=== PATIENT | female | born 1935 | race Caucasian/White ===

== ENCOUNTER 2017-04-30 16:18 | Emergency (ER) | payer MEDICARE, OTHER ==
[2016-12-21 07:58] VITALS: Wt 81.6 kg
[~2017-04-30 16:18] MED LIST: ALEN70TA43 PO; AMLO-96 PO; AMLO2.5T74 PO; ASPI-1471 PO; ATOR-1 PO; ATOR10TA24 PO; ATR80PT PO; AZIT-1 PO; BUME0.5T3 PO; BUME1TAB19 PO; BUME1TAB4 PO; CALC500T42 PO; CALC600T72 PO; CHOL100052 PO; CHOL200022 PO; CIT500PT PO; CLON-303 PO; CLOP75TA PO; CYAN25004 PO; CYCL10TA29 PO; DEXL60CA6 PO; ECHI80CA2 PO; FLAX340P2 PO; FLONASE; FLU180SY9 IM; FLU45SYR25 IM ONLY; FLUT50DI3 IH; FOLI-68 PO; FURO-45 PO; FURO-47 PO; GEM600 PO; GEMF600T91 PO; GLIM1TAB25 PO; GLUC100026 PO; GUAI-274 PO; GUAI600T57 PO; GUALA600 PO; HYDR-385 PO; HYDR-4309 PO; HYDR5SUS PO; IBAN150T6 PO; IBUP200C71 PO; IBUP800T37 PO; LACT1CAP6 PO; LEVO-271 PO; LEVO75TA68 PO; LEVO75TA7 PO; LEVO75TA73 PO; LINA145C PO; LOR5/325 PO; MAGN250T25 PO; MECL12.5 PO; METF-410 PO; METF-420 PO; MILK500C2 PO; MON10 PO; MONT10TA22 PO; MUCINEX; MULT-1335 PO; MULT-820 PO; NEXIUM; NITR0.4T3 SL; NYST1POW24 PO; OMEG-97 PO; OMEG500C5 PO; OMEP-137 PO; OMEP40CA48 PO; PANT40TA65 PO; PNEU0.5D3 IM; POLY17PO25 PO; POT10 PO; POTA10CA40 PO; POTA2.5T7 PO; POTA20TA10 PO; POTA20TA94 PO; PRED20TA6 PO; RABE20TA33 PO; RANI-324 PO; RANI75TA5 PO; ROPI3TAB16 PO; ROSU10TA3 PO; SINGULAR; ZINC15TA4 PO; [UNRECOGNIZED DRUG - CODE] PO
--- NOTE | 2017-04-30 16:30 | ER Report ---
History and Physical Time Seen By MD: 16:29 HPI/ROS CHIEF COMPLAINT: Epigastric pain HISTORY OF PRESENT ILLNESS: 81-year-old female patient presents to emergency room with complaint of epigastric abdominal pain. Patient states this has been going on today. She states it started this morning after she ate breakfast. She states that shortly after eating she developed discomfort in the epigastric region. She states that the pain persisted for approximately an hour and then became significantly worse. She consider coming to the emergency room at that time when it completely resolved on its own. She states that she waited a few hours and then 8 a pair. She states that she took her first by the pair that the pain returned. She states the pain is moderate this time. She denies having any nausea, vomiting or diarrhea. She has not taken any medication for this. Patient states she does have a history of cholecystectomy. REVIEW OF SYSTEMS: Respiratory: No cough, no dyspnea. Cardiovascular: No chest pain, no palpitations. Gastrointestinal: As noted above Musculoskeletal: No back pain. Allergies: Coded Allergies: meclizine (Verified Allergy, Intermediate, Dizziness, 12/20/16) chlorpheniramine (Verified Allergy, Unknown, 12/20/16) pseudoephedrine (Verified Allergy, Unknown, 12/20/16) Home Meds Active Scripts Guaifenesin (TUSSIN) 100 Mg/5 Ml Liquid, 100 MG PO Q4-6H, #200 ML Prov:ISABEL CURTIS MD 04/09/17 Glimepiride (GLIMEPIRIDE) 1 Mg Tablet, 1 MG PO QDAY, #10 TAB Prov:ISABEL CURTIS MD 01/29/17 Glimepiride (GLIMEPIRIDE) 1 Mg Tablet, 1 MG PO QDAY, #90 TAB 3 Refills Prov:ISABEL CURTIS MD 01/29/17 Folic Acid (FOLIC ACID) 1 Mg Tablet, 1 MG PO QDAY for low hgb, #90 TAB 3 Refills Prov:ISABEL CURTIS MD 08/14/16 Levothyroxine Sodium (LEVOTHYROXINE SODIUM) 75 Mcg Tablet, 1 TAB PO QDAY, #90 TAB 4 Refills Prov:ISABEL CURTIS MD 08/14/16 Linaclotide (LINZESS) 145 Mcg Capsule, 1 CAP PO DAILY, #90 CAPSULE 3 Refills Prov:ISABEL CURTIS MD 04/25/16 Reported Medications Echinacea Purpurea Root (ECHINACEA) 80 Mg Capsule, 80 MG PO DAILY, CAPSULE 01/10/17 Ranitidine Hcl (ZANTAC) 150 Mg Tablet, 150 MG PO BID, TAB 01/10/17 Aspirin (ASPIR 81) 81 Mg Tablet.dr, 1 TAB PO QDAY, TAB 11/09/16 Nitroglycerin (NITROGLYCERIN) 0.4 Mg Tab.subl, 1 TAB SL Q5MIN Y for PAIN Max 3 doses. Call 911 if pain is not relieved. 11/09/16 Amlodipine Besylate (AMLODIPINE BESYLATE) 5 Mg Tablet, 1 TAB PO QDAY, TAB 11/09/16 Clopidogrel Bisulfate (CLOPIDOGREL) 75 Mg Tablet, 1 TAB PO QDAY, TAB 11/09/16 Cyanocobalamin (Vitamin B-12) (Vitamin B12) 2,500 Mcg Tablet, 1 TAB PO DAILY 02/22/16 Guaifenesin (MUCINEX) 600 Mg Tablet.er, PO PRN 04/15/15 Calcium Carbonate (Calcium) 600 Mg Tablet, 1 TAB PO DAILY, 0 Refills 08/11/10 Multivitamins W-Minerals (Multiple Vitamin) 1 Tab Tablet, 1 TAB PO DAILY, 0 Refills 08/11/10 Discontinued Reported Medications Lactobacillus Combination No.4 (PROBIOTIC) 1 Each Capsule, 1 EACH PO DAILY, CAPSULE 01/10/17 Discontinued Scripts Hydrocodone/Chlorphen Polis (HYDROCODONE-CHLORPHENIRAM SUSP) 5 Ml Yaneth.er.12h, 1 TSP PO BID, #100 ML Prov:ISABEL CURTIS MD 04/09/17 Azithromycin (ZITHROMAX) 250 Mg Tablet, 2 TAB PO ONCE, #6 TAB Two tabs now and then 1 daily for 4 days Prov:ISABEL CURTIS MD 04/09/17 Atorvastatin Calcium (LIPITOR) 10 Mg Tablet, 1 TAB PO HS, #30 TAB Prov:IASBEL CURTIS MD 03/27/17 Hydrocodone Bit/Acetaminophen (HYDROCODON-ACETAMINOPHEN 5-325) 1 Each Tablet, 1 EACH PO TID for PAIN MDD 4, #30 TAB Prov:ISABEL CURTIS MD 08/28/16 Past Medical/Surgical History Patient has a past medical history of migraines, hypertension, hyperlipidemia, asthma, chronic bronchitis, history of esophageal issues, heartburn, back and hip pain, diabetes, hypothyroidism, depression, anxiety, leukemia. Patient has surgical history of orthopedic surgery, breast biopsy, colonoscopy, EGD, cholecystectomy, cardiac stent. Patient has a family medical history of cancer, CAD, stroke, diabetes. Reviewed Nurses Notes: Yes Hx Smoking: No Smoking Status: Never Smoker Exposure to Second Hand Smoke?: No Constitutional Vital Sign - Last 24 Hours 04/30/17 04/30/17 16:26 19:28 Temp 99.2 98.7 Pulse 87 Resp 18 B/P (MAP) 153/58 Pulse Ox 98 O2 Delivery Nasal Cannula Physical Exam General Appearance: The patient is alert, has no immediate need for airway protection and no current signs of toxicity. Respiratory: Chest is non tender, lungs are clear to auscultation. Cardiac: regular rate and rhythm Gastrointestinal: Abdomen is soft and tender in the epigastric region, no masses , bowel sounds normal. Musculoskeletal: Neck: Neck is supple and non tender. Extremities have full range of motion and are non tender. Skin: No rashes or lesions. DIFFERENTIAL DIAGNOSIS: After history and physical exam differential diagnosis was considered for reflux, pancreatitis, gastroenteritis. Medical Decision Making Data Points Result Diagram: 04/30/17 1720 04/30/17 1720 Laboratory Hematology Test 06/17/15 00:00 04/30/17 17:20 04/30/17 18:40 Neutrophils # 2.6 th/mm3 Hematocrit 9.0 g/dl Hemoglobin 27.4 g/dl Platelet Count 306 th/mm3 White Blood Count 4.2 th/mm3 Albumin 4.7 g/dl 4.0 g/dl (3.5-5.0) Alkaline Phosphatase 77 IU/L 145 U/L (0-126) Alanine Aminotransferase (ALT/SGPT) 25 u/L 211 U/L (0-56) Aspartate Amino Transf (AST/SGOT) 19 gloria/L 311 U/L (0-35) Blood Urea Nitrogen 16 mg/dl 12 mg/dl (7-18) Calcium Level 9.5 mg/dl 9.8 mg/dl (8.4-10.2) Chloride Level 96 mmol/L 103 mmol/L (98-107) Carbon Dioxide Level 26 mmol/L 26 mmol/L (22-31) Creatinine 0.72 mg/dl 0.60 mg/dl (0.52-1.04) Glucose Level 86 mg/dl Potassium Level 4.1 mmol/L 3.9 mmol/L (3.5-5.0) Sodium Level 138 mmol/L 139 mmol/L (137-145) Total Protein 6.4 g/dl 6.7 gm/dl (6.3-8.2) Total Bilirubin 0.9 mg/dl 3.6 mg/dl (0.2-1.3) Red Blood Count 2.73 M/uL (4.17-5.56) Mean Corpuscular Volume 95.1 fL (80.0-96.0) Mean Corpuscular Hemoglobin 31.0 pg (26.0-33.0) Mean Corpuscular Hemoglobin Concent 32.6 g/dL (32.0-36.0) Red Cell Distribution Width 20.5 % (11.5-14.5) Mean Platelet Volume 8.7 fL (7.2-11.1) Neutrophils (%) (Auto) 54.2 % (39.4-72.5) Lymphocytes (%) (Auto) 33.8 % (17.6-49.6) Monocytes (%) (Auto) 10.7 % (4.1-12.4) Eosinophils (%) (Auto) 0.1 % (0.4-6.7) Basophils (%) (Auto) 1.2 % (0.3-1.4) Nucleated RBC Relative Count (auto) 0.1 /100WBC Neutrophils # (Auto) 1.2 K/uL (2.0-7.4) Lymphocytes # (Auto) 0.7 K/uL (1.3-3.6) Monocytes # (Auto) 0.2 K/uL (0.3-1.0) Eosinophils # (Auto) 0.0 K/uL (0.0-0.5) Basophils # (Auto) 0.0 K/uL (0.0-0.1) Nucleated RBC Absolute Count (auto) 0.00 K/uL Glomerular Filtration Rate Calc > 60.0 Random Glucose 90 mg/dl (75-110) Troponin I < 0.012 ng/ml Amylase Level 53 U/L (0-110) Lipase 25 U/L (23-300) Urine Color Yellow Urine Clarity Clear Urine pH 7.0 pH (4.8-9.5) Urine Specific [place] 1.032 Urine Protein Negative mg/dL (NEGATIVE) Urine Glucose (UA) Negative mg/dL (NEGATIVE) Urine Ketones Negative mg/dL (NEGATIVE) Urine Blood Negative (NEGATIVE) Urine Nitrite Negative (NEGATIVE) Urine Bilirubin Negative (NEGATIVE) Urine Urobilinogen 4.0 mg/dL (0.2-1.9) Urine Leukocyte Esterase Negative (NEGATIVE) Urine RBC <1 /HPF (0-2/HPF) Urine WBC <1 /HPF (0-5/HPF) Urine Squamous Epithelial Cells None /LPF (</=FEW) Urine Bacteria Negative /HPF (NONE-FEW) Urine Mucus None /HPF (NONE-FEW) Chemistry Test 06/17/15 00:00 04/30/17 17:20 04/30/17 18:40 Neutrophils # 2.6 th/mm3 Hematocrit 9.0 g/dl 25.9 % (34.0-47.0) Hemoglobin 27.4 g/dl 8.5 g/dL (12.0-16.0) Platelet Count 306 th/mm3 263 K/uL (150-450) White Blood Count 4.2 th/mm3 2.2 k/uL (4.5-11.0) Albumin 4.7 g/dl 4.0 g/dl (3.5-5.0) Alkaline Phosphatase 77 IU/L 145 U/L (0-126) Alanine Aminotransferase (ALT/SGPT) 25 u/L 211 U/L (0-56) Aspartate Amino Transf (AST/SGOT) 19 gloria/L 311 U/L (0-35) Blood Urea Nitrogen 16 mg/dl Calcium Level 9.5 mg/dl 9.8 mg/dl (8.4-10.2) Chloride Level 96 mmol/L Carbon Dioxide Level 26 mmol/L Creatinine 0.72 mg/dl Glucose Level 86 mg/dl Potassium Level 4.1 mmol/L Sodium Level 138 mmol/L Total Protein 6.4 g/dl 6.7 gm/dl (6.3-8.2) Total Bilirubin 0.9 mg/dl 3.6 mg/dl (0.2-1.3) Red Blood Count 2.73 M/uL (4.17-5.56) Mean Corpuscular Volume 95.1 fL (80.0-96.0) Mean Corpuscular Hemoglobin 31.0 pg (26.0-33.0) Mean Corpuscular Hemoglobin Concent 32.6 g/dL (32.0-36.0) Red Cell Distribution Width 20.5 % (11.5-14.5) Mean Platelet Volume 8.7 fL (7.2-11.1) Neutrophils (%) (Auto) 54.2 % (39.4-72.5) Lymphocytes (%) (Auto) 33.8 % (17.6-49.6) Monocytes (%) (Auto) 10.7 % (4.1-12.4) Eosinophils (%) (Auto) 0.1 % (0.4-6.7) Basophils (%) (Auto) 1.2 % (0.3-1.4) Nucleated RBC Relative Count (auto) 0.1 /100WBC Neutrophils # (Auto) 1.2 K/uL (2.0-7.4) Lymphocytes # (Auto) 0.7 K/uL (1.3-3.6) Monocytes # (Auto) 0.2 K/uL (0.3-1.0) Eosinophils # (Auto) 0.0 K/uL (0.0-0.5) Basophils # (Auto) 0.0 K/uL (0.0-0.1) Nucleated RBC Absolute Count (auto) 0.00 K/uL Glomerular Filtration Rate Calc > 60.0 Troponin I < 0.012 ng/ml Amylase Level 53 U/L (0-110) Lipase 25 U/L (23-300) Urine Color Yellow Urine Clarity Clear Urine pH 7.0 pH (4.8-9.5) Urine Specific [place] 1.032 Urine Protein Negative mg/dL (NEGATIVE) Urine Glucose (UA) Negative mg/dL (NEGATIVE) Urine Ketones Negative mg/dL (NEGATIVE) Urine Blood Negative (NEGATIVE) Urine Nitrite Negative (NEGATIVE) Urine Bilirubin Negative (NEGATIVE) Urine Urobilinogen 4.0 mg/dL (0.2-1.9) Urine Leukocyte Esterase Negative (NEGATIVE) Urine RBC <1 /HPF (0-2/HPF) Urine WBC <1 /HPF (0-5/HPF) Urine Squamous Epithelial Cells None /LPF (</=FEW) Urine Bacteria Negative /HPF (NONE-FEW) Urine Mucus None /HPF (NONE-FEW) Urinalysis Test 04/30/17 18:40 Urine Color Yellow Urine Clarity Clear Urine pH 7.0 pH (4.8-9.5) Urine Specific [place] 1.032 Urine Protein Negative mg/dL (NEGATIVE) Urine Glucose (UA) Negative mg/dL (NEGATIVE) Urine Ketones Negative mg/dL (NEGATIVE) Urine Blood Negative (NEGATIVE) Urine Nitrite Negative (NEGATIVE) Urine Bilirubin Negative (NEGATIVE) Urine Urobilinogen 4.0 mg/dL (0.2-1.9) Urine Leukocyte Esterase Negative (NEGATIVE) Urine RBC <1 /HPF (0-2/HPF) Urine WBC <1 /HPF (0-5/HPF) Urine Squamous Epithelial Cells None /LPF (</=FEW) Urine Bacteria Negative /HPF (NONE-FEW) Urine Mucus None /HPF (NONE-FEW) EKG/Imaging EKG Interpretation 12 lead EKG: Rhythm: normal sinus rhythm with a ventricular rate of 74 bpm [place]: normal QRS: normal ST segments: normal Imaging EXAMINATION: Chest radiographs 2 views HISTORY: Epigastric abdominal pain. COMPARISON: 04/04/2017 FINDINGS: PA and lateral views of the chest are submitted. Lines/tubes: None. Lungs/pleura: No focal consolidation or pleural effusion. Linear scarring or atelectasis at the left lung base. No evidence of pneumothorax. Pulmonary vascularity is within normal limits. Heart: Normal heart size. Mediastinum: Calcified plaque at the aortic arch. Bony structures/body wall: Multilevel degenerative changes in the spine. Multiple chronic healed rib fracture deformities. IMPRESSION: No radiographic evidence of acute cardiopulmonary disease. Report Dictated By: Gallo Reeves MD at 04/30/2017 6:31 PM Report E-Signed By: Gallo Reeves MD at 04/30/2017 6:34 PM ED Course/Re-evaluation ED Course Patient was admitted to an exam room, history and physical were obtained. Differential diagnoses were considered. On examination patient has some tenderness in the epigastric region. A CBC, CMP, chest x-ray, troponin, EKG, CT scan of abdomen and pelvis were done. The lab results were fairly normal for the patient. She did have a low H&H but that is fairly consistent for the patient. Patient did have elevated liver enzymes which is new. The CT scan of the abdomen and pelvis was negative for any acute findings. Patient did have a small hiatal hernia which makes me believe that is what the underlying cause of her pain is. We will go ahead and start her on Protonix. I discussed the findings with the patient. In the patient has elevated liver enzymes I'm not finding a cause for that. She's not really having any pain over the liver. We will go ahead and discharge patient home. She is to follow-up with Dr. daniel in the next 2 weeks. At that time we will recheck her liver enzymes and make sure that everything looks okay. I discussed the patient who verbalized understanding and agreement. Decision to Disposition Date: Apr 30, 2017 Decision to Disposition Time: 19:13 Depart Departure Latest Vital Signs Vital Signs Date Time Temp Pulse Resp B/P (MAP) Pulse Ox O2 Delivery O2 Flow Rate FiO2 04/30/17 19:28 98.7 04/30/17 16:26 87 18 153/58 98 Nasal Cannula Impression: Primary Impression: Elevated liver enzymes Additional Impression: Epigastric abdominal pain Condition: Improved Disposition: HOME OR SELF-CARE Referrals: ISABEL CURTIS MD (PCP) New Scripts Pantoprazole Sodium (PANTOPRAZOLE SODIUM) 40 Mg Tablet. 40 MG PO QDAY, #30 TAB.SR Prov: JANNET SHULTZ 04/30/17 Patient Instructions: Epigastric Pain (ED) Additional Instructions: Increase fluid intake. Get plenty of rest. Try eating foods today and tomorrow that are easy on your stomach. Follow up with Dr. Curtis in 2 week to have your liver enzymes checked at that time. Return to the ER if condition worsens. Problem Qualifiers JANNET SHULTZ Apr 30, 2017 16:30
[2017-04-30] MEDS ORDERED: NS 0.9% 50 ML VIAL 50 ML ONE (17:02)
[2017-04-30] MEDS ORDERED: IOPAMIDOL 76% 75 ML INFUS BTL 75 ML ONE (17:02)
[2017-04-30 17:30] LABS: PLATELET COUNT, AUTOMATED 263 K/uL (150-450)
--- NOTE | 2017-04-30 17:59 | EKG ---
FACILITY: [facility] - [place] PATIENT NAME: FRANCOIS LLAMAS : [id number] MR: [id number] V: [id number] EXAM DATE: ORDERING PHYSICIAN: JANNET SHULTZ TECHNOLOGIST: Test Reason : Blood Pressure : / mmHG Vent. Rate : 074 BPM Atrial Rate : 074 BPM P-R Int : 142 ms QRS Dur : 084 ms QT Int : 386 ms P-R-T Axes : 040 -07 039 degrees QTc Int : 428 ms Normal sinus rhythm Normal ECG When compared with ECG of 20-DEC-2016 21:14, Nonspecific T wave abnormality, improved in Lateral leads Confirmed by CLARISSA MORENO ([id number]) on 04/30/2017 9:42:41 PM Referred By: CHUCK Confirmed By:CLARISSA MORENO
--- NOTE | 2017-04-30 18:37 | RADIOLOGY IMAGING REPORT ---
FACILITY: [facility] - [place] PATIENT NAME: Mala Villela : 1935 MR: [id number] V: [id number] EXAM DATE: ORDERING PHYSICIAN: JANNET SHULTZ TECHNOLOGIST: Location: [facility] Patient: Mala Villela : 1935 Visit/Account:[id number] Date of Sevice: 04/30/2017 EXAMINATION: Chest radiographs 2 views HISTORY: Epigastric abdominal pain. COMPARISON: 04/04/2017 FINDINGS: PA and lateral views of the chest are submitted. Lines/tubes: None. Lungs/pleura: No focal consolidation or pleural effusion. Linear scarring or atelectasis at the left lung base. No evidence of pneumothorax. Pulmonary vascularity is within normal limits. Heart: Normal heart size. Mediastinum: Calcified plaque at the aortic arch. Bony structures/body wall: Multilevel degenerative changes in the spine. Multiple chronic healed rib fracture deformities. IMPRESSION: No radiographic evidence of acute cardiopulmonary disease. Report Dictated By: Gallo Reeves MD at 04/30/2017 6:31 PM Report E-Signed By: Gallo Reeves MD at 04/30/2017 6:34 PM WSN:[id number]
--- NOTE | 2017-04-30 18:55 | RADIOLOGY IMAGING REPORT ---
FACILITY: [facility] - [place] PATIENT NAME: Mala Villela : 1935 MR: [id number] V: [id number] EXAM DATE: ORDERING PHYSICIAN: JANNET SHULTZ TECHNOLOGIST: Location: [facility] Patient: Mala Villela : 1935 Visit/Account:[id number] Date of Sevice: 04/30/2017 EXAMINATION: CT abdomen and pelvis with IV contrast HISTORY: Epigastric abdominal pain. TECHNIQUE: Axial CT images of the abdomen and pelvis were obtained with IV contrast, with coronal a nd sagittal 2D reconstructed images. One of the following dose optimization techniques was utilized in the performance of this exam: Autom ated exposure control; adjustment of the mA and/or kV according to the patient's size; or use of an i terative reconstruction technique. Specific details can be referenced in the facility's radiology C T exam operational policy. Contrast: 75 mL of IV Isovue-370. COMPARISON: Lumbar spine CT 02/15/2015. CT abdomen/pelvis 12/17/2012. FINDINGS: Liver: Negative. Gallbladder and bile ducts: Cholecystectomy. No bile duct dilatation. Spleen: A 1 cm hypodense lesion in the central spleen is unchanged from the prior study of 2012 and should be benign. This has a nonspecific CT appearance. Pancreas: Negative. Adrenal glands: Negative. Kidneys: Negative. No hydronephrosis or urinary calculi. Bowel and peritoneum: The small bowel and colon are normal in caliber, without evidence of obstructi on or any focal inflammatory process. Scattered colonic diverticulosis, without evidence of diverticu litis. Unremarkable appendix in the right lower quadrant. No free fluid or free intraperitoneal air. Small hiatal hernia. Pelvic structures: 1.8 cm left adnexal cyst has increased slightly in size since the prior CT, pr eviously measuring 1.2 cm. Lymph node assessment: Negative. Vessels: Moderate vascular calcifications. Normal caliber abdominal aorta. Musculoskeletal: Compression fracture of L1, with 30% loss of height, new since the lumbar spine CT of 2014. There is stable mild superior endplate wedging of L5. Scattered degenerative changes along the spine. No other new osseous findings. Body wall: Negative. Lung bases: Negative. IMPRESSION: 1. No CT evidence of acute intra-abdominal pathology. No source of epigastric pain is identified. 2. Cholecystectomy. 3. Small hiatal hernia. 4. Colonic diverticulosis. 5. Stable 1 cm hypodensity in the central spleen, nonspecific but likely benign. 6. A nonspecific 1.8 cm left adnexal cyst has increased slightly in size. 7. Compression fracture of L1, new since 2015 but of indeterminate chronicity. Report Dictated By: Salvador Amado MD at 04/30/2017 6:24 PM Report E-Signed By: Salvador Amado MD at 04/30/2017 6:51 PM WSN:[id number]
[2017-04-30] MEDS ORDERED: PANTOPRAZOLE SOD 40 MG TABEC PO ONE (19:10)
[2017-04-30 19:23] VITALS: BP 121/61
[2017-04-30] MEDS ORDERED: PANT40TA65 PO (19:34)
== END 2017-04-30 19:45 | disposition home or self-care (01) ==
LOC: ER 16:36
DX: R10.13 Epigastric pain (principal); R79.89 Other specified abnormal findings of blood chemistry
CPT/HCPCS: 36415; 71046; 74177; 81001; 82150; 83690; 84484; 85025; 93005; 99284; A9270; J7050; Q9967; 82040; 82247; 82310; 82374; 82435; 82565; 82947; 84075; 84132; 84155; 84295; 84450; 84460; 84520

== ENCOUNTER → 2017-05-14 | Outpatient (CLI) | payer MEDICARE, OTHER ==
[2016-12-21 07:58] VITALS: BMI 31.6
[~2017-05-14] MED LIST changes: +ROSU10TA13 PO; -ROSU10TA3 PO
== END ==
LOC: LAB 15:26
PROVIDERS: ATTEND Emergency Medicine
DX: R74.8 Abnormal levels of other serum enzymes (principal); M85.80 Other specified disorders of bone density and structure, unspecified site; E11.9 Type 2 diabetes mellitus without complications
CPT/HCPCS: 36415; 82040; 82247; 82248; 82306; 83036; 84075; 84155; 84450; 84460

== ENCOUNTER 2017-07-04 12:57 | Outpatient (RCR) | payer MEDICARE, OTHER ==
[2016-12-21 07:58] VITALS: Ht 157.5 cm; Wt 81.6 kg
[2017-04-11 13:15] VITALS: BP 137/61
[2017-04-11 13:30] LABS: PLATELET COUNT, AUTOMATED 277 K/uL (150-450)
[2017-04-13] MEDS: NS(*) 0.9% 500 ML BAG 500 ML IV PRN (09:00)
[2017-04-13 09:21] VITALS: BP 118/45
[2017-04-13 09:35] VITALS: BP 122/47
[2017-04-13 10:43] VITALS: BP 122/47
[2017-04-13 11:51] VITALS: BP 125/56
[2017-04-13 14:17] VITALS: BP 126/55
[2017-04-25 13:04] VITALS: BP 135/65
[2017-04-25 13:58] LABS: PLATELET COUNT, AUTOMATED 213 K/uL (150-450)
[2017-05-02 13:29] VITALS: BP 127/80
[2017-05-02 13:34] LABS: PLATELET COUNT, AUTOMATED 254 K/uL (150-450)
[2017-05-10 13:07] VITALS: BP 133/66
[2017-05-10 13:10] LABS: PLATELET COUNT, AUTOMATED 322 K/uL (150-450)
[2017-05-11 12:10] VITALS: BP 119/44
[2017-05-11 12:22] VITALS: BP 129/64
[2017-05-11 14:15] VITALS: BP 102/40
[2017-05-11 14:21] VITALS: BP_SYST 102; BP_SYST 107; BP_DIAS 40; BP_DIAS 46
[2017-05-16 13:07] VITALS: BP 128/51
[2017-05-16 13:11] LABS: PLATELET COUNT, AUTOMATED 222 K/uL (150-450)
[2017-05-24 09:38] LABS: PLATELET COUNT, AUTOMATED 244 K/uL (150-450)
[2017-05-25 13:07] VITALS: BP 139/57
[2017-05-25] MEDS: NS(*) 0.9% 500 ML BAG 500 ML IV PRN (13:22)
[2017-05-25] MEDS: LIDOCAINE/SOD BICARB 8.4% SYR ID PRN (13:22)
[2017-05-25 13:42] VITALS: BP 139/57
[2017-05-25 13:58] VITALS: BP 125/50
[2017-05-25 15:28] VITALS: BP 138/64
[2017-05-29 14:08] VITALS: BP 138/64
[2017-06-06 15:40] VITALS: BP 134/60
[2017-06-07 08:25] VITALS: BP 122/78
[2017-06-07 08:54] VITALS: BP 122/78
[2017-06-07] MEDS: LIDOCAINE/SOD BICARB 8.4% SYR ID PRN (09:01)
[2017-06-07] MEDS: NS(*) 0.9% 500 ML BAG 500 ML IV PRN (09:01)
[2017-06-07 09:09] VITALS: BP 122/80
[2017-06-07 09:12] VITALS: BP 122/80
[2017-06-07 11:41] VITALS: BP 117/56
[2017-06-13 13:22] VITALS: BP 126/70
[2017-06-20 14:12] VITALS: BP 122/53
[2017-06-21] MEDS: LIDOCAINE/SOD BICARB 8.4% SYR ID PRN (09:13)
[2017-06-21] MEDS: NS(*) 0.9% 500 ML BAG 500 ML IV PRN (09:14)
[2017-06-21 09:44] VITALS: BP 120/51
[2017-06-21 10:06] VITALS: BP 121/53
[2017-06-21 10:23] VITALS: BP 130/70
[2017-06-21 13:14] VITALS: BP 120/50
[2017-06-27 14:28] VITALS: BP 156/60
[2017-06-27 14:35] VITALS: BP 156/60
--- NOTE | 2017-06-27 20:11 | ONCOLOGY FOLLOW UP NOTE ---
EVENT DATE: June 27, 2017 REASON FOR FOLLOWUP 1. Myelodysplastic syndrome, chronic anemia. 2. Fatigue, dizziness. 3. Hereditary hemochromatosis heterozygosity. CHIEF COMPLAINT Fatigue, dietary limitations. INTERIM HISTORY Mala returns to clinic for a follow-up visit today. Today is her birthday, and she was late for her appointment, as she was fielding a lot of phone calls for well wishes. For the most part, she reports that things are going just the same. She is frustrated by her dietary limitations, as she has to make adjustments for her diabetes, her hemochromatosis, and other medical issues. She reports some ongoing aches and pains, and these have not changed. Most of her pain is sciatica pain. She reports no fever. She does have ongoing fatigue , but she tends to feel much better after receiving blood transfusions. She reports no melena or hematochezia. She has had no recurrent epistaxis. She has noticed no hematuria. REVIEW OF SYSTEMS Otherwise negative, and all systems were reviewed. PAST MEDICAL HISTORY 1. Hemochromatosis carrier. 2. 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 3. Myelodysplastic syndrome. HEMATOLOGY/ONCOLOGY HISTORY Myelodysplastic syndrome diagnosed December 25, 2012. Bone marrow biopsy performed at that time revealed findings consistent with low grade myelodysplastic syndrome, mildly hypercellular marrow for age with trilineage dysplasia, adequate storage iron and no evidence of lymphoma or plasma cell dyscrasia. Since that time she has been receiving transfusions periodically ( driven by symptoms) as well as Desferal. SOCIAL HISTORY The patient is a nonsmoker and nondrinker. There is no history of illicit drug use. She lives here in [place]. FAMILY HISTORY There is a history of hypertension, as well as history of leukemia in her twin sister. Her father had prostate cancer at age forty-nine and her mother had history of stroke. MEDICATIONS 1. Pantoprazole. 2. Guaifenesin. 3. Echinacea. 4. Zantac. 5. Aspirin. 6. Nitroglycerin. 7. Amlodipine. 8. Clopidogrel. 9. Folic acid. 10. Levothyroxine. 11. Linzess. 12. Vitamin B12. 13. Calcium. 14. Multivitamin. ALLERGIES 1. PSEUDOEPHEDRINE. 2. CHLORPHENIRAMINE. 3. MECLIZINE. VITAL SIGNS Temperature is 97.8, blood pressure 136/60, heart rate is 74, respirations 16, oxygen saturation is 99% on 3L nasal cannula. PHYSICAL EXAMINATION GENERAL: Patient is alert and oriented times three, in no apparent distress, sitting in the infusion chair. She is in good spirits, and quite interactive. HEENT: Exam reveals anicteric sclerae. NEUROLOGIC: Exam is grossly nonfocal, although her gait is somewhat antalgic. . EXTREMITIES: Exam reveals some slight edema of the lower extremities, but no clubbing or cyanosis. SKIN: Exam reveals no concerning rash or lesion. LABORATORY STUDIES Reviewed per the [facility] record. ASSESSMENT AND PLAN Myelodysplastic syndrome, hereditary hemochromatosis heterozygosity. Mala continues to do fairly well, all things considered. She is maintained with periodic blood transfusions, as she did not have a good response with prior erythropoietin injections. We spent time today discussing her current pattern of transfusion, as she is coming in fairly frequently to get one unit of blood. She prefers this, however, as opposed to receiving two units. She understands that this could potentially last a bit longer, but she does not want to change her schedule. We also discussed her nutritional limitations, and I do think it would be most important for her to eat according to her diabetic diet, as opposed to limiting iron. We are watching her iron status, with her most recent ferritin being 655. It has climbed somewhat, but at this point we will hold off on chelation therapy. I will plan to see her back in three months for follow-up, or sooner if there are questions or concerns. GEETA
[~2017-07-04] VITALS: Ht 157.5 cm; Wt 81.6 kg
[~2017-07-04 12:57] MED LIST changes: +ACETAMINOPHEN 325 MG TAB PO ONE; +ALTEPLASE RECOMB 2 MG VIAL IVP PRN; +DEFEROXAMINE IVPB ONE; +DEXTROSE 5%(*) 100 ML BAG 100 ML IVPB PRN; +NS(*) 0.9% 100 ML BAG 100 ML IVPB PRN; +SODIUM CHLORIDE 0.9% IVPB ONE; +WATER STERILE 10 ML VIAL IVP PRN; +[UNRECOGNIZED DRUG - OTHER] IVPB ONE; +diphenhydrAMINE 25 MG CAP PO ONE
[2017-07-04 13:04] VITALS: BP 147/65
== END 2017-07-09 ==
LOC: SPU 12:57
PROVIDERS: ATTEND Internal Medicine Medical Oncology
DX: D46.9 Myelodysplastic syndrome, unspecified (principal); E83.110 Hereditary hemochromatosis; D53.9 Nutritional anemia, unspecified; E03.9 Hypothyroidism, unspecified; R53.83 Other fatigue; R42 Dizziness and giddiness; Z28.9 Immunization not carried out for unspecified reason; Z79.82 Long term (current) use of aspirin; Z79.899 Other long term (current) drug therapy
CPT/HCPCS: 36415; 36430; 82728; 83540; 83550; 83615; 85025; 85027; 85379; 86850; 86900; 86901; 86920; 96361; 96365; 96366; A9270; G0463; J0895; J7040; J7050; P9016; P9040; Q0163; 82040; 82247; 82310; 82374; 82435; 82565; 82947; 84075; 84132; 84155; 84295; 84450; 84460; 84520; 99212

== ENCOUNTER 2017-07-31 01:30 | Day surgery (SDC) | payer MEDICARE, OTHER ==
[2016-12-21 07:58] VITALS: Ht 154.9 cm; Wt 73.0 kg
[~2017-07-31] VITALS: Ht 154.9 cm; Wt 73.0 kg
[~2017-07-31 01:30] MED LIST changes: -ACETAMINOPHEN 325 MG TAB PO ONE; -ALTEPLASE RECOMB 2 MG VIAL IVP PRN; -DEFEROXAMINE IVPB ONE; -DEXTROSE 5%(*) 100 ML BAG 100 ML IVPB PRN; +LOSA50TA72 PO; -NS(*) 0.9% 100 ML BAG 100 ML IVPB PRN; +NSNAS; +OMEG-96 PO; -SODIUM CHLORIDE 0.9% IVPB ONE; -WATER STERILE 10 ML VIAL IVP PRN; -[UNRECOGNIZED DRUG - OTHER] IVPB ONE; -diphenhydrAMINE 25 MG CAP PO ONE
[2017-07-31] MEDS ORDERED: FAMOTIDINE 20 MG/50 ML PREMIX IVPB ONE (08:20)
[2017-07-31] MEDS ORDERED: NS(*) 0.9% 10 ML VIAL 20 ML ONE (08:41)
[2017-07-31] MEDS ORDERED: ROPIVACAINE 0.2% 20 ML VIAL ONE (08:41)
[2017-07-31] MEDS ORDERED: HEPARIN SOD LCK FLSH 100 UN/ML ONE ×2 (08:42)
[2017-07-31 09:41] VITALS: BP 143/65
--- NOTE | 2017-07-31 09:44 | General Surgery 1 H&P ---
History of Present Illness Chief Complaint myelodysplasia History of Present Illness 82 yo female with a history of aschd, cardiac stents, copd, htn, dm and cva has myelodysplasia and poor peripheral venous access. History Other Past Surgeries: cholecystectomy, cardiac stent, tonsillectomy, egd, colonoscopy, and orthopedic operations Home Meds Active Scripts Linaclotide (LINZESS) 145 Mcg Capsule, 1 CAP PO DAILY, #90 CAPSULE 3 Refills Prov:ISABEL MOYA MD 06/29/17 Folic Acid (FOLIC ACID) 1 Mg Tablet, 1 MG PO QDAY for low hgb, #90 TAB 3 Refills Prov:ISABEL MOYA MD 08/14/16 Levothyroxine Sodium (LEVOTHYROXINE SODIUM) 75 Mcg Tablet, 1 TAB PO QDAY, #90 TAB 4 Refills Prov:ISABEL MOYA MD 08/14/16 Reported Medications Saline (AYR SALINE NASAL GEL) 14.1 Gm Gel, 14.1 GM NA DAILY, GEL 07/30/17 [place]-3 Fatty Acids/Fish Oil (OMEGA 3 1,000 MG SOFTGEL) 1 Each Capsule, 2 EACH PO QDAY, CAPSULE 07/30/17 Losartan Potassium (LOSARTAN POTASSIUM) 50 Mg Tablet, 50 MG PO QDAY 07/30/17 Aspirin (ASPIR 81) 81 Mg Tablet.dr, 1 TAB PO QDAY, TAB 11/09/16 Nitroglycerin (NITROGLYCERIN) 0.4 Mg Tab.subl, 1 TAB SL Q5MIN Y for PAIN Max 3 doses. Call 911 if pain is not relieved. 11/09/16 Clopidogrel Bisulfate (CLOPIDOGREL) 75 Mg Tablet, 1 TAB PO QDAY, TAB 11/09/16 Cyanocobalamin (Vitamin B-12) (Vitamin B12) 2,500 Mcg Tablet, 1 TAB PO DAILY 02/22/16 Guaifenesin (MUCINEX) 600 Mg Tablet.er, PO PRN 04/15/15 Calcium Carbonate (Calcium) 600 Mg Tablet, 1 TAB PO DAILY, 0 Refills 08/11/10 Multivitamins W-Minerals (Multiple Vitamin) 1 Tab Tablet, 1 TAB PO DAILY, 0 Refills 08/11/10 Discontinued Reported Medications Ranitidine Hcl (ZANTAC) 150 Mg Tablet, 150 MG PO BID, TAB 01/10/17 Amlodipine Besylate (AMLODIPINE BESYLATE) 5 Mg Tablet, 1 TAB PO QDAY, TAB 11/09/16 Discontinued Scripts Pantoprazole Sodium (PANTOPRAZOLE SODIUM) 40 Mg Tablet.dr, 40 MG PO QDAY, #30 TAB.SR Prov:JANNET SHULTZ COMPTROLLER 04/30/17 Guaifenesin (TUSSIN) 100 Mg/5 Ml Liquid, 100 MG PO Q4-6H, #200 ML Prov:ISABEL MOYA MD 04/09/17 Allergies: Coded Allergies: meclizine (Verified Allergy, Intermediate, Dizziness, 12/20/16) chlorpheniramine (Verified Allergy, Unknown, 12/20/16) pseudoephedrine (Verified Allergy, Unknown, 12/20/16) Family History: FH: HTN (hypertension) MOTHER, , Age:81 FH: diabetes mellitus FATHER, , Age:49 BROTHER OR SISTER, FH: leukemia TWIN SISTER FH: prostate cancer FATHER, , Age:49 BROTHER OR SISTER, FH: stroke MOTHER, , Age:81 Review of Systems History of Hypertension?: Yes History of Diabetes?: Yes History of DVT?: No Obstructive Sleep Apnea?: Yes History of Liver Disease?: No History of Kidney Disease?: No Other ROS Findings: myelodysplasia, aschd, cva, copd Exam General Appearance: Alert, Awake, No Acute Distress Cardiovascular: Regular Rate and Rhythm Respiratory: Clear to Auscultation GI: Abd Soft and Non-Tender Assessment and Plan Problems: (1) Myelodysplastic syndrome, unspecified Status: Chronic Assessment & Plan: power port placement Copies to: [facility]; FRANCIE CORNEJO MD Venous Thromboembolism Antithrombotics Is Pt On Any Antithrombotics?: Yes FRANCIE CORNEJO MD Jul 31, 2017 09:44
--- NOTE | 2017-07-31 09:46 | NACHTIGAL H&P ---
DATE OF ADMISSION: July 31, 2017 CHIEF COMPLAINT Myelodysplasia. HISTORY OF PRESENT ILLNESS This is an 82-year-old female with atherosclerotic coronary disease with a stent in place. She has COPD and she is on oxygen. She has diabetes mellitus and she has a myelodysplasia and she has poor peripheral venous access and she needs a port placement for venous access for treatment. ALLERGIES LATEX gloves. CURRENT MEDICATIONS 1. Aspirin. 2. Calcium. 3. Vitamin B12. 4. Folic acid. 5. Levothyroxine. 6. Losartan. 7. Mucinex. 8. Multivitamin. 9. Nitroglycerin p.r.n. 10. Oxygen. 11. Plavix. PAST MEDICAL HISTORY/OPERATIONS Operations are cholecystectomy and colonoscopy. REVIEW OF SYSTEMS Significant for the history of diabetes, atherosclerotic coronary disease, COPD , and the myeloproliferative disorder. PHYSICAL EXAMINATION An 82-year-old female in no acute distress. IMPRESSION Myelodysplasia. PLAN Port placement. We discussed the procedure, complications and recovery time. She seems to understand and wishes to proceed. GEETA
[2017-07-31] MEDS ORDERED: DEXAMETHASONE SOD PHOS 10MG/ML ONE (09:50)
[2017-07-31] MEDS ORDERED: PROPOFOL EMUL(*) 10MG/ML 20 ML 40 ML ONE (09:50)
[2017-07-31] MEDS ORDERED: SUCCINYLCHOL CHL 200MG/10ML VL ONE (09:50)
[2017-07-31] MEDS ORDERED: ONDANSETRON 4 MG/2 ML VIAL ONE (09:50)
[2017-07-31] MEDS ORDERED: NORMOSOL R SOLN(*) 1000 ML BAG 1,000 ML IV PRN (10:05)
[2017-07-31] MEDS ORDERED: ceFAZolin(*) 2GM/D5W 50ML 50 ML IVPB ONE (10:05)
[2017-07-31] MEDS ORDERED: LIDOCAINE/SOD BICARB 8.4% SYR ID ONE (10:05)
[2017-07-31] MEDS ORDERED: FAMOTIDINE 20 MG TAB PO ONE (10:05)
[2017-07-31] MEDS ORDERED: MIDAZOLAM 2 MG/2 ML VIAL IVP PRN (10:05)
--- NOTE | 2017-07-31 11:19 | Post Operative Progress Note ---
Post Operative Progress Note Date: Jul 31, 2017 Time: 11:18 Surgeon: bonita Anesthesia: dr foley Pre-Op Diagnosis: myelodysplasia Post-Op Diagnosis: same Procedure(s): power port placement FRANCIE CORNEJO MD Jul 31, 2017 11:19
[2017-07-31] MEDS ORDERED: HYDR-4309 PO (11:20)
--- NOTE | 2017-07-31 11:20 | Short(Outpt) Discharge Summary ---
Discharge Summary Reason for Hosp/Final Diag: (1) Myelodysplastic syndrome, unspecified Status: Chronic Hospital Course & Plan: power port placement Departure Discharge to: Home Discharge Instructions Home Meds Active Scripts Hydrocodone Bit/Acetaminophen (NORCO 5-325 TABLET) 1 Each Tablet, 1 EACH PO Q4H Y for PAIN, #20 TAB Prov:FRANCIE CORNEJO MD 07/31/17 Linaclotide (LINZESS) 145 Mcg Capsule, 1 CAP PO DAILY, #90 CAPSULE 3 Refills Prov:ISABEL MOYA MD 06/29/17 Folic Acid (FOLIC ACID) 1 Mg Tablet, 1 MG PO QDAY for low hgb, #90 TAB 3 Refills Prov:ISABEL MOYA MD 08/14/16 Levothyroxine Sodium (LEVOTHYROXINE SODIUM) 75 Mcg Tablet, 1 TAB PO QDAY, #90 TAB 4 Refills Prov:ISABEL MOYA MD 08/14/16 Reported Medications Saline (AYR SALINE NASAL GEL) 14.1 Gm Gel, 14.1 GM NA DAILY, GEL 07/30/17 [place]-3 Fatty Acids/Fish Oil (OMEGA 3 1,000 MG SOFTGEL) 1 Each Capsule, 2 EACH PO QDAY, CAPSULE 07/30/17 Losartan Potassium (LOSARTAN POTASSIUM) 50 Mg Tablet, 50 MG PO QDAY 07/30/17 Aspirin (ASPIR 81) 81 Mg Tablet.dr, 1 TAB PO QDAY, TAB 11/09/16 Nitroglycerin (NITROGLYCERIN) 0.4 Mg Tab.subl, 1 TAB SL Q5MIN Y for PAIN Max 3 doses. Call 911 if pain is not relieved. 11/09/16 Clopidogrel Bisulfate (CLOPIDOGREL) 75 Mg Tablet, 1 TAB PO QDAY, TAB 11/09/16 Cyanocobalamin (Vitamin B-12) (Vitamin B12) 2,500 Mcg Tablet, 1 TAB PO DAILY 02/22/16 Guaifenesin (MUCINEX) 600 Mg Tablet.er, PO PRN 04/15/15 Calcium Carbonate (Calcium) 600 Mg Tablet, 1 TAB PO DAILY, 0 Refills 08/11/10 Multivitamins W-Minerals (Multiple Vitamin) 1 Tab Tablet, 1 TAB PO DAILY, 0 Refills 08/11/10 Discontinued Reported Medications Ranitidine Hcl (ZANTAC) 150 Mg Tablet, 150 MG PO BID, TAB 01/10/17 Amlodipine Besylate (AMLODIPINE BESYLATE) 5 Mg Tablet, 1 TAB PO QDAY, TAB 11/09/16 Discontinued Scripts Pantoprazole Sodium (PANTOPRAZOLE SODIUM) 40 Mg Tablet.dr, 40 MG PO QDAY, #30 TAB.SR Prov:JANNET SHULTZ HAND EXPANSION ENVELOPE MAKER 04/30/17 Guaifenesin (TUSSIN) 100 Mg/5 Ml Liquid, 100 MG PO Q4-6H, #200 ML Prov:ISABEL MOYA MD 04/09/17 Diet: Regular Activity: As Tolerated Special Instructions: may shower may use port call [phone] if any problems FRANCIE CORNEJO MD Jul 31, 2017 11:20
[2017-07-31 12:07] VITALS: BP 133/60
[2017-07-31 12:15] VITALS: BP 126/62
[2017-07-31 12:19] VITALS: BP 133/71
[2017-07-31 12:21] VITALS: BP 147/74
[2017-07-31 12:45] VITALS: BP 136/72
--- NOTE | 2017-07-31 13:01 | RADIOLOGY IMAGING REPORT ---
FACILITY: [facility] PATIENT NAME: Mala Villela : 1935 MR: [id number] V: [id number] EXAM DATE: ORDERING PHYSICIAN: FRANCIE CORNEJO TECHNOLOGIST: Location: [facility] Patient: Mala Villela : 1935 Visit/Account:[id number] Date of Sevice: 07/31/2017 Exam type: C-ARM FLUORO PORT/CATH History: CHEMOTHERAPY POWER PORT PLACEMENT Comparison: Chest x-ray 04/30/2017. Findings: Fluoroscopy was used for the purposes of a chemotherapy port placement. 5.6 seconds of fluoroscopy t sridhar was used for total DAP of 0.68609 mGy/m2. The provided images demonstrate a right-sided chemotherapy port with the tip overlying the cavoatrial junction. IMPRESSION: 1. Fluoroscopy was used for the purposes of chemotherapy port placement. Report Dictated By: Yordy Nagy MD at 07/31/2017 12:55 PM Report E-Signed By: Yordy Nagy MD at 07/31/2017 12:56 PM WSN:ASHLEY
[2017-07-31] MEDS ORDERED: APAP/HYDROCODONE 325/5 TAB ONE (13:25)
--- NOTE | 2017-07-31 15:51 | HISTORY AND PHYSICAL ---
DATE OF ADMISSION: July 31, 2017 CHIEF COMPLAINT Myelodysplasia. HISTORY OF PRESENT ILLNESS This is an 82-year-old female with atherosclerotic coronary heart disease with a stent in place. She has COPD, and she is on oxygen. She has diabetes mellitus, and she has a myelodysplasia. She has poor peripheral venous access, and she needs a port placement for repeated venous access for treatment. ALLERGIES: She has an allergy to LATEX GLOVES. CURRENT MEDICATIONS * Aspirin. * Calcium. * Vitamin B12. * Folic acid. * Levothyroxine. * Linzess. * Losartan. * Mucinex. * Multivitamin. * Nitroglycerin p.r.n. * Oxygen. * Plavix. PAST MEDICAL HISTORY/OPERATIONS She has had a cholecystectomy and colonoscopy. REVIEW OF SYSTEMS Significant for the history of diabetes, atherosclerotic coronary heart disease , COPD, and the myeloproliferative disorder. PHYSICAL EXAMINATION An 82-year-old female in no acute distress. IMPRESSION Myelodysplasia. PLAN Port placement. We discussed the procedure, complications, and recovery time. She seemed to understand and wished to proceed. GEETA
--- NOTE | 2017-07-31 19:11 | OPERATIVE REPORT 1 ---
EVENT DATE: July 31, 2017 SURGEON: Chandu Miranda MD ANESTHESIOLOGIST: Aakash Espinal MD ANESTHESIA: General. PREOPERATIVE DIAGNOSIS Myelodysplasia. POSTOPERATIVE DIAGNOSIS Myelodysplasia. PROCEDURE PERFORMED PowerPort placement. DESCRIPTION OF PROCEDURE The patient was placed in the supine position and general anesthetic. Her right neck and chest were prepped and draped in the sterile fashion. We identified the internal jugular vein with the ultrasound and used that to guide the needle into position. Good blood return was obtained. Guidewire was passed. Fluoroscopy was used to show the guidewire in position in the superior vena cava. We then made an incision on the anterior chest wall and created a pocket for the port. We tunneled the catheter from the chest site through to the neck site. We passed the dilator introducer sheath over the guidewire. We removed the guidewire and dilator. We passed the catheter through the sheath. Sheath was removed. Catheter was positioned using fluoroscopy. It was cut to the appropriate length, attached to the port. The port was sutured down with 3- 0 nylon. It was aspirated and flushed with saline and heparin. The subcutaneous tissue was reapproximated with 4-0 Maxon. The skin was closed with interrupted 4-0 Maxon, and Dermabond was applied. MTDD
== END 2017-07-31 12:08 | disposition home or self-care (01) ==
LOC: OR 01:30
PROVIDERS: ATTEND Surgery
DX: D46.9 Myelodysplastic syndrome, unspecified (principal); I25.10 Atherosclerotic heart disease of native coronary artery without angina pectoris; E11.9 Type 2 diabetes mellitus without complications; I10 Essential (primary) hypertension; G47.33 Obstructive sleep apnea (adult) (pediatric); J44.9 Chronic obstructive pulmonary disease, unspecified; E66.9 Obesity, unspecified; Z95.5 Presence of coronary angioplasty implant and graft; Z90.49 Acquired absence of other specified parts of digestive tract; Z99.81 Dependence on supplemental oxygen; Z91.040 Latex allergy status; Z86.73 Personal history of transient ischemic attack (TIA), and cerebral infarction without residual deficits; Z88.8 Allergy status to other drugs, medicaments and biological substances; Z68.30 Body mass index [BMI] 30.0-30.9, adult
CPT/HCPCS: 36561; 77001; A9270; J0330; J1100; J1642; J2405; J2704; J2795; J3490; J0690

== ENCOUNTER 2017-10-03 09:00 | Outpatient (RCR) | payer MEDICARE, OTHER ==
[2016-12-21 07:58] VITALS: BMI 31.6
[2017-07-11 13:25] VITALS: BP 125/51
[2017-07-12 09:57] VITALS: BP 129/52
[2017-07-12 10:11] VITALS: BP 129/52
[2017-07-12 10:25] VITALS: BP 112/40
[2017-07-12 11:45] VITALS: BP 109/45
[2017-07-18 13:05] VITALS: BP 128/62
[2017-07-19 13:53] VITALS: BP 139/72
[2017-07-19 14:10] VITALS: BP 119/48
[2017-07-19] MEDS: NS(*) 0.9% 500 ML BAG 500 ML IV PRN ×2 (14:12→14:13)
[2017-07-19] MEDS: LIDOCAINE/SOD BICARB 8.4% SYR ID PRN (14:13)
[2017-07-19 15:27] VITALS: BP 121/56
[2017-07-25 08:43] VITALS: BP 155/66
[2017-08-01 08:58] VITALS: BP 145/67
[2017-08-08 08:43] VITALS: BP 145/64
[2017-08-15 08:54] VITALS: BP 141/109
[2017-08-15] MEDS: LIDOCAINE/SOD BICARB 8.4% SYR ID PRN (11:27)
[2017-08-15] MEDS: NS(*) 0.9% 500 ML BAG 500 ML IV PRN (11:28)
[2017-08-15 16:34] VITALS: BP 108/66
[2017-08-15 16:49] VITALS: BP 118/84
[2017-08-15 18:28] VITALS: BP 118/60
[2017-08-22 08:57] VITALS: BP 131/56
[2017-08-22] MEDS: LIDOCAINE/SOD BICARB 8.4% SYR ID PRN (08:59)
[2017-08-22] MEDS: HEPARIN FLSH (PORT) 500 UN/5ML IVP PRN (09:13)
[2017-08-29] MEDS: LIDOCAINE/SOD BICARB 8.4% SYR ID PRN (10:17)
[2017-08-29] MEDS: HEPARIN FLSH (PORT) 500 UN/5ML IVP PRN (10:17)
[2017-08-29 10:28] VITALS: BP 126/55
[2017-09-05 10:30] LABS: PLATELET COUNT, AUTOMATED 198 K/uL (150-450)
[2017-09-05] MEDS: LIDOCAINE/SOD BICARB 8.4% SYR ID PRN (11:09)
[2017-09-05] MEDS: HEPARIN FLSH (PORT) 500 UN/5ML IVP PRN (11:09)
[2017-09-12 09:30] LABS: PLATELET COUNT, AUTOMATED 209 K/uL (150-450)
[2017-09-12 09:32] VITALS: BP 124/86
[2017-09-12] MEDS: HEPARIN FLSH (PORT) 500 UN/5ML IVP PRN (10:12)
[2017-09-12] MEDS: LIDOCAINE/SOD BICARB 8.4% SYR ID PRN (10:12)
[2017-09-19] MEDS: LIDOCAINE/SOD BICARB 8.4% SYR ID PRN (09:10)
[2017-09-19] MEDS: HEPARIN FLSH (PORT) 500 UN/5ML IVP PRN (09:10)
[2017-09-19 09:11] VITALS: BP 125/64
[2017-09-19 09:30] LABS: PLATELET COUNT, AUTOMATED 213 K/uL (150-450)
[2017-09-26 09:20] VITALS: BP 139/57
[2017-09-26 09:36] LABS: PLATELET COUNT, AUTOMATED 224 K/uL (150-450)
[2017-09-26 12:45] VITALS: BP 118/52
[2017-09-26] MEDS: NS(*) 0.9% 500 ML BAG 500 ML IV PRN (14:03)
[2017-09-26] MEDS: LIDOCAINE/SOD BICARB 8.4% SYR ID PRN (14:03)
[2017-09-26 16:05] VITALS: BP 120/56
[2017-09-26 16:24] VITALS: BP 125/58
[2017-09-26 17:11] VITALS: BP 128/62
[2017-09-26 17:55] VITALS: BP 121/60
[2017-09-26] MEDS: HEPARIN FLSH (PORT) 500 UN/5ML IVP PRN (17:57)
--- NOTE | 2017-09-27 16:47 | ONCOLOGY FOLLOW UP NOTE ---
EVENT DATE: September 26, 2017 REASON FOR FOLLOWUP 1. Myelodysplastic syndrome, chronic anemia. 2. Fatigue, dizziness. 3. Hereditary hemochromatosis heterozygosity. CHIEF COMPLAINT Fatigue. INTERIM HISTORY Mala returns to clinic for a follow-up visit today. She reports no new symptoms, but she continues to be pretty tired. She has had a recent fall at home, as well. She reports entertaining about eight guests, when she fell in the kitchen, landing on her knees. She had no immediate obvious injury, and she did not hit her head. She reports that she is planning on visiting her chiropractor soon. Also, since our last visit, she has undergone port placement due to concern for poor intravenous access and the need for ongoing transfusion support. REVIEW OF SYSTEMS Otherwise negative, and all systems were reviewed. PAST MEDICAL HISTORY 1. Hemochromatosis carrier. 2. 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 3. Myelodysplastic syndrome. HEMATOLOGY/ONCOLOGY HISTORY Myelodysplastic syndrome diagnosed December 25, 2012. Bone marrow biopsy performed at that time revealed findings consistent with low grade myelodysplastic syndrome, mildly hypercellular marrow for age with trilineage dysplasia, adequate storage iron and no evidence of lymphoma or plasma cell dyscrasia. Since that time she has been receiving transfusions periodically ( driven by symptoms) as well as Desferal. SOCIAL HISTORY The patient is a nonsmoker and nondrinker. There is no history of illicit drug use. She lives here in [place]. FAMILY HISTORY There is a history of hypertension, as well as history of leukemia in her twin sister. Her father had prostate cancer at age forty-nine and her mother had history of stroke. MEDICATIONS 1. Pantoprazole. 2. Guaifenesin. 3. Echinacea. 4. Zantac. 5. Aspirin. 6. Nitroglycerin. 7. Amlodipine. 8. Clopidogrel. 9. Folic acid. 10. Levothyroxine. 11. Linzess. 12. Vitamin B12. 13. Calcium. 14. Multivitamin. ALLERGIES 1. PSEUDOEPHEDRINE. 2. CHLORPHENIRAMINE. 3. MECLIZINE. VITAL SIGNS Temperature is 97.6, blood pressure 118/52, heart rate is 71, respirations 18, oxygen saturation is 98% on 3L. PHYSICAL EXAMINATION GENERAL: Patient is alert and oriented times three, in no apparent distress, sitting in the infusion chair. HEENT: Exam reveals anicteric sclerae. SKIN: Exam reveals generalized pallor, but no concerning rash or lesions. NEUROLOGIC: Exam is grossly nonfocal, although her memory is impaired. EXTREMITIES: Exam reveals no edema, clubbing or cyanosis. LABORATORY STUDIES Reviewed per the [facility] record. ASSESSMENT AND PLAN Myelodysplastic syndrome, hereditary hemochromatosis heterozygosity. Mala continues to do pretty well, but she expectedly remains transfusion dependent. She will continue with transfusion support and I will make no changes in her current transfusion parameters today. She does seem to do better after her transfusions, but she remains with chronic fatigue and some shortness of breath. She remains oxygen dependent. She is receiving Desferal, as well, with her transfusions. This will continue, especially given her history of hereditary hemochromatosis, and risk for iron overload with ongoing packed red blood cell transfusions. We will plan to recheck a ferritin in the future, as well. I will plan to see Mala back for followup in three months, or sooner if there are questions or concerns. GEETA
[~2017-10-03 09:00] MED LIST changes: +ALTEPLASE RECOMB 2 MG VIAL IVP PRN; +DEXTROSE 5%(*) 100 ML BAG 100 ML IVPB PRN; +LIDOCAINE/SOD BICARB 8.4% SYR ID PRN; -METF-410 PO; +METF-411 PO; -METF-420 PO; +METF-421 PO; +NS(*) 0.9% 100 ML BAG 100 ML IVPB PRN; -RANI-324 PO; +RANI-366 PO; +SODIUM CHLORIDE 0.9% IVPB ONE; +WATER FOR INJ,STERILE 20 ML IVP PRN; +[UNRECOGNIZED DRUG - OTHER] IVPB ONE; +[UNRECOGNIZED DRUG - OTHER] IVPB ONE
[2017-10-03] MEDS: LIDOCAINE/SOD BICARB 8.4% SYR ID PRN (09:36)
[2017-10-03 09:37] VITALS: BP 125/54
[2017-10-03] MEDS: HEPARIN FLSH (PORT) 500 UN/5ML IVP PRN (09:49)
== END 2017-10-08 ==
LOC: SPU 09:00
PROVIDERS: ATTEND Internal Medicine Medical Oncology
DX: D46.9 Myelodysplastic syndrome, unspecified (principal); D53.9 Nutritional anemia, unspecified; Z28.9 Immunization not carried out for unspecified reason
CPT/HCPCS: 36415; 36430; 36591; 82728; 83540; 83550; 83615; 85025; 85027; 86644; 86850; 86900; 86901; 86920; 96365; 96366; J0895; J1642; J7040; J7050; P9016; P9040; 82040; 82247; 82310; 82374; 82435; 82565; 82947; 84075; 84132; 84155; 84295; 84450; 84460; 84520

== ENCOUNTER → 2017-11-06 | Outpatient (CLI) | payer MEDICARE, OTHER ==
[2016-12-21 07:58] VITALS: BMI 31.6
[~2017-11-06] MED LIST changes: -ALTEPLASE RECOMB 2 MG VIAL IVP PRN; -DEXTROSE 5%(*) 100 ML BAG 100 ML IVPB PRN; +IBUP-136 PO; -IBUP200C71 PO; -LIDOCAINE/SOD BICARB 8.4% SYR ID PRN; -NS(*) 0.9% 100 ML BAG 100 ML IVPB PRN; -ROSU10TA13 PO; +ROSU10TA5 PO; -SODIUM CHLORIDE 0.9% IVPB ONE; -WATER FOR INJ,STERILE 20 ML IVP PRN; -[UNRECOGNIZED DRUG - OTHER] IVPB ONE; -[UNRECOGNIZED DRUG - OTHER] IVPB ONE
== END ==
LOC: SPU 08:14
PROVIDERS: ATTEND Emergency Medicine
DX: Z76.89 Persons encountering health services in other specified circumstances (principal)

== ENCOUNTER → 2017-11-07 | Outpatient (CLI) | payer MEDICARE, OTHER ==
[2016-12-21 07:58] VITALS: BMI 31.6
[~2017-11-07] MED LIST changes: +ALTEPLASE RECOMB 2 MG VIAL IVP PRN; +DEXTROSE 5%(*) 100 ML BAG 100 ML IVPB PRN; +HEPARIN FLSH (PORT) 500 UN/5ML IVP PRN; +LIDOCAINE/SOD BICARB 8.4% SYR ID PRN; +NS(*) 0.9% 100 ML BAG 100 ML IVPB PRN; +NS(*) 0.9% 500 ML BAG 500 ML IV PRN; +WATER FOR INJ,STERILE 20 ML IVP PRN
[2017-11-07 09:07] VITALS: BP 151/66
== END ==
LOC: SPU 07:33
PROVIDERS: ATTEND Emergency Medicine
DX: E11.9 Type 2 diabetes mellitus without complications (principal); E03.9 Hypothyroidism, unspecified
CPT/HCPCS: 36591; J1642

== ENCOUNTER 2017-12-12 12:19 | Emergency (ER) | payer MEDICARE, OTHER ==
[2016-12-21 07:58] VITALS: BMI 31.6
[~2017-12-12 12:19] MED LIST changes: -ALTEPLASE RECOMB 2 MG VIAL IVP PRN; +ATOR10TA65 PO; +CORED LEFT EAR; -DEXTROSE 5%(*) 100 ML BAG 100 ML IVPB PRN; -GEMF600T91 PO; +GEMF600T92 PO; -HEPARIN FLSH (PORT) 500 UN/5ML IVP PRN; -LIDOCAINE/SOD BICARB 8.4% SYR ID PRN; -NS(*) 0.9% 100 ML BAG 100 ML IVPB PRN; -NS(*) 0.9% 500 ML BAG 500 ML IV PRN; -WATER FOR INJ,STERILE 20 ML IVP PRN
[2017-12-12 12:24] VITALS: BP 142/68
--- NOTE | 2017-12-12 12:27 | ER Report ---
History and Physical Time Seen By MD: 12:26 HPI/ROS CHIEF COMPLAINT: Bleeding from port HISTORY OF PRESENT ILLNESS: 82-year-old female who is currently chemotherapy through a port comes emergency room today with active bleeding from her port site she had recently had chemotherapy earlier in the day went home and noticed some pretty brisk bleeding from the port site attempted direct pressure with no success arrives the emergency department patient has no other complaints REVIEW OF SYSTEMS: Respiratory: No cough, no dyspnea. Cardiovascular: No chest pain, no palpitations. Gastrointestinal: No vomiting, no abdominal pain. Musculoskeletal: No back pain. Remainder of the 14 system rev: Yes Allergies: Coded Allergies: meclizine (Verified Allergy, Intermediate, Dizziness, 12/20/16) chlorpheniramine (Verified Allergy, Unknown, 12/20/16) pseudoephedrine (Verified Allergy, Unknown, 12/20/16) Home Meds Active Scripts Neomycin/Polymyxin B Sulf/Hc (Cortisporin [DSC] EAR SOLN) 10 Ml Solution, 4 GTT LEFT EAR TID for 7 Days, #1 BOT 0 Refills Prov:SIRENA YANEZ APRN ACADEMIC MANAGER-C 11/23/17 Glimepiride (GLIMEPIRIDE) 1 Mg Tablet, 1 MG PO QDAY, #90 TAB 3 Refills Prov:ISABEL MOYA MD 11/21/17 Folic Acid (FOLIC ACID) 1 Mg Tablet, 1 MG PO QDAY for low hgb, #90 TAB 3 Refills Prov:ISABEL MOYA MD 09/13/17 Levothyroxine Sodium (LEVOTHYROXINE SODIUM) 75 Mcg Tablet, 1 TAB PO QDAY, #90 TAB 4 Refills Prov:ISABEL MOYA MD 08/30/17 Linaclotide (LINZESS) 145 Mcg Capsule, 1 CAP PO DAILY, #90 CAPSULE 3 Refills Prov:ISABEL MOYA MD 06/29/17 Reported Medications Atorvastatin Calcium (ATORVASTATIN CALCIUM) 10 Mg Tablet, 1 TAB PO QDAY, TAB 11/26/17 Saline (AYR SALINE NASAL GEL) 14.1 Gm Gel, 14.1 GM NA DAILY, GEL 07/30/17 [place]-3 Fatty Acids/Fish Oil (OMEGA 3 1,000 MG SOFTGEL) 1 Each Capsule, 2 EACH PO QDAY, CAPSULE 07/30/17 Aspirin (ASPIR 81) 81 Mg Tablet.dr, 1 TAB PO QDAY, TAB 11/09/16 Nitroglycerin (NITROGLYCERIN) 0.4 Mg Tab.subl, 1 TAB SL Q5MIN Y for PAIN Max 3 doses. Call 911 if pain is not relieved. 11/09/16 Clopidogrel Bisulfate (CLOPIDOGREL) 75 Mg Tablet, 1 TAB PO QDAY, TAB 11/09/16 Cyanocobalamin (Vitamin B-12) (Vitamin B12) 2,500 Mcg Tablet, 1 TAB PO DAILY 02/22/16 Guaifenesin (MUCINEX) 600 Mg Tablet.er, PO PRN 04/15/15 Calcium Carbonate (Calcium) 600 Mg Tablet, 1 TAB PO DAILY, 0 Refills 08/11/10 Multivitamins W-Minerals (Multiple Vitamin) 1 Tab Tablet, 1 TAB PO DAILY, 0 Refills 08/11/10 Reviewed Nurses Notes: Yes Old Medical Records Reviewed: Yes Hx Smoking: No Smoking Status: Never Smoker Exposure to Second Hand Smoke?: Yes (ALL HER LIFE.) Hx Alcohol Use: No Constitutional Vital Sign - Last 24 Hours 12/12/17 12:24 Temp 97.7 Pulse 99 B/P (MAP) 142/68 (92) Pulse Ox 99 O2 Delivery Nasal Cannula O2 Flow Rate 3 Physical Exam General appearance: Alert no distress. Respiratory: Chest is non tender, lungs are clear to auscultation. Cardiac: Regular rate and rhythm [ ] Reported evaluation demonstrates some mild bleeding from the port site otherwise unremarkable DIFFERENTIAL DIAGNOSIS: After history and physical exam differential diagnosis was considered for bleeding from port Medical Decision Making Data Points Laboratory Hematology Test 06/17/15 00:00 Neutrophils # 2.6 th/mm3 Hematocrit 9.0 g/dl Hemoglobin 27.4 g/dl Platelet Count 306 th/mm3 White Blood Count 4.2 th/mm3 Albumin 4.7 g/dl Alkaline Phosphatase 77 IU/L Alanine Aminotransferase (ALT/SGPT) 25 u/L Aspartate Amino Transf (AST/SGOT) 19 gloria/L Blood Urea Nitrogen 16 mg/dl Calcium Level 9.5 mg/dl Chloride Level 96 mmol/L Carbon Dioxide Level 26 mmol/L Creatinine 0.72 mg/dl Glucose Level 86 mg/dl Potassium Level 4.1 mmol/L Sodium Level 138 mmol/L Total Protein 6.4 g/dl Total Bilirubin 0.9 mg/dl Chemistry Test 06/17/15 00:00 Neutrophils # 2.6 th/mm3 Hematocrit 9.0 g/dl Hemoglobin 27.4 g/dl Platelet Count 306 th/mm3 White Blood Count 4.2 th/mm3 Albumin 4.7 g/dl Alkaline Phosphatase 77 IU/L Alanine Aminotransferase (ALT/SGPT) 25 u/L Aspartate Amino Transf (AST/SGOT) 19 gloria/L Blood Urea Nitrogen 16 mg/dl Calcium Level 9.5 mg/dl Chloride Level 96 mmol/L Carbon Dioxide Level 26 mmol/L Creatinine 0.72 mg/dl Glucose Level 86 mg/dl Potassium Level 4.1 mmol/L Sodium Level 138 mmol/L Total Protein 6.4 g/dl Total Bilirubin 0.9 mg/dl ED Course/Re-evaluation ED Course Clinical course medical decision-making 82-year-old female is having port bleeding direct pressure and ice was placed evaluated by Dir. of oncology bleeding has stopped hemostasis has been obtained patient be discharged Decision to Disposition Date: Dec 12, 2017 Decision to Disposition Time: 12:53 Depart Departure Latest Vital Signs Vital Signs Date Time Temp Pulse Resp B/P (MAP) Pulse Ox O2 Delivery O2 Flow Rate FiO2 12/12/17 12:24 97.7 99 142/68 (92) 99 Nasal Cannula 3 Impression: Primary Impression: Bleeding Condition: Improved Disposition: HOME OR SELF-CARE Referrals: ISABEL MOYA MD (PCP) 10 Days Patient Instructions: Bleeding Disorders (DC) FRANKO BAKER MD Dec 12, 2017 12:27
== END 2017-12-12 13:02 | disposition home or self-care (01) ==
LOC: ER 12:27
DX: T85.9XXA Unspecified complication of internal prosthetic device, implant and graft, initial encounter (principal)
CPT/HCPCS: 99281

== ENCOUNTER 2018-02-07 15:47 | Emergency (ER) | payer MEDICARE, OTHER ==
[2016-12-21 07:58] VITALS: Wt 70.3 kg
[~2018-02-07 15:47] MED LIST changes: -APIX5TAB PO; -BISA-229 PO; -CEPH500T7 PO; -LISI5TAB25 PO; -POLY500P2 PO
--- NOTE | 2018-02-07 16:10 | ER Report ---
History and Physical Time Seen By MD: 16:10 Hx. of Stated Complaint: SENT FROM PMD, INCREASED SOB X1 WEEK SINCE HAVING TOOTH PULLED AND CONSTIPATION. (YI ALY MD) HPI/ROS HPI per Dr Aly (GILBERTO LYON DO) Allergies: Coded Allergies: meclizine (Verified Allergy, Intermediate, Dizziness, 02/14/18) chlorpheniramine (Verified Allergy, Unknown, 02/14/18) pseudoephedrine (Verified Allergy, Unknown, 02/14/18) Home Meds Active Scripts Atorvastatin Calcium (ATORVASTATIN CALCIUM) 10 Mg Tablet, 1 TAB PO QDAY, #30 TAB 0 Refills Prov:LUCY CURTIS MD 02/13/18 Glimepiride (GLIMEPIRIDE) 2 Mg Tablet, 3 TAB PO QDAY, #21 TAB 0 Refills Prov:LUCY CURTIS MD 01/11/18 Folic Acid (FOLIC ACID) 1 Mg Tablet, 1 MG PO QDAY for low hgb, #90 TAB 3 Refills Prov:LUCY CURTIS MD 09/13/17 Levothyroxine Sodium (LEVOTHYROXINE SODIUM) 75 Mcg Tablet, 1 TAB PO QDAY, #90 TAB 4 Refills Prov:LUCY CURTIS MD 08/30/17 Linaclotide (LINZESS) 145 Mcg Capsule, 1 CAP PO DAILY, #90 CAPSULE 3 Refills Prov:LUCY CURTIS MD 06/29/17 Reported Medications Polyethylene Glycol 8000 (POLYETHYLENE GLYCOL) 500 Gm Powder, 17 GM PO DAILY 02/14/18 Bisacodyl (DULCOLAX) 5 Mg Tablet.dr, 10 MG PO DAILY 02/14/18 Apixaban (ELIQUIS) 5 Mg Tablet, 10 MG PO BID 02/14/18 Lisinopril (LISINOPRIL) 5 Mg Tablet, 5 MG PO DAILY, TAB 02/14/18 Saline (AYR SALINE NASAL GEL) 14.1 Gm Gel, 14.1 GM NA DAILY, GEL 07/30/17 [place]-3 Fatty Acids/Fish Oil (OMEGA 3 1,000 MG SOFTGEL) 1 Each Capsule, 2 EACH PO QDAY, CAPSULE 07/30/17 Nitroglycerin (NITROGLYCERIN) 0.4 Mg Tab.subl, 1 TAB SL Q5MIN PRN for PAIN Max 3 doses. Call 911 if pain is not relieved. 11/09/16 Cyanocobalamin (Vitamin B-12) (Vitamin B12) 2,500 Mcg Tablet, 1 TAB PO DAILY 02/22/16 Guaifenesin (MUCINEX) 600 Mg Tablet.er, PO PRN 04/15/15 Calcium Carbonate (Calcium) 600 Mg Tablet, 1 TAB PO DAILY, 0 Refills 08/11/10 Multivitamins W-Minerals (Multiple Vitamin) 1 Tab Tablet, 1 TAB PO DAILY, 0 Refills 08/11/10 Discontinued Reported Medications Cephalexin 500 Mg Tab (KEFLEX 500 MG TAB) 500 Mg Tablet, 500 MG PO Q6H, #28 TAB 02/14/18 Furosemide (FUROSEMIDE) 20 Mg Tablet, 1 TAB PO DAILY, TAB 02/14/18 Aspirin (ASPIR 81) 81 Mg Tablet.dr, 1 TAB PO QDAY, TAB 11/09/16 Clopidogrel Bisulfate (CLOPIDOGREL) 75 Mg Tablet, 1 TAB PO QDAY, TAB 11/09/16 Discontinued Scripts Glimepiride (GLIMEPIRIDE) 2 Mg Tablet, 3 TAB PO QDAY, #15 TAB 0 Refills Prov:SIRENA YANEZ APRN ANIMAL ANATOMY TEACHER-C 01/18/18 Apixaban (ELIQUIS) 5 Mg Tablet, 5 MG PO BID, #180 TAB 3 Refills Prov:LUCY CURTIS MD 02/13/18 Glimepiride (GLIMEPIRIDE) 2 Mg Tablet, 3 TAB PO QDAY, #90 TAB 0 Refills Prov:LUCY CURTIS MD 01/11/18 Neomycin/Polymyxin B Sulf/Hc (Cortisporin [DSC] EAR SOLN) 10 Ml Solution, 4 GTT LEFT EAR TID for 7 Days, #1 BOT 0 Refills Prov:SIRENA YANEZ APRN ANIMAL ANATOMY TEACHER-C 11/23/17 Past Medical/Surgical History Mala is an [age] yr old lady who is here for a followup of labs. Hba1c has gone up from 5.6 in 05/17 to 8.4 in 11/14 after stopping glimepiride 1 mg and in spite of repeated transfusions. BP is excellent today off all antihypertensives. She does c/o left ear ache. She os on CPAP at night and nocturnal oxygen is excellent as per patient . Yesterday , oxygen saturation dropped and apparently when her respiratory company [employer] in , there was a block in the tubing. She has been breathing better since it was fixed. . Past Family Social History Reviewed Reviewed by: Dr. 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 ) Past Surgical History HEENT: Reports hx of: cataract extraction tonsillectomy Cardiovascular: Reports hx of: angioplasty (2 ROSALIND placed in RCA on 2017 followed by hemopericardium) Gastrointestinal: Reports hx of: cholecystectomy Gynecologic: Reports hx of: tubal ligation (GILBERTO LYON DO) Reviewed Nurses Notes: Yes Old Medical Records Reviewed: Yes (GILBERTO LYON DO) Hx Smoking: No Smoking Status: Never Smoker Exposure to Second Hand Smoke?: Yes (ALL HER LIFE.) Hx Substance Use Disorder: No Hx Alcohol Use: No (YI ALY MD) Constitutional (GILBERTO LYON DO) Physical Exam Vital signs stable, afebrile, Baseline O2 saturation normal on 3 L General Appearance: The patient is alert, has no immediate need for airway protection and no current signs of toxicity., Pale appearing, skin warm and dry Eyes: Pupils equal and round no injection. Respiratory: Chest is non tender, bibasilar rails with dullness at the bases, intact port noted on palpation of the right chest wall Cardiac: regular rate and rhythm, distant heart sounds Gastrointestinal: Abdomen is soft and non tender, no masses, bowel sounds normal. Musculoskeletal: Neck: Neck is supple and non tender. No JVD Extremities have full range of motion and are non tender. 1+ edema bilaterally, no calf tenderness Skin: No rashes or lesions. DIFFERENTIAL DIAGNOSIS: After history and physical exam differential diagnosis was considered for shortness of breath including but not limited to pulmonary infectious process, COPD, asthma, pulmonary embolus and congestive heart failure. (GILBERTO LYON DO) Medical Decision Making Data Points Laboratory Hematology Test 06/17/15 00:00 02/07/18 17:00 02/07/18 17:05 02/07/18 20:40 Neutrophils # 2.6 th/mm3 Hematocrit 9.0 g/dl Hemoglobin 27.4 g/dl Platelet Count 306 th/mm3 White Blood Count 4.2 th/mm3 Albumin 4.7 g/dl 3.4 g/dl (3.5-5.0) Alkaline Phosphatase 77 IU/L 124 U/L (0-126) Alanine Aminotransferase (ALT/SGPT) 25 u/L 120 U/L (0-56) Aspartate Amino Transf (AST/SGOT) 19 gloria/L 63 U/L (0-35) Blood Urea Nitrogen 16 mg/dl 17 mg/dl (7-18) Calcium Level 9.5 mg/dl 9.1 mg/dl (8.4-10.2) Chloride Level 96 mmol/L 93 mmol/L (98-107) Carbon Dioxide Level 26 mmol/L 28 mmol/L (22-31) Creatinine 0.72 mg/dl 0.70 mg/dl (0.52-1.04) Glucose Level 86 mg/dl Potassium Level 4.1 mmol/L 4.2 mmol/L (3.5-5.0) Sodium Level 138 mmol/L 130 mmol/L (137-145) Total Protein 6.4 g/dl 5.4 g/dl (6.3-8.2) Total Bilirubin 0.9 mg/dl 2.8 mg/dl (0.2-1.3) Red Blood Count 3.28 M/uL (4.17-5.56) Mean Corpuscular Volume 93.5 fL (80.0-96.0) Mean Corpuscular Hemoglobin 30.2 pg (26.0-33.0) Mean Corpuscular Hemoglobin Concent 32.2 g/dL (32.0-36.0) Red Cell Distribution Width 18.9 % (11.5-14.5) Mean Platelet Volume 10.2 fL (7.2-11.1) Neutrophils (%) (Auto) 71.5 % (39.4-72.5) Lymphocytes (%) (Auto) 16.6 % (17.6-49.6) Monocytes (%) (Auto) 9.8 % (4.1-12.4) Eosinophils (%) (Auto) 0.1 % (0.4-6.7) Basophils (%) (Auto) 2.0 % (0.3-1.4) Nucleated RBC Relative Count (auto) 0.1 /100WBC Neutrophils # (Auto) 3.0 K/uL (2.0-7.4) Lymphocytes # (Auto) 0.7 K/uL (1.3-3.6) Monocytes # (Auto) 0.4 K/uL (0.3-1.0) Eosinophils # (Auto) 0.0 K/uL (0.0-0.5) Basophils # (Auto) 0.1 K/uL (0.0-0.1) Nucleated RBC Absolute Count (auto) 0.00 K/uL Peripheral Blood Smear No Y/N Prothrombin Time 17.3 seconds (12.0-14.4) Prothromb Time International Ratio 1.40 Activated Partial Thromboplast Time 58 seconds (23-35) Glomerular Filtration Rate Calc > 60.0 Random Glucose 369 mg/dl (75-110) Troponin I 0.104 ng/ml B-Type Natriuretic Peptide 1250 pg/ml (0-100) Whole Blood Glucose 325 mg/DL (75-110) Chemistry Test 06/17/15 00:00 02/07/18 17:00 02/07/18 17:05 02/07/18 20:40 Neutrophils # 2.6 th/mm3 Hematocrit 9.0 g/dl 30.7 % (34.0-47.0) Hemoglobin 27.4 g/dl 9.9 g/dL (12.0-16.0) Platelet Count 306 th/mm3 203 K/uL (150-450) White Blood Count 4.2 th/mm3 4.3 k/uL (4.5-11.0) Albumin 4.7 g/dl 3.4 g/dl (3.5-5.0) Alkaline Phosphatase 77 IU/L 124 U/L (0-126) Alanine Aminotransferase (ALT/SGPT) 25 u/L 120 U/L (0-56) Aspartate Amino Transf (AST/SGOT) 19 gloria/L 63 U/L (0-35) Blood Urea Nitrogen 16 mg/dl Calcium Level 9.5 mg/dl 9.1 mg/dl (8.4-10.2) Chloride Level 96 mmol/L Carbon Dioxide Level 26 mmol/L Creatinine 0.72 mg/dl Glucose Level 86 mg/dl Potassium Level 4.1 mmol/L Sodium Level 138 mmol/L Total Protein 6.4 g/dl 5.4 g/dl (6.3-8.2) Total Bilirubin 0.9 mg/dl 2.8 mg/dl (0.2-1.3) Red Blood Count 3.28 M/uL (4.17-5.56) Mean Corpuscular Volume 93.5 fL (80.0-96.0) Mean Corpuscular Hemoglobin 30.2 pg (26.0-33.0) Mean Corpuscular Hemoglobin Concent 32.2 g/dL (32.0-36.0) Red Cell Distribution Width 18.9 % (11.5-14.5) Mean Platelet Volume 10.2 fL (7.2-11.1) Neutrophils (%) (Auto) 71.5 % (39.4-72.5) Lymphocytes (%) (Auto) 16.6 % (17.6-49.6) Monocytes (%) (Auto) 9.8 % (4.1-12.4) Eosinophils (%) (Auto) 0.1 % (0.4-6.7) Basophils (%) (Auto) 2.0 % (0.3-1.4) Nucleated RBC Relative Count (auto) 0.1 /100WBC Neutrophils # (Auto) 3.0 K/uL (2.0-7.4) Lymphocytes # (Auto) 0.7 K/uL (1.3-3.6) Monocytes # (Auto) 0.4 K/uL (0.3-1.0) Eosinophils # (Auto) 0.0 K/uL (0.0-0.5) Basophils # (Auto) 0.1 K/uL (0.0-0.1) Nucleated RBC Absolute Count (auto) 0.00 K/uL Peripheral Blood Smear No Y/N Prothrombin Time 17.3 seconds (12.0-14.4) Prothromb Time International Ratio 1.40 Activated Partial Thromboplast Time 58 seconds (23-35) Glomerular Filtration Rate Calc > 60.0 Troponin I 0.104 ng/ml B-Type Natriuretic Peptide 1250 pg/ml (0-100) Whole Blood Glucose 325 mg/DL (75-110) Coagulation Test 02/07/18 17:00 Prothrombin Time 17.3 seconds Prothromb Time International Ratio 1.40 Activated Partial Thromboplast Time 58 seconds (GILBERTO LYON DO) EKG/Imaging Imaging Results: CT scan of the CTA pulmonary angiogram was obtained. The results of the study are CT angiogram chest with contrast Indication: Shortness of breath. Mild dysplasia. Comparison: None available. Technique: Axial CT images are obtained through the chest after administration of 75 mL Isovue 370 IV contrast. Reformatted coronal and sagittal images were reviewed as well as coronal MIP images. One of the following dose optimization techniques was utilized in the performance of this exam: automated exposure control; adjustment of the mA and/or kV according to the patient's size; or use of an iterative reconstruction technique. Specific details can be referenced in the facility's radiology CT exam operational policy. FINDINGS: No discrete pulmonary emboli are seen in the main pulmonary arteries or the segmental and subsegmental branches. The subsegmental branches of the right and left lower lobe pulmonary arteries and the posterior aspect show poor opacification and cannot exclude small emboli in the small vessels. Heart is mildly diffusely enlarged without pericardial effusion. The aorta shows mild atherosclerotic calcific changes without indication of aneurysm or dissection. The mediastinum and hilar regions show no enlarged lymph nodes with multiple small lymph nodes. No abnormal density seen mediastinum. Right Port-A-Cath in place with tip in SVC. Moderate bilateral pleural effusions with associated atelectasis. Lungs show some mild hazy interstitial changes which could be secondary to mild edema. No consolidations, pneumothorax or discrete nodule. Airways are clear. The bony structures show no acute fracture or aggressive bony lesions. Mild degenerative change seen spine. Chest wall shows no enlarged axillary lymph nodes or masses. Minimal ascites. Upper abdomen is otherwise unremarkable. IMPRESSION: 1. Discrete pulmonary emboli. The posterior subsegmental branches of the lower lobes bilaterally show possible small nonoccluding emboli however these are not well opacified. 2. Moderate bilateral pleural effusions associated atelectasis. 3. Mild cardiomegaly. There may be mild pulmonary edema present. The study was read by the radiologist. I viewed the images myself on the PACS system. (GILBERTO LYON DO) ED Course/Re-evaluation Clinical Indication for ER IV: Hydration, IV Access ED Course Care was assumed at shift change from Dr. Aly. Diagnostic CTA pulmonary angiogram was pending for shortness of breath. Patient at her baseline O2 need of 3 L with adequate saturations Patient was noted to have an elevated troponin and subtle EKG changes in numerous leads that appear to be new. Plain two-view chest x-ray shows bilateral pleural effusions and pulmonary edema. 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 She has chronic shortness of breath. Uses O2, 3 L in the daytime 4 L at night on CPAP. CTA pulmonary angiogram returns with bilateral nonobstructing discrete pulmonary emboli is in the lower lobes posteriorly, moderate pleural effusions with pulmonary edema. 02/07/2018 9:01:05 pm case discussed with Dr. Miller hospitalist on-call. He advises transfer to facility with higher level of care with specialty services availability. Patient has complex medical problems. Patient will likely need cardiology, heme ONC consultation. 02/07/2018 9:15:23 pm discussed with hospitalist at [facility] who accepts the patient for transfer to his facility. He advises a heparin drip be initiated. Decision to Disposition Date: Feb 07, 2018 Decision to Disposition Time: 20:49 Critical Care Time I spent a total of 60 minutes of critical care time in obtaining history, performing a physical exam, bedside monitoring of interventions, collecting and interpreting tests and discussion with consultants but not including time spent performing procedures. (GILBERTO LYON DO) Depart Departure Latest Vital Signs (GILBERTO LYON DO) Impression: Primary Impression: Pulmonary embolism Additional Impressions: Elevated troponin Congestive heart failure Myelodysplasia (myelodysplastic syndrome) Condition: Improved Disposition: XFER TO ACUTE [facility]ARE HOSPITAL Referrals: LUCY CURTIS MD (PCP) Problem Qualifiers Primary Impression: Pulmonary embolism Pulmonary embolism type: other Chronicity: acute Acute cor pulmonale presence: without acute cor pulmonale Qualified Codes: I26.99 - Other pulmonary embolism without acute cor pulmonale Additional Impressions: Congestive heart failure Heart failure type: unspecified Heart failure chronicity: acute Qualified Codes: I50.9 - Heart failure, unspecified YI ALY MD Feb 07, 2018 16:10 GILBERTO LYON DO Feb 07, 2018 20:51
--- NOTE | 2018-02-07 16:35 | EKG ---
FACILITY: [facility] - [place] PATIENT NAME: FRANCOIS LLAMAS : [id number] MR: [id number] V: [id number] EXAM DATE: ORDERING PHYSICIAN: YI ALY TECHNOLOGIST: Test Reason : CP, SOB Blood Pressure : / mmHG Vent. Rate : 086 BPM Atrial Rate : 086 BPM P-R Int : 148 ms QRS Dur : 080 ms QT Int : 330 ms P-R-T Axes : 047 020 135 degrees QTc Int : 394 ms Normal sinus rhythm with sinus arrhythmia Possible Left atrial enlargement Nonspecific ST and T wave abnormality Abnormal ECG When compared with ECG of 30-APR-2017 16:39, Nonspecific T wave abnormality now evident in Inferior leads Nonspecific T wave abnormality, worse in Anterolateral leads Confirmed by ARASH YATES ([id number]) on 02/07/2018 6:08:58 PM Referred By: Confirmed By:ARASH YATES
[2018-02-07 17:10] LABS: PLATELET COUNT, AUTOMATED 203 K/uL (150-450)
[2018-02-07 17:19] LABS: INR 1.4
--- NOTE | 2018-02-07 18:09 | RADIOLOGY IMAGING REPORT ---
FACILITY: [facility] [place] PATIENT NAME: Mala Villela : 1935 MR: [id number] V: [id number] EXAM DATE: ORDERING PHYSICIAN: YI ALY TECHNOLOGIST: Location: [facility] Patient: Mala Villela : 1935 Visit/Account:[id number] Date of Sevice: 02/07/2018 2 VIEWS CHEST INDICATION: Dizziness, shortness breath and chest pain. COMPARISON: 04/30/2017. FINDINGS: Cardiomediastinal silhouette and pulmonary vessels within normal limits. Right Port-A-Cath is in zohra ce tip in SVC. Bibasilar atelectasis. No focal consolidation. Mild blunting the costophrenic angles. No indication of pneumothorax. No discrete nodule. Upper abdomen is unremarkable. No acute bony abnormality. IMPRESSION: 1. Bibasilar atelectasis with small pleural effusions. No discrete focal infiltrate. Report Dictated By: Yordy Mckee at 02/07/2018 6:05 PM Report E-Signed By: Yordy Mckee at 02/07/2018 6:06 PM WSN:[email or web address]
[2018-02-07] MEDS ORDERED: IOPAMIDOL 76% 75 ML INFUS BTL 75 ML ONE (18:19)
[2018-02-07] MEDS ORDERED: NS(*) 0.9% 50 ML BAG 50 ML ONE (18:19)
[2018-02-07] MEDS ORDERED: ASPIRIN 81 MG CHEW PO ONE (18:30)
[2018-02-07] MEDS ORDERED: ALBUTEROL/IPRATROPIUM 3 ML NEB NEB ONE (18:30)
--- NOTE | 2018-02-07 20:21 | RADIOLOGY IMAGING REPORT ---
FACILITY: [facility] PATIENT NAME: Mala Villela : 1935 MR: [id number] V: [id number] EXAM DATE: ORDERING PHYSICIAN: YI ALY TECHNOLOGIST: Location: [facility] [place] Patient: Mala Villela : 1935 Visit/Account:[id number] Date of Sevice: 02/07/2018 CT angiogram chest with contrast Indication: Shortness of breath. Mild dysplasia. Comparison: None available. Technique: Axial CT images are obtained through the chest after administration of 75 mL Isovue 370 IV contrast. Reformatted coronal and sagittal images were reviewed as well as coronal MIP images. One of the following dose optimization techniques was utilized in the performance of this exam: auto mated exposure control; adjustment of the mA and/or kV according to the patient's size; or use of an iterative reconstruction technique. Specific details can be referenced in the facility's radiology C T exam operational policy. FINDINGS: No discrete pulmonary emboli are seen in the main pulmonary arteries or the segmental and subsegmenta l branches. The subsegmental branches of the right and left lower lobe pulmonary arteries and the po sterior aspect show poor opacification and cannot exclude small emboli in the small vessels. Heart is mildly diffusely enlarged without pericardial effusion. The aorta shows mild atheroscleroti c calcific changes without indication of aneurysm or dissection. The mediastinum and hilar regions s how no enlarged lymph nodes with multiple small lymph nodes. No abnormal density seen mediastinum. Right Port-A-Cath in place with tip in SVC. Moderate bilateral pleural effusions with associated atelectasis. Lungs show some mild hazy intersti tial changes which could be secondary to mild edema. No consolidations, pneumothorax or discrete nod ule. Airways are clear. The bony structures show no acute fracture or aggressive bony lesions. Mild degenerative change seen spine. Chest wall shows no enlarged axillary lymph nodes or masses. Minimal ascites. Upper abdomen is otherwise unremarkable. IMPRESSION: 1. Discrete pulmonary emboli. The posterior subsegmental branches of the lower lobes bilaterally sh ow possible small nonoccluding emboli however these are not well opacified. 2. Moderate bilateral pleural effusions associated atelectasis. 3. Mild cardiomegaly. There may be mild pulmonary edema present. I called report to Dr. Sandoval at 02/07/2018 8:16 PM. Report Dictated By: Yordy Mckee at 02/07/2018 8:07 PM Report E-Signed By: Yordy Mckee at 02/07/2018 8:18 PM WSN:[email or web address]
[2018-02-07] MEDS ORDERED: HEPARIN* SOD/D5W 25000 U/500ML 500 ML IV ONE ×2 (21:15→21:25)
[2018-02-07] MEDS ORDERED: HEPARIN (PORC) 5000 UN/ML VIAL IVP ONE (21:15)
[2018-02-07 22:00] VITALS: BP 126/72
[2018-02-13] MEDS ORDERED: APIX5TAB PO (09:35)
[2018-02-13] MEDS ORDERED: ATOR10TA65 PO (17:54)
== END 2018-02-07 22:20 | disposition short-term general hospital (02) ==
LOC: ER 16:13
DX: I26.99 Other pulmonary embolism without acute cor pulmonale (principal); I50.9 Heart failure, unspecified; R79.89 Other specified abnormal findings of blood chemistry; D46.9 Myelodysplastic syndrome, unspecified
CPT/HCPCS: 36416; 71046; 71275; 82948; 83880; 84484; 85025; 85610; 85730; 93005; 94640; 96374; 99284; A9270; J1644; J7050; J7620; Q9967; 82040; 82247; 82310; 82374; 82435; 82565; 82947; 84075; 84132; 84155; 84295; 84450; 84460; 84520

== ENCOUNTER → 2018-02-07 | Outpatient (CLI) | payer MEDICARE, OTHER ==
[2016-12-21 07:58] VITALS: BMI 31.6
[~2018-02-07] MED LIST changes: +AMLO-111 PO; -AMLO-96 PO; -AMLO2.5T74 PO; +AMLO2.5T76 PO; +APIX5TAB PO; +BISA-229 PO; +CEPH500T7 PO; +CHOL200018 PO; -CHOL200022 PO; +FLAX100029 PO; +GLIM2TAB43 PO; -HYDR-4309 PO; +HYDR-653 PO; +LISI5TAB25 PO; -LOSA50TA72 PO; +LOSA50TA74 PO; -METF-411 PO; -METF-421 PO; +METF-450 PO; +METF-452 PO; +POLY500P2 PO; -ROPI3TAB16 PO; +ROPI3TAB18 PO; -[UNRECOGNIZED DRUG - CODE] PO
== END ==
LOC: AMB 21:59
PROVIDERS: ATTEND Nurse Practitioner
DX: I26.99 Other pulmonary embolism without acute cor pulmonale (principal); R79.89 Other specified abnormal findings of blood chemistry; R07.89 Other chest pain; R06.02 Shortness of breath; R06.00 Dyspnea, unspecified; I49.8 Other specified cardiac arrhythmias
CPT/HCPCS: A0425; A0426

== ENCOUNTER 2018-02-14 10:20 | Emergency (ER) | payer MEDICARE, OTHER ==
[2016-12-21 07:58] VITALS: Wt 68.5 kg
[~2018-02-14 10:20] MED LIST changes: +APIX5TAB PO
[2018-02-14] MEDS ORDERED: LISI5TAB25 PO (10:41)
[2018-02-14] MEDS ORDERED: BISA-229 PO (10:41)
[2018-02-14] MEDS ORDERED: APIX5TAB PO (10:41)
[2018-02-14] MEDS ORDERED: POLY500P2 PO (10:41)
[2018-02-14] MEDS ORDERED: CEPH500T7 PO (10:41)
[2018-02-14] MEDS ORDERED: FURO-45 PO (10:41)
[2018-02-14] MEDS ORDERED: ASPIRIN 81 MG CHEW PO ONE (10:50)
--- NOTE | 2018-02-14 10:50 | EKG ---
FACILITY: [facility] PATIENT NAME: FRANCOIS LLAMAS : [id number] MR: [id number] V: [id number] EXAM DATE: ORDERING PHYSICIAN: BOBY CABAN TECHNOLOGIST: Test Reason : Chest Pain Blood Pressure : / mmHG Vent. Rate : 085 BPM Atrial Rate : 085 BPM P-R Int : 158 ms QRS Dur : 086 ms QT Int : 374 ms P-R-T Axes : 047 000 160 degrees QTc Int : 445 ms Sinus rhythm with marked sinus arrhythmia Possible Left atrial enlargement T wave abnormality, consider lateral ischemia Abnormal ECG When compared with ECG of 07-FEB-2018 16:12, Non-specific change in ST segment in Anterior leads T wave inversion now evident in Lateral leads Confirmed by Phong Yanes ([id number]) on 02/14/2018 10:33:13 PM Referred By: Confirmed By:Phong Woods
--- NOTE | 2018-02-14 10:59 | ER Report ---
History and Physical Time Seen By MD: 10:59 Hx. of Stated Complaint: PT REPORTS HAVING CHEST PAIN LAST NIGHT AND THEN AGAIN THIS AM. PT WAS JUST HOSPITALIZED FOR BILAT PE'S. HPI/ROS CHIEF COMPLAINT: Chest pain, shortness of breath HISTORY OF PRESENT ILLNESS: 82-year-old female patient presents to the emergency room with complaint of chest pain and shortness of breath. Patient states that last night she was going to bed and developed some chest pain which felt like a band wrapped around her chest and tightening. She states that she felt like she is not able to breathe. She went laid down in her room. She put on her C-pap. She states that seemed to help her with her oxygenation. She states the pain lasted approximately 30 minutes and then resolve. She states that has resolved it went away gradually. She denies any fevers, chills, nausea, vomiting or diarrhea. Patient states that this morning she had another episode of the chest pain. She states she was unable to get up and go to take a bath. She states that she did want to talk with her primary care provider about some medication questions she had. She states she stopped them that she was referred to the emergency room due to the complaint of chest pain. Patient was recently diagnosed with pulmonary emboli. REVIEW OF SYSTEMS: Respiratory: As noted above Cardiovascular: As noted above Gastrointestinal: No vomiting, no abdominal pain. Musculoskeletal: No back pain. Allergies: Coded Allergies: meclizine (Verified Allergy, Intermediate, Dizziness, 02/14/18) chlorpheniramine (Verified Allergy, Unknown, 02/14/18) pseudoephedrine (Verified Allergy, Unknown, 02/14/18) Home Meds Active Scripts Atorvastatin Calcium (ATORVASTATIN CALCIUM) 10 Mg Tablet, 1 TAB PO QDAY, #30 TAB 0 Refills Prov:ISABEL CURTIS MD 02/13/18 Glimepiride (GLIMEPIRIDE) 2 Mg Tablet, 3 TAB PO QDAY, #15 TAB 0 Refills Prov:SIRENA YANEZ APRN [employer]-C 01/18/18 Glimepiride (GLIMEPIRIDE) 2 Mg Tablet, 3 TAB PO QDAY, #21 TAB 0 Refills Prov:ISABEL CURTIS MD 01/11/18 Folic Acid (FOLIC ACID) 1 Mg Tablet, 1 MG PO QDAY for low hgb, #90 TAB 3 Refills Prov:ISABEL CURTIS MD 09/13/17 Levothyroxine Sodium (LEVOTHYROXINE SODIUM) 75 Mcg Tablet, 1 TAB PO QDAY, #90 TAB 4 Refills Prov:ISABEL CURTIS MD 08/30/17 Linaclotide (LINZESS) 145 Mcg Capsule, 1 CAP PO DAILY, #90 CAPSULE 3 Refills Prov:ISABEL CURTIS MD 06/29/17 Reported Medications Polyethylene Glycol 8000 (POLYETHYLENE GLYCOL) 500 Gm Powder, 17 GM PO DAILY 02/14/18 Bisacodyl (DULCOLAX) 5 Mg Tablet.dr, 10 MG PO DAILY 02/14/18 Cephalexin 500 Mg Tab (KEFLEX 500 MG TAB) 500 Mg Tablet, 500 MG PO Q6H, #28 TAB 02/14/18 Apixaban (ELIQUIS) 5 Mg Tablet, 10 MG PO BID 02/14/18 Lisinopril (LISINOPRIL) 5 Mg Tablet, 5 MG PO DAILY, TAB 02/14/18 Furosemide (FUROSEMIDE) 20 Mg Tablet, 1 TAB PO DAILY, TAB 02/14/18 Saline (AYR SALINE NASAL GEL) 14.1 Gm Gel, 14.1 GM NA DAILY, GEL 07/30/17 [place]-3 Fatty Acids/Fish Oil (OMEGA 3 1,000 MG SOFTGEL) 1 Each Capsule, 2 EACH PO QDAY, CAPSULE 07/30/17 Aspirin (ASPIR 81) 81 Mg Tablet.dr, 1 TAB PO QDAY, TAB 11/09/16 Nitroglycerin (NITROGLYCERIN) 0.4 Mg Tab.subl, 1 TAB SL Q5MIN PRN for PAIN Max 3 doses. Call 911 if pain is not relieved. 11/09/16 Cyanocobalamin (Vitamin B-12) (Vitamin B12) 2,500 Mcg Tablet, 1 TAB PO DAILY 02/22/16 Guaifenesin (MUCINEX) 600 Mg Tablet.er, PO PRN 04/15/15 Calcium Carbonate (Calcium) 600 Mg Tablet, 1 TAB PO DAILY, 0 Refills 08/11/10 Multivitamins W-Minerals (Multiple Vitamin) 1 Tab Tablet, 1 TAB PO DAILY, 0 Refills 08/11/10 Discontinued Reported Medications Clopidogrel Bisulfate (CLOPIDOGREL) 75 Mg Tablet, 1 TAB PO QDAY, TAB 11/09/16 Discontinued Scripts Apixaban (ELIQUIS) 5 Mg Tablet, 5 MG PO BID, #180 TAB 3 Refills Prov:ISABEL CURTIS MD 02/13/18 Glimepiride (GLIMEPIRIDE) 2 Mg Tablet, 3 TAB PO QDAY, #90 TAB 0 Refills Prov:ISABEL CURTIS MD 01/11/18 Neomycin/Polymyxin B Sulf/Hc (Cortisporin [DSC] EAR SOLN) 10 Ml Solution, 4 GTT LEFT EAR TID for 7 Days, #1 BOT 0 Refills Prov:SIRENA YANEZ APRN [employer] SERV[employer]-C 11/23/17 Past Medical/Surgical History Patient has a past medical history of headaches, hypertension, hyperlipidemia, continuous oxygen, asthma, chronic bronchitis, tightness pain with eating/ambulation, esophageal issues, heartburn, arthritis, back pain, dysphagia, diabetes, hypothyroidism, depression, anxiety, leukemia. Patient has a surgical history of orthopedic surgery, breast biopsy, colonoscopy, EGD, cholecystitis, coronary stent. Patient has a family medical history of cancer, CAD, stroke, diabetes. Reviewed Nurses Notes: Yes Hx Smoking: No Smoking Status: Never Smoker Exposure to Second Hand Smoke?: Yes (ALL HER LIFE.) Hx Substance Use Disorder: No Hx Alcohol Use: No Constitutional Vital Sign - Last 24 Hours 02/14/18 02/14/18 02/14/18 02/14/18 10:41 10:46 11:11 11:52 Temp 97.8 Pulse 83 90 Resp 22 15 B/P (MAP) 122/56 125/57 (79) 108/68 (81) Pulse Ox 100 98 O2 Delivery Nasal Cannula Room Air O2 Flow Rate 3.0 3 02/14/18 02/14/18 02/14/18 02/14/18 12:00 12:15 12:30 12:45 Pulse 77 75 83 86 Resp 17 6 18 17 B/P (MAP) 108/53 (71) 112/70 (84) Pulse Ox 100 99 100 100 02/14/18 13:00 Pulse 81 Resp 16 B/P (MAP) 127/62 (83) Pulse Ox 100 Physical Exam General Appearance: The patient is alert, has no immediate need for airway protection and no current signs of toxicity. Respiratory: Chest is non tender, lungs are clear to auscultation. Cardiac: regular rate and rhythm Gastrointestinal: Abdomen is soft and non tender, no masses, bowel sounds normal. Musculoskeletal: Neck: Neck is supple and non tender. Extremities have full range of motion and are non tender. Skin: No rashes or lesions. DIFFERENTIAL DIAGNOSIS: After history and physical exam differential diagnosis was considered for chest pain including but not limited to myocardial ischemia, pericarditis pulmonary embolus, chest wall pain, pleural inflammation and pulmonary infectious causes. Medical Decision Making Data Points Result Diagram: 02/14/18 1051 02/14/18 1051 Laboratory Hematology Test 06/17/15 00:00 02/14/18 10:51 Neutrophils # 2.6 th/mm3 Hematocrit 9.0 g/dl Hemoglobin 27.4 g/dl Platelet Count 306 th/mm3 White Blood Count 4.2 th/mm3 Albumin 4.7 g/dl 3.3 g/dl (3.5-5.0) Alkaline Phosphatase 77 IU/L 72 U/L (0-126) Alanine Aminotransferase (ALT/SGPT) 25 u/L 54 U/L (0-56) Aspartate Amino Transf (AST/SGOT) 19 gloria/L 28 U/L (0-35) Blood Urea Nitrogen 16 mg/dl 18 mg/dl (7-18) Calcium Level 9.5 mg/dl 8.7 mg/dl (8.4-10.2) Chloride Level 96 mmol/L 99 mmol/L (98-107) Carbon Dioxide Level 26 mmol/L 29 mmol/L (22-31) Creatinine 0.72 mg/dl 0.50 mg/dl (0.52-1.04) Glucose Level 86 mg/dl Potassium Level 4.1 mmol/L 4.2 mmol/L (3.5-5.0) Sodium Level 138 mmol/L 134 mmol/L (137-145) Total Protein 6.4 g/dl 5.3 g/dl (6.3-8.2) Total Bilirubin 0.9 mg/dl 2.8 mg/dl (0.2-1.3) Red Blood Count 2.78 M/uL (4.17-5.56) Mean Corpuscular Volume 97.6 fL (80.0-96.0) Mean Corpuscular Hemoglobin 31.0 pg (26.0-33.0) Mean Corpuscular Hemoglobin Concent 31.8 g/dL (32.0-36.0) Red Cell Distribution Width 19.9 % (11.5-14.5) Mean Platelet Volume 9.7 fL (7.2-11.1) Neutrophils (%) (Auto) 67.3 % (39.4-72.5) Lymphocytes (%) (Auto) 19.3 % (17.6-49.6) Monocytes (%) (Auto) 12.9 % (4.1-12.4) Eosinophils (%) (Auto) 0.1 % (0.4-6.7) Basophils (%) (Auto) 0.4 % (0.3-1.4) Nucleated RBC Relative Count (auto) 0.0 /100WBC Neutrophils # (Auto) 1.1 K/uL (2.0-7.4) Lymphocytes # (Auto) 0.3 K/uL (1.3-3.6) Monocytes # (Auto) 0.2 K/uL (0.3-1.0) Eosinophils # (Auto) 0.0 K/uL (0.0-0.5) Basophils # (Auto) 0.0 K/uL (0.0-0.1) Nucleated RBC Absolute Count (auto) 0.00 K/uL Prothrombin Time 21.4 seconds (12.0-14.4) Prothromb Time International Ratio 1.83 Activated Partial Thromboplast Time 59 seconds (23-35) Glomerular Filtration Rate Calc > 60.0 Random Glucose 377 mg/dl (75-110) Troponin I 0.021 ng/ml B-Type Natriuretic Peptide 971 pg/ml (0-100) Chemistry Test 06/17/15 00:00 02/14/18 10:51 Neutrophils # 2.6 th/mm3 Hematocrit 9.0 g/dl 27.1 % (34.0-47.0) Hemoglobin 27.4 g/dl 8.6 g/dL (12.0-16.0) Platelet Count 306 th/mm3 109 K/uL (150-450) White Blood Count 4.2 th/mm3 1.7 k/uL (4.5-11.0) Albumin 4.7 g/dl 3.3 g/dl (3.5-5.0) Alkaline Phosphatase 77 IU/L 72 U/L (0-126) Alanine Aminotransferase (ALT/SGPT) 25 u/L 54 U/L (0-56) Aspartate Amino Transf (AST/SGOT) 19 gloria/L 28 U/L (0-35) Blood Urea Nitrogen 16 mg/dl Calcium Level 9.5 mg/dl 8.7 mg/dl (8.4-10.2) Chloride Level 96 mmol/L Carbon Dioxide Level 26 mmol/L Creatinine 0.72 mg/dl Glucose Level 86 mg/dl Potassium Level 4.1 mmol/L Sodium Level 138 mmol/L Total Protein 6.4 g/dl 5.3 g/dl (6.3-8.2) Total Bilirubin 0.9 mg/dl 2.8 mg/dl (0.2-1.3) Red Blood Count 2.78 M/uL (4.17-5.56) Mean Corpuscular Volume 97.6 fL (80.0-96.0) Mean Corpuscular Hemoglobin 31.0 pg (26.0-33.0) Mean Corpuscular Hemoglobin Concent 31.8 g/dL (32.0-36.0) Red Cell Distribution Width 19.9 % (11.5-14.5) Mean Platelet Volume 9.7 fL (7.2-11.1) Neutrophils (%) (Auto) 67.3 % (39.4-72.5) Lymphocytes (%) (Auto) 19.3 % (17.6-49.6) Monocytes (%) (Auto) 12.9 % (4.1-12.4) Eosinophils (%) (Auto) 0.1 % (0.4-6.7) Basophils (%) (Auto) 0.4 % (0.3-1.4) Nucleated RBC Relative Count (auto) 0.0 /100WBC Neutrophils # (Auto) 1.1 K/uL (2.0-7.4) Lymphocytes # (Auto) 0.3 K/uL (1.3-3.6) Monocytes # (Auto) 0.2 K/uL (0.3-1.0) Eosinophils # (Auto) 0.0 K/uL (0.0-0.5) Basophils # (Auto) 0.0 K/uL (0.0-0.1) Nucleated RBC Absolute Count (auto) 0.00 K/uL Prothrombin Time 21.4 seconds (12.0-14.4) Prothromb Time International Ratio 1.83 Activated Partial Thromboplast Time 59 seconds (23-35) Glomerular Filtration Rate Calc > 60.0 Troponin I 0.021 ng/ml B-Type Natriuretic Peptide 971 pg/ml (0-100) Coagulation Test 02/14/18 10:51 Prothrombin Time 21.4 seconds Prothromb Time International Ratio 1.83 Activated Partial Thromboplast Time 59 seconds EKG/Imaging EKG Interpretation 12 lead EKG: Rhythm: Sinus rhythm with marked sinus arrhythmia [place]: normal QRS: normal ST segments: T-wave inversion in aVL, T-wave flattening in lead 3 Imaging EXAMINATION: CT chest angiogram HISTORY: Chest pain, short of breath TECHNIQUE: CT angiogram was obtained through the chest with intravenous contrast. Sagittal and coronal MPR and MIP coronal reformations were generated. 75 mL isovue 370 was injected. One of the following dose optimization techniques was utilized in the performance of this exam: automated exposure control; adjustment of the mA an d/or kV according to patient size; or use of iterative reconstruction technique. Specific details can be referenced in the facility's radiology CT exam operational policy. COMPARISON: February 07, 2018 FINDINGS: Lower neck: Normal. Heart / pericardium/aorta/great vessels: Coronary artery calcifications. Otherwise normal for age. Mediastinum: Tiny hiatal hernia. Lymph node assessment: Normal. Pleura: Moderate right and small left pleural effusions have decreased in size. Pulmonary arteries/pulmonary arterial vascular tree: Tiny residual nonocclusive filling defect within a right lower lobe subsegmental branch, axial image 198. Unchanged emboli within medial left lower lobe subsegmental branches, axial image 185.. Lungs: Faint groundglass opacification in the posterior bilateral upper lobes has increased on the left. Peripheral interlobular septal thickening remains and has decreased. Upper abdomen: Normal. Chest wall: Right chest wall port with catheter tip at the cavoatrial junction. Musculoskeletal: Chronic bilateral rib fracture deformities as before. IMPRESSION: 1. Unchanged subsegmental emboli in the medial left lower lobe. 2. Minimal residual embolus in a right lower lobe subsegmental branch. Otherwise resolution of the previously seen lower lobe emboli. 3. No new pulmonary emboli. 4. Moderate sized right and small sized left pleural effusions have decreased in size. 5. Mild pulmonary edema has increased in the left upper lobe. Report Dictated By: Christopher Skinner MD at 02/14/2018 12:19 PM Report E-Signed By: Christopher Skinner MD at 02/14/2018 12:28 PM ED Course/Re-evaluation ED Course Patient was admitted to an exam room, history and physical were obtained. Differential diagnoses were considered. On examination lungs are clear, heart is regular, abdomen soft and nontender. Patient had improvement of her symptoms here in the emergency room. A CBC, CMP, troponin, chest x-ray were done. Chest x-ray was negative, EKG showed a sinus rhythm, CBC showed a low white count of 1.7, however yesterday she was 2.8. Patient is not neutropenic and she has an ANC of 1100. Troponin was negative. Patient states she's feeling significantly improved. We will go ahead and discharge patient home at this time. She is to follow-up with her primary care provider tomorrow as previously scheduled. We will go ahead and have her stop taking her aspirin at this time while she is on the elbows. I will let Dr. Curtis decide if she would like her to continue the aspirin. Patient states she feels better and would like to be able to go home this time. We will go ahead and discharge her to follow-up with her primary care provider tomorrow. Decision to Disposition Date: Feb 14, 2018 Decision to Disposition Time: 12:53 Depart Departure Latest Vital Signs Vital Signs Date Time Temp Pulse Resp B/P (MAP) Pulse Ox O2 Delivery O2 Flow Rate FiO2 02/14/18 13:00 81 16 127/62 (83) 100 02/14/18 11:52 Room Air 3 02/14/18 10:41 97.8 Impression: Primary Impression: Chest pain Additional Impression: Anxiety Condition: Improved Disposition: HOME OR SELF-CARE Referrals: ISABEL CURTIS MD (PCP) Patient Instructions: Chest Pain (ED) Additional Instructions: Limit fluid intake. Hold off on the Aspirin for until cleared by your primary care provider, tomorrow at 10:00 a.m. Return to the ER if condition worsens. When you are having the chest tightness, try to stop and take deep breaths, in through your nose and out through your mouth. Continue with normal medications. Problem Qualifiers Primary Impression: Chest pain Chest pain type: other chest pain Qualified Codes: R07.89 - Other chest pain JANNET SHULTZ MOBILE HOME SERVICER Feb 14, 2018 10:59
[2018-02-14 11:14] LABS: PLATELET COUNT, AUTOMATED 109 K/uL (150-450)
[2018-02-14 11:18] LABS: INR 1.83
[2018-02-14] MEDS ORDERED: IOPAMIDOL 76% 75 ML INFUS BTL 75 ML ONE (11:30)
[2018-02-14] MEDS ORDERED: NS(*) 0.9% 50 ML BAG 50 ML ONE (11:30)
--- NOTE | 2018-02-14 12:33 | RADIOLOGY IMAGING REPORT ---
FACILITY: [facility] PATIENT NAME: Mala Villela : 1935 MR: [id number] V: [id number] EXAM DATE: [id number] ORDERING PHYSICIAN: JANNET SHULTZ TECHNOLOGIST: Location: [facility] Patient: Mala Villela : 1935 Visit/Account:[id number] Date of Sevice: 02/14/2018 EXAMINATION: CT chest angiogram HISTORY: Chest pain, short of breath TECHNIQUE: CT angiogram was obtained through the chest with intravenous contrast. Sagittal and cor onal MPR and MIP coronal reformations were generated. 75 mL isovue 370 was injected. One of the following dose optimization techniques was utilized in the performance of this exam: autom ated exposure control; adjustment of the mA and/or kV according to patient size; or use of iterative reconstruction technique. Specific details can be referenced in the facility's radiology CT exam ope rational policy. COMPARISON: February 07, 2018 FINDINGS: Lower neck: Normal. Heart / pericardium/aorta/great vessels: Coronary artery calcifications. Otherwise normal for age. Mediastinum: Tiny hiatal hernia. Lymph node assessment: Normal. Pleura: Moderate right and small left pleural effusions have decreased in size. Pulmonary arteries/pulmonary arterial vascular tree: Tiny residual nonocclusive filling defect within a right lower lobe subsegmental branch, axial image 198. Unchanged emboli within medial left lower l obe subsegmental branches, axial image 185.. Lungs: Faint groundglass opacification in the posterior bilateral upper lobes has increased on the l eft. Peripheral interlobular septal thickening remains and has decreased. Upper abdomen: Normal. Chest wall: Right chest wall port with catheter tip at the cavoatrial junction. Musculoskeletal: Chronic bilateral rib fracture deformities as before. IMPRESSION: 1. Unchanged subsegmental emboli in the medial left lower lobe. 2. Minimal residual embolus in a right lower lobe subsegmental branch. Otherwise resolution of the pr eviously seen lower lobe emboli. 3. No new pulmonary emboli. 4. Moderate sized right and small sized left pleural effusions have decreased in size. 5. Mild pulmonary edema has increased in the left upper lobe. Report Dictated By: Christopher Skinner MD at 02/14/2018 12:19 PM Report E-Signed By: Christopher Skinner MD at 02/14/2018 12:28 PM WSN:[id number]
[2018-02-14 13:00] VITALS: BP 127/62
== END 2018-02-14 13:34 | disposition home or self-care (01) ==
LOC: ER 10:27
DX: R07.89 Other chest pain (principal); F41.9 Anxiety disorder, unspecified
CPT/HCPCS: 36415; 71275; 83880; 84484; 85025; 85610; 85730; 93005; 99284; J7050; Q9967; 82040; 82247; 82310; 82374; 82435; 82565; 82947; 84075; 84132; 84155; 84295; 84450; 84460; 84520

== ENCOUNTER 2018-03-06 04:32 | Emergency (ER) | payer MEDICARE, OTHER ==
[2016-12-21 07:58] VITALS: Wt 68.7 kg
[~2018-03-06 04:32] MED LIST changes: +BISA-229 PO; +CEPH500T7 PO; +LISI5TAB25 PO; +POLY500P2 PO
[2018-03-06] MEDS ORDERED: NS(*) 0.9% 1000 ML BAG 1,000 ML IV ONE (04:40)
[2018-03-06] MEDS ORDERED: ASPIRIN 81 MG CHEW PO ONE (04:40)
[2018-03-06] MEDS ORDERED: ONDANSETRON 4 MG/2 ML VIAL IVP ONE (04:40)
[2018-03-06] MEDS ORDERED: DILTIAZEM 5 MG/ML 5ML IVPUSH IVP ONE ×2 (04:40→05:25)
--- NOTE | 2018-03-06 04:40 | ER Report ---
History and Physical Time Seen By MD: 04:39 HPI/ROS CHIEF COMPLAINT: Chest pressure, shortness of breath HISTORY OF PRESENT ILLNESS: 82-year-old female presents with vomiting and not feeling well. REVIEW OF SYSTEMS: Respiratory: [No cough, no dyspnea.] Cardiovascular: [No chest pain, no palpitations.] Gastrointestinal: [No vomiting, no abdominal pain.] Musculoskeletal: [No back pain.] Allergies: Coded Allergies: meclizine (Verified Allergy, Intermediate, Dizziness, 03/06/18) chlorpheniramine (Verified Allergy, Unknown, 03/06/18) pseudoephedrine (Verified Allergy, Unknown, 03/06/18) Home Meds Active Scripts Diltiazem Hcl (DILTIAZEM 24HR CD) 120 Mg Cap.er.24h, 120 MG PO DAILY for atrial fibrillation control, #30 Prov:GILBERTO LYON DO 03/06/18 Lisinopril (LISINOPRIL) 5 Mg Tablet, 5 MG PO DAILY, #90 TAB 1 Refill Prov:ISABEL MOYA MD 02/26/18 Glimepiride (GLIMEPIRIDE) 2 Mg Tablet, 3 TAB PO QDAY, #270 TAB 1 Refill Prov:ISABEL MOYA MD 02/26/18 Furosemide (FUROSEMIDE) 20 Mg Tablet, 1 TAB PO DAILY, #90 TAB 3 Refills Prov:ISABEL MOYA MD 02/25/18 Atorvastatin Calcium (ATORVASTATIN CALCIUM) 10 Mg Tablet, 1 TAB PO QDAY, #90 TAB 3 Refills Prov:ISABEL MOYA MD 02/21/18 Folic Acid (FOLIC ACID) 1 Mg Tablet, 1 MG PO QDAY for low hgb, #90 TAB 3 Refills Prov:ISABEL MOYA MD 09/13/17 Levothyroxine Sodium (LEVOTHYROXINE SODIUM) 75 Mcg Tablet, 1 TAB PO QDAY, #90 TAB 4 Refills Prov:ISABEL MOYA MD 08/30/17 Linaclotide (LINZESS) 145 Mcg Capsule, 1 CAP PO DAILY, #90 CAPSULE 3 Refills Prov:ISABEL MOYA MD 06/29/17 Reported Medications Polyethylene Glycol 8000 (POLYETHYLENE GLYCOL) 500 Gm Powder, 17 GM PO DAILY 02/14/18 Bisacodyl (DULCOLAX) 5 Mg Tablet.dr, 10 MG PO DAILY 02/14/18 Apixaban (ELIQUIS) 5 Mg Tablet, 10 MG PO BID 02/14/18 Saline (AYR SALINE NASAL GEL) 14.1 Gm Gel, 14.1 GM NA DAILY, GEL 07/30/17 [place]-3 Fatty Acids/Fish Oil (OMEGA 3 1,000 MG SOFTGEL) 1 Each Capsule, 2 EACH PO QDAY, CAPSULE 07/30/17 Nitroglycerin (NITROGLYCERIN) 0.4 Mg Tab.subl, 1 TAB SL Q5MIN PRN for PAIN Max 3 doses. Call 911 if pain is not relieved. 11/09/16 Cyanocobalamin (Vitamin B-12) (Vitamin B12) 2,500 Mcg Tablet, 1 TAB PO DAILY 02/22/16 Guaifenesin (MUCINEX) 600 Mg Tablet.er, PO PRN 04/15/15 Calcium Carbonate (Calcium) 600 Mg Tablet, 1 TAB PO DAILY, 0 Refills 08/11/10 Multivitamins W-Minerals (Multiple Vitamin) 1 Tab Tablet, 1 TAB PO DAILY, 0 Refills 08/11/10 Past Medical/Surgical History Patient has a past medical history of headaches, hypertension, hyperlipidemia, continuous oxygen, asthma, chronic bronchitis, tightness pain with eating/ambulation, esophageal issues, heartburn, arthritis, back pain, dysphagia, diabetes, hypothyroidism, depression, anxiety, leukemia. Patient has a surgical history of orthopedic surgery, breast biopsy, colonosco py, EGD, cholecystitis, coronary stent. Patient has a family medical history of cancer, CAD, stroke, diabetes. Reviewed Nurses Notes: Yes Old Medical Records Reviewed: Yes Hx Smoking: No Smoking Status: Never Smoker Exposure to Second Hand Smoke?: Yes (ALL HER LIFE.) Hx Substance Use Disorder: No Hx Alcohol Use: No Constitutional Vital Sign - Last 24 Hours 03/06/18 03/06/18 03/06/18 03/06/18 04:37 04:37 04:47 04:52 Pulse 176 202 201 105 Resp 20 22 48 16 B/P (MAP) 111/90 (97) 111/90 Pulse Ox 100 100 100 O2 Delivery Nasal Cannula 03/06/18 03/06/18 03/06/18 03/06/18 04:57 05:00 05:00 05:02 Pulse 162 176 Resp 17 11 B/P (MAP) 99/78 (85) 84/70 (75) Pulse Ox 100 100 O2 Flow Rate 3.5 03/06/18 03/06/18 03/06/18 03/06/18 05:05 05:07 05:10 05:15 Pulse 122 Resp 14 B/P (MAP) 108/62 (77) 116/62 (80) 86/64 (71) Pulse Ox 99 03/06/18 03/06/18 03/06/18 03/06/18 05:17 05:22 05:25 05:27 Pulse 130 129 130 Resp 24 20 13 B/P (MAP) 101/70 (80) Pulse Ox 99 99 98 03/06/18 03/06/18 03/06/18 03/06/18 05:30 05:35 05:40 05:45 Pulse 118 119 Resp 8 12 B/P (MAP) 110/63 (79) 120/64 (82) 102/49 (66) 109/57 (74) Pulse Ox 100 100 03/06/18 03/06/18 03/06/18 03/06/18 05:50 05:55 06:00 06:05 Pulse 121 121 122 119 Resp 21 7 14 20 B/P (MAP) 100/45 (63) 112/60 (77) 105/59 (74) 100/74 (83) Pulse Ox 99 100 99 100 03/06/18 03/06/18 03/06/18 03/06/18 06:10 06:15 06:30 06:35 Pulse 122 Resp 26 B/P (MAP) 102/54 (70) 101/57 (72) 109/65 (80) 100/54 (69) Pulse Ox 100 03/06/18 03/06/18 03/06/18 03/06/18 06:40 06:45 06:50 06:55 Pulse 125 Resp 16 B/P (MAP) 101/59 (73) 90/76 (81) 82/60 (67) 108/63 (78) Pulse Ox 98 03/06/18 03/06/18 03/06/18 07:00 07:05 07:10 Pulse 114 125 120 Pulse Ox 99 99 99 Physical Exam General Appearance: The patient is alert, has no immediate need for airway protection and no current signs of toxicity. Tachycardic rate 200, pale appeari ng, skin cool and dry, dry heaves HEENT: Pupils equal and round no injection. Icteric sclera, jaundice-appearing, oropharynx without redness or exudate Respiratory: Chest is non tender, lungs are clear to auscultation. Bibasilar Rales noted Cardiac: Tachycardic, distant heart sounds Gastrointestinal: Abdomen is soft and non tender, no masses, bowel sounds normal. Musculoskeletal: Neck: Neck is supple and non tender. Extremities have full range of motion and are non tender. No edema, no calf tenderness Skin: No rashes or lesions. DIFFERENTIAL DIAGNOSIS: After history and physical exam differential diagnosis was considered for chest pain including but not limited to myocardial ischemia, pericarditis pulmonary embolus, chest wall pain, pleural inflammation, cardiac dysrhythmia and pulmonary infectious causes. Medical Decision Making Data Points Result Diagram: 03/06/1844903/06/18 045 Laboratory Hematology Test 06/17/15 00:00 03/06/18 04:50 03/06/18 06:30 Neutrophils # 2.6 th/mm3 Hematocrit 9.0 g/dl Hemoglobin 27.4 g/dl Platelet Count 306 th/mm3 White Blood Count 4.2 th/mm3 Albumin 4.7 g/dl 3.6 g/dl (3.5-5.0) Alkaline Phosphatase 77 IU/L 79 U/L (0-126) Alanine Aminotransferase (ALT/SGPT) 25 u/L 59 U/L (0-56) Aspartate Amino Transf (AST/SGOT) 19 gloria/L 37 U/L (0-35) Blood Urea Nitrogen 16 mg/dl 21 mg/dl (7-18) Calcium Level 9.5 mg/dl 8.9 mg/dl (8.4-10.2) Chloride Level 96 mmol/L 98 mmol/L (98-107) Carbon Dioxide Level 26 mmol/L 21 mmol/L (22-31) Creatinine 0.72 mg/dl 0.60 mg/dl (0.52-1.04) Glucose Level 86 mg/dl Potassium Level 4.1 mmol/L 4.6 mmol/L (3.5-5.0) Sodium Level 138 mmol/L 132 mmol/L (137-145) Total Protein 6.4 g/dl 5.5 g/dl (6.3-8.2) Total Bilirubin 0.9 mg/dl 6.9 mg/dl (0.2-1.3) Red Blood Count 2.84 M/uL (4.17-5.56) Mean Corpuscular Volume 104.2 fL (80.0-96.0) Mean Corpuscular Hemoglobin 32.7 pg (26.0-33.0) Mean Corpuscular Hemoglobin Concent 31.3 g/dL (32.0-36.0) Red Cell Distribution Width 21.4 % (11.5-14.5) Mean Platelet Volume 9.8 fL (7.2-11.1) Neutrophils (%) (Auto) 80.2 % (39.4-72.5) Lymphocytes (%) (Auto) 12.7 % (17.6-49.6) Monocytes (%) (Auto) 6.4 % (4.1-12.4) Eosinophils (%) (Auto) 0.1 % (0.4-6.7) Basophils (%) (Auto) 0.6 % (0.3-1.4) Nucleated RBC Relative Count (auto) 0.2 /100WBC Neutrophils # (Auto) 2.8 K/uL (2.0-7.4) Lymphocytes # (Auto) 0.4 K/uL (1.3-3.6) Monocytes # (Auto) 0.2 K/uL (0.3-1.0) Eosinophils # (Auto) 0.0 K/uL (0.0-0.5) Basophils # (Auto) 0.0 K/uL (0.0-0.1) Nucleated RBC Absolute Count (auto) 0.01 K/uL Glomerular Filtration Rate Calc > 60.0 Random Glucose 519 mg/dl (75-110) Troponin I 0.016 ng/ml B-Type Natriuretic Peptide 761 pg/ml (0-100) Whole Blood Glucose 443 mg/DL (75-110) Chemistry Test 06/17/15 00:00 03/06/18 04:50 03/06/18 06:30 Neutrophils # 2.6 th/mm3 Hematocrit 9.0 g/dl 29.6 % (34.0-47.0) Hemoglobin 27.4 g/dl 9.3 g/dL (12.0-16.0) Platelet Count 306 th/mm3 152 K/uL (150-450) White Blood Count 4.2 th/mm3 3.5 k/uL (4.5-11.0) Albumin 4.7 g/dl 3.6 g/dl (3.5-5.0) Alkaline Phosphatase 77 IU/L 79 U/L (0-126) Alanine Aminotransferase (ALT/SGPT) 25 u/L 59 U/L (0-56) Aspartate Amino Transf (AST/SGOT) 19 gloria/L 37 U/L (0-35) Blood Urea Nitrogen 16 mg/dl Calcium Level 9.5 mg/dl 8.9 mg/dl (8.4-10.2) Chloride Level 96 mmol/L Carbon Dioxide Level 26 mmol/L Creatinine 0.72 mg/dl Glucose Level 86 mg/dl Potassium Level 4.1 mmol/L Sodium Level 138 mmol/L Total Protein 6.4 g/dl 5.5 g/dl (6.3-8.2) Total Bilirubin 0.9 mg/dl 6.9 mg/dl (0.2-1.3) Red Blood Count 2.84 M/uL (4.17-5.56) Mean Corpuscular Volume 104.2 fL (80.0-96.0) Mean Corpuscular Hemoglobin 32.7 pg (26.0-33.0) Mean Corpuscular Hemoglobin Concent 31.3 g/dL (32.0-36.0) Red Cell Distribution Width 21.4 % (11.5-14.5) Mean Platelet Volume 9.8 fL (7.2-11.1) Neutrophils (%) (Auto) 80.2 % (39.4-72.5) Lymphocytes (%) (Auto) 12.7 % (17.6-49.6) Monocytes (%) (Auto) 6.4 % (4.1-12.4) Eosinophils (%) (Auto) 0.1 % (0.4-6.7) Basophils (%) (Auto) 0.6 % (0.3-1.4) Nucleated RBC Relative Count (auto) 0.2 /100WBC Neutrophils # (Auto) 2.8 K/uL (2.0-7.4) Lymphocytes # (Auto) 0.4 K/uL (1.3-3.6) Monocytes # (Auto) 0.2 K/uL (0.3-1.0) Eosinophils # (Auto) 0.0 K/uL (0.0-0.5) Basophils # (Auto) 0.0 K/uL (0.0-0.1) Nucleated RBC Absolute Count (auto) 0.01 K/uL Glomerular Filtration Rate Calc > 60.0 Troponin I 0.016 ng/ml B-Type Natriuretic Peptide 761 pg/ml (0-100) Whole Blood Glucose 443 mg/DL (75-110) EKG/Imaging EKG Interpretation 12 lead EK Rhythm: Sinus tachycardia, rate 201 bpm Geraldine: normal QRS: normal ST segments: Marked ST depression throughout, comparison to previous EKG dated 02/14/18 12 lead EKG: Repeat at 0511 after diltiazem 10 mg IV, controlled rate Rhythm: Atrial fibrillation with a rate of 120 Geraldine: normal QRS: normal ST segments: Diffuse nonspecific T-wave changes ED Course/Re-evaluation Clinical Indication for ER IV: Hydration, IV Access ED Course Patient was admitted to an examination room. H&P was done. The differential diagnoses was considered. On clinical examination. Patient has a rapid heart rate nearly 200 on the conveyor monitor. An EKG shows a narrow complex SVT. Patient has an IV established in her central port. She is given the scene 6 mg while watching the conveyor monitor. She slows down, but goes back into SVT with a rate of 200. Adenosine 12 mg is administered. She slows down to 50 bpm, and it appears to convert, but then goes back into a narrow complex SVT. Patient be given diltiazem 10 mg IV and repeated doses to control her rate. She may need a diltiazem drip. Diffuse ST depression noted on EKG suggesting some ischemic and strain. She does have an ejection fraction of 40% in her old records. Decision to Disposition Date: Mar 06, 2018 Decision to Disposition Time: 05:36 Depart Departure Latest Vital Signs Vital Signs Date Time Temp Pulse Resp B/P (MAP) Pulse Ox O2 Delivery O2 Flow Rate FiO2 03/06/18 07:10 120 99 03/06/18 06:55 16 108/63 (78) 03/06/18 05:00 3.5 03/06/18 04:37 Nasal Cannula Impression: Primary Impression: Atrial fibrillation with RVR Additional Impressions: Chest tightness Hyperglycemia Myelodysplastic syndrome Chronic anemia Condition: Improved Disposition: HOME OR SELF-CARE Referrals: ISABEL MOYA MD (PCP) New Scripts Diltiazem Hcl (DILTIAZEM 24HR CD) 120 Mg Cap.er.24h 120 MG PO DAILY for atrial fibrillation control, #30 Prov: GILBERTO LYON DO 03/06/18 Patient Instructions: A-fib (Atrial Fibrillation) (ED) Additional Instructions: All up with your doctor in the next 1-2 days for recheck of your blood pressure and rate control. Problem Qualifiers GILBERTO LYON DO Mar 06, 2018 04:40
[2018-03-06] MEDS ORDERED: ADENOSINE(*)IV SOLN 3MG/ML IVP ONE ×2 (04:45→04:55)
[2018-03-06] MEDS ORDERED: ADENOSINE(*)IV SOLN 3MG/ML ONE (04:56)
[2018-03-06 05:01] LABS: PLATELET COUNT, AUTOMATED 152 K/uL (150-450)
[2018-03-06] MEDS ORDERED: INSU HUM REG 100 U/ML(ER ONLY) 10 ML VIAL IVP ONE (05:25)
[2018-03-06] MEDS ORDERED: DILTIAZEM CD 120 MG CAPCR PO ONE (05:45)
--- NOTE | 2018-03-06 06:10 | EKG ---
FACILITY: [facility] PATIENT NAME: FRANCOIS LLAMAS : [id number] MR: [id number] V: [id number] EXAM DATE: ORDERING PHYSICIAN: GILBERTO LYON TECHNOLOGIST: JACKSON Test Reason : SVT TX Blood Pressure : / mmHG Vent. Rate : 120 BPM Atrial Rate : 277 BPM P-R Int : 000 ms QRS Dur : 102 ms QT Int : 336 ms P-R-T Axes : 000 021 179 degrees QTc Int : 474 ms Atrial fibrillation with rapid ventricular response Possible Anterior infarct , age undetermined T wave abnormality, consider lateral ischemia or digitalis effect Abnormal ECG When compared with ECG of 03.06.2018 04:46 Vent. rate decreased by 81 BPM Confirmed by Phong Yanes ([id number]) on 03/06/2018 7:57:20 PM Referred By: CAMRON Confirmed By:Phong Woods
--- NOTE | 2018-03-06 06:10 | EKG ---
FACILITY: [facility] - [place] PATIENT NAME: FRANCOIS LLAMAS : [id number] MR: [id number] V: [id number] EXAM DATE: ORDERING PHYSICIAN: GILBERTO LYON TECHNOLOGIST: HC Test Reason : chest tightness Blood Pressure : / mmHG Vent. Rate : 201 BPM Atrial Rate : 201 BPM P-R Int : 112 ms QRS Dur : 080 ms QT Int : 232 ms P-R-T Axes : 093 017 241 degrees QTc Int : 424 ms Sinus tachycardia Anterior infarct , age undetermined Marked ST abnormality, possible inferior subendocardial injury Abnormal ECG When compared with ECG of 02.14.2018 Vent. rate increased by 116 bpm Confirmed by Phong Yanes ([id number]) on 03/06/2018 7:53:01 PM Referred By: CAMRON Confirmed By:Phong Woods
[2018-03-06] MEDS ORDERED: DILT120C18 PO (06:26)
--- NOTE | 2018-03-06 06:40 | RADIOLOGY IMAGING REPORT ---
FAC[place] [facility] [place]IENT NAME: Mala Villela : 1935 MR: [id number] V: [id number] EXAM DATE: ORDERING PHYSICIAN: GILBERTO LYON TECHNOLOGIST: Location: [facility] [place] Patient: Mala Villela : 1935 Visit/Account:[id number] Date of Sevice: 03/06/2018 EXAMINATION: Portable AP Chest HISTORY: Chest pain. COMPARISON: 02/07/2018. FINDINGS: The lungs are hyperinflated with chronic appearing interstitial changes bilaterally. No focal consoli dation or pleural effusion. On the prior exam there were moderate layering pleural effusions with bib asilar infiltrate which have resolved. Borderline cardiac enlargement, with normal pulmonary vascularity. Aortic calcification. Right IJ maximilian tral venous port, with tip near the cavoatrial junction. No acute osseous findings. Old bilateral rib fractures. IMPRESSION: 1. Hyperinflation with chronic appearing interstitial changes. 2. No focal consolidation. Prior bibasilar consolidation and bilateral pleural effusions have resolve d. Report Dictated By: Salvador Amado MD at 03/06/2018 6:32 AM Report E-Signed By: Salvador Amado MD at 03/06/2018 6:36 AM WSN:[id number]
[2018-03-06] MEDS ORDERED: HEPARIN FLSH (PORT) 500 UN/5ML IVP ONE (06:45)
[2018-03-06 06:55] VITALS: BP 108/63
== END 2018-03-06 07:16 | disposition home or self-care (01) ==
LOC: ER 04:52
DX: I48.91 Unspecified atrial fibrillation (principal); R79.89 Other specified abnormal findings of blood chemistry; E11.65 Type 2 diabetes mellitus with hyperglycemia; D46.9 Myelodysplastic syndrome, unspecified; D64.9 Anemia, unspecified
CPT/HCPCS: 36416; 71045; 82948; 83880; 84484; 85025; 93005; 96361; 96374; 96375; 96376; 99284; A9270; J0153; J2405; J3490; J7030; 82040; 82247; 82310; 82374; 82435; 82565; 82947; 84075; 84132; 84155; 84295; 84450; 84460; 84520; J1815

== ENCOUNTER 2018-03-08 17:35 | Inpatient (IN) | payer MEDICARE, OTHER ==
[~2018-03-08] VITALS: Ht 154.9 cm; Wt 65.9 kg
[~2018-03-08 17:35] MED LIST changes: +DILT120C18 PO; +INSU100I8 SUBQ; -RANI75TA5 PO; +RANI75TA51 PO
--- NOTE | 2018-03-08 18:07 | ER Report ---
History and Physical Time Seen By MD: 17:57 Hx. of Stated Complaint: HYPERGLYCEMIA, INCREASED SOB AND INCREASED HEART RATE HPI/ROS CHIEF COMPLAINT: Rapid heart rate, elevated blood sugar HISTORY OF PRESENT ILLNESS: Patient is a very pleasant 82-year-old female who returns to the emergency department for rapid heart rate. Patient states she was seen here on March 06 for very similar presentation of elevated heart rate and elevated blood sugar. Workup at that time showed the patient to have both atrial fibrillation with rapid ventricular response and then ended up having an episode SVT. She converted from SVT back to atrial fibrillation her heart rate responded nicely to diltiazem and she was able to be discharged home with a prescription for diltiazem. She never started taking this medication because she was told by her pharmacist they may want to stop another one of her medications. She made an appointment with her primary care provider, but that is not until next week so she is not started diltiazem yet. Patient began feeling somewhat dizzy this morning and noticed that with even short small movements she is short of breath and has a rapid heart rate. Patient states that her blood sugars have been r unning in the 300s over the last few weeks. He denies any actual chest pain or pressure but does admit to exertional dyspnea. She has a past medical history for myelodysplastic disorder and is followed in oncology. She denies any fevers or chills she denies any recent weight loss. REVIEW OF SYSTEMS: Constitutional: [No fever, no chills.] Eyes: [No discharge.] ENT: [No sore throat.] Cardiovascular: [No chest pain, no palpitations.] Respiratory: [No cough, no shortness of breath.] Gastrointestinal: [No abdominal pain, no vomiting.] Genitourinary: [No hematuria.] Musculoskeletal: [No back pain.] Skin: [No rashes.] Neurological: [No headache.] Allergies: Coded Allergies: meclizine (Verified Allergy, Intermediate, Dizziness, 03/06/18) chlorpheniramine (Verified Allergy, Unknown, 03/06/18) pseudoephedrine (Verified Allergy, Unknown, 03/06/18) Home Meds Active Scripts Insulin Degludec (Tresiba Flextouch U-100) 100 Unit/Ml (3 Ml) Insuln.pen, 10 UNITS SUBQ DAILY, #1 BOX 0 Refills Prov:NITA,ISABEL F MD 03/08/18 Diltiazem Hcl (DILTIAZEM 24HR CD) 120 Mg Cap.er.24h, 120 MG PO DAILY for atrial fibrillation control, #30 Prov:GILBERTO LYON 03/06/18 Lisinopril (LISINOPRIL) 5 Mg Tablet, 5 MG PO DAILY, #90 TAB 1 Refill Prov:ISABEL MOYA MD 02/26/18 Glimepiride (GLIMEPIRIDE) 2 Mg Tablet, 3 TAB PO QDAY, #270 TAB 1 Refill Prov:ISABEL MOYA MD 02/26/18 Furosemide (FUROSEMIDE) 20 Mg Tablet, 1 TAB PO DAILY, #90 TAB 3 Refills Prov:ISABEL MOYA MD 02/25/18 Atorvastatin Calcium (ATORVASTATIN CALCIUM) 10 Mg Tablet, 1 TAB PO QDAY, #90 TAB 3 Refills Prov:ISABEL MOYA MD 02/21/18 Folic Acid (FOLIC ACID) 1 Mg Tablet, 1 MG PO QDAY for low hgb, #90 TAB 3 Refills Prov:ISABEL MOYA MD 09/13/17 Levothyroxine Sodium (LEVOTHYROXINE SODIUM) 75 Mcg Tablet, 1 TAB PO QDAY, #90 TAB 4 Refills Prov:ISABEL MOYA MD 08/30/17 Linaclotide (LINZESS) 145 Mcg Capsule, 1 CAP PO DAILY, #90 CAPSULE 3 Refills Prov:ISABEL MOYA MD 06/29/17 Reported Medications Polyethylene Glycol 8000 (POLYETHYLENE GLYCOL) 500 Gm Powder, 17 GM PO DAILY 02/14/18 Bisacodyl (DULCOLAX) 5 Mg Tablet.dr, 10 MG PO DAILY 02/14/18 Apixaban (ELIQUIS) 5 Mg Tablet, 10 MG PO BID 02/14/18 Saline (AYR SALINE NASAL GEL) 14.1 Gm Gel, 14.1 GM NA DAILY, GEL 07/30/17 Burwell-3 Fatty Acids/Fish Oil (OMEGA 3 1,000 MG SOFTGEL) 1 Each Capsule, 2 EACH PO QDAY, CAPSULE 07/30/17 Nitroglycerin (NITROGLYCERIN) 0.4 Mg Tab.subl, 1 TAB SL Q5MIN PRN for PAIN Max 3 doses. Call 911 if pain is not relieved. 11/09/16 Cyanocobalamin (Vitamin B-12) (Vitamin B12) 2,500 Mcg Tablet, 1 TAB PO DAILY 02/22/16 Guaifenesin (MUCINEX) 600 Mg Tablet.er, PO PRN 04/15/15 Calcium Carbonate (Calcium) 600 Mg Tablet, 1 TAB PO DAILY, 0 Refills 08/11/10 Multivitamins W-Minerals (Multiple Vitamin) 1 Tab Tablet, 1 TAB PO DAILY, 0 Refills 08/11/10 Past Medical/Surgical History Past medical history for sciatica and stroke, history of coronary artery disease, hyperlipidemia, hypertension history of cardiomyopathy in January 2018 ejection fraction was 40% with grade 3 diastolic dysfunction. History of COPD, history of pulmonary embolism in January 2018 currently on a liquid is history of sleep apnea on CPAP. History of gastroesophageal reflux disease, kidney sto xavi, anxiety and depression, insulin-dependent type II diabetes, hypothyroidism, myelodysplasia and hemochromatosis with chronic anemia and leukopenia. Patient receives frequent transfusions every 2 weeks or so. Past surgical history for angioplasty with stent placement in 2016, cholecystectomy, tubal ligation Hx Smoking: No Smoking Status: Never Smoker Exposure to Second Hand Smoke?: Yes (ALL HER LIFE.) Hx Substance Use Disorder: No Hx Alcohol Use: No Constitutional Vital Sign - Last 24 Hours 03/08/18 03/08/18 03/08/18 03/08/18 17:50 17:50 17:55 18:00 Temp 98.5 Pulse 142 144 124 143 Resp 15 20 54 18 B/P (MAP) 91/62 65/52 (56) Pulse Ox 100 100 100 100 O2 Delivery Nasal Cannula 03/08/18 03/08/18 03/08/18 03/08/18 18:05 18:10 18:15 18:20 Pulse 136 133 127 134 Resp 10 15 16 17 B/P (MAP) 104/59 (74) Pulse Ox 100 100 100 100 03/08/18 03/08/18 03/08/18 03/08/18 18:25 18:30 18:35 18:40 Pulse 129 146 147 140 Resp 26 18 11 0 Pulse Ox 100 100 100 100 03/08/18 03/08/18 03/08/18 03/08/18 18:45 18:50 18:55 19:00 Pulse 125 121 116 122 Resp 21 6 17 0 B/P (MAP) 85/55 (65) 101/64 (76) Pulse Ox 98 100 100 100 Physical Exam General/Constitutional: Patient is awake, alert, nontoxic and in no acute respiratory distress. On chronic oxygen Head: Normocephalic and atraumatic. Eyes: Conjunctival pale, is a small subconjunctival hemorrhage 4:00 to the left eye Pupils are equal and reactive to light. Extraocular muscles are intact and symmetrical. Sclera are clear and anicteric. Ears:External canals are clear. Tympanic membranes are clear with normal landmarks and light reflex. Nares: No rhinorrhea or bleeding. Turbinates are pink and moist. Oropharyngeal: Mucous membranes are moist. There is no pharyngeal erythema or exudate. There are no palatal petechiae. Uvula is midline and symmetrical. Neck: Supple, no adenopathy. Cardiovascular: Heart is irregularly irregular and tachycardic with rates between 1:30 and 1 50 bpm. Pulmonary: Lungs are clear to auscultation bilaterally. There are no wheezes, rales, or rhonchi. Chest rise is symmetrical Abdomen: Soft, to print but nontender Extremities: No gross deformities, No peripheral cyanosis. Able to move all 4 extremities. She has 2+ pitting edema to bilateral lower extremities Neuro: Alert and oriented X3, Skin: No rashes, skin is warm dry and well perfused. Medical Decision Making Data Points Result Diagram: 03/08/18180403/08/181804 Laboratory Hematology Test 06/17/15 00:00 03/08/18 18:05 03/08/18 18:45 Neutrophils # 2.6 th/mm3 Hematocrit 9.0 g/dl Hemoglobin 27.4 g/dl Platelet Count 306 th/mm3 White Blood Count 4.2 th/mm3 Albumin 4.7 g/dl 3.6 g/dl (3.5-5.0) Alkaline Phosphatase 77 IU/L 82 U/L (0-126) Alanine Aminotransferase (ALT/SGPT) 25 u/L 55 U/L (0-56) Aspartate Amino Transf (AST/SGOT) 19 gloria/L 29 U/L (0-35) Blood Urea Nitrogen 16 mg/dl 17 mg/dl (7-18) Calcium Level 9.5 mg/dl 9.4 mg/dl (8.4-10.2) Chloride Level 96 mmol/L 98 mmol/L (98-107) Carbon Dioxide Level 26 mmol/L 27 mmol/L (22-31) Creatinine 0.72 mg/dl 0.60 mg/dl (0.52-1.04) Glucose Level 86 mg/dl Potassium Level 4.1 mmol/L 3.7 mmol/L (3.5-5.0) Sodium Level 138 mmol/L 134 mmol/L (137-145) Total Protein 6.4 g/dl 5.5 g/dl (6.3-8.2) Total Bilirubin 0.9 mg/dl 2.3 mg/dl (0.2-1.3) Red Blood Count 2.49 M/uL (4.17-5.56) Mean Corpuscular Volume 100.1 fL (80.0-96.0) Mean Corpuscular Hemoglobin 31.9 pg (26.0-33.0) Mean Corpuscular Hemoglobin Concent 31.9 g/dL (32.0-36.0) Red Cell Distribution Width 21.1 % (11.5-14.5) Mean Platelet Volume 10.5 fL (7.2-11.1) Neutrophils (%) (Auto) 64.0 % (39.4-72.5) Lymphocytes (%) (Auto) 21.2 % (17.6-49.6) Monocytes (%) (Auto) 11.8 % (4.1-12.4) Eosinophils (%) (Auto) 0.7 % (0.4-6.7) Basophils (%) (Auto) 2.3 % (0.3-1.4) Nucleated RBC Relative Count (auto) 0.1 /100WBC Neutrophils # (Auto) 1.5 K/uL (2.0-7.4) Lymphocytes # (Auto) 0.5 K/uL (1.3-3.6) Monocytes # (Auto) 0.3 K/uL (0.3-1.0) Eosinophils # (Auto) 0.0 K/uL (0.0-0.5) Basophils # (Auto) 0.1 K/uL (0.0-0.1) Nucleated RBC Absolute Count (auto) 0.00 K/uL Peripheral Blood Smear Y/N Prothrombin Time 22.7 seconds (12.0-14.4) Prothromb Time International Ratio 1.96 Activated Partial Thromboplast Time 62 seconds (23-35) Glomerular Filtration Rate Calc > 60.0 Whole Blood Glucose 422 mg/DL (75-110) Random Glucose 395 mg/dl (75-110) Troponin I 0.027 ng/ml B-Type Natriuretic Peptide 669 pg/ml (0-100) Stool Occult Blood (IFOB) Negative (NEGATIVE) Chemistry Test 06/17/15 00:00 03/08/18 18:05 03/08/18 18:45 Neutrophils # 2.6 th/mm3 Hematocrit 9.0 g/dl 25.0 % (34.0-47.0) Hemoglobin 27.4 g/dl 8.0 g/dL (12.0-16.0) Platelet Count 306 th/mm3 138 K/uL (150-450) White Blood Count 4.2 th/mm3 2.4 k/uL (4.5-11.0) Albumin 4.7 g/dl 3.6 g/dl (3.5-5.0) Alkaline Phosphatase 77 IU/L 82 U/L (0-126) Alanine Aminotransferase (ALT/SGPT) 25 u/L 55 U/L (0-56) Aspartate Amino Transf (AST/SGOT) 19 gloria/L 29 U/L (0-35) Blood Urea Nitrogen 16 mg/dl Calcium Level 9.5 mg/dl 9.4 mg/dl (8.4-10.2) Chloride Level 96 mmol/L Carbon Dioxide Level 26 mmol/L Creatinine 0.72 mg/dl Glucose Level 86 mg/dl Potassium Level 4.1 mmol/L Sodium Level 138 mmol/L Total Protein 6.4 g/dl 5.5 g/dl (6.3-8.2) Total Bilirubin 0.9 mg/dl 2.3 mg/dl (0.2-1.3) Red Blood Count 2.49 M/uL (4.17-5.56) Mean Corpuscular Volume 100.1 fL (80.0-96.0) Mean Corpuscular Hemoglobin 31.9 pg (26.0-33.0) Mean Corpuscular Hemoglobin Concent 31.9 g/dL (32.0-36.0) Red Cell Distribution Width 21.1 % (11.5-14.5) Mean Platelet Volume 10.5 fL (7.2-11.1) Neutrophils (%) (Auto) 64.0 % (39.4-72.5) Lymphocytes (%) (Auto) 21.2 % (17.6-49.6) Monocytes (%) (Auto) 11.8 % (4.1-12.4) Eosinophils (%) (Auto) 0.7 % (0.4-6.7) Basophils (%) (Auto) 2.3 % (0.3-1.4) Nucleated RBC Relative Count (auto) 0.1 /100WBC Neutrophils # (Auto) 1.5 K/uL (2.0-7.4) Lymphocytes # (Auto) 0.5 K/uL (1.3-3.6) Monocytes # (Auto) 0.3 K/uL (0.3-1.0) Eosinophils # (Auto) 0.0 K/uL (0.0-0.5) Basophils # (Auto) 0.1 K/uL (0.0-0.1) Nucleated RBC Absolute Count (auto) 0.00 K/uL Peripheral Blood Smear Y/N Prothrombin Time 22.7 seconds (12.0-14.4) Prothromb Time International Ratio 1.96 Activated Partial Thromboplast Time 62 seconds (23-35) Glomerular Filtration Rate Calc > 60.0 Whole Blood Glucose 422 mg/DL (75-110) Troponin I 0.027 ng/ml B-Type Natriuretic Peptide 669 pg/ml (0-100) Stool Occult Blood (IFOB) Negative (NEGATIVE) Coagulation Test 03/08/18 18:05 Prothrombin Time 22.7 seconds Prothromb Time International Ratio 1.96 Activated Partial Thromboplast Time 62 seconds EKG/Imaging EKG Interpretation EKG shows atrial fibrillation with rapid ventricular response with rate of approximately 153 bpm. Monitor Interpretation: Atrial Fibrillation (with RVR) Imaging FACILITY: PATIENT NAME: Mala Villela : 1935 MR: [id number] V: [id number] EXAM DATE: [id number] ORDERING PHYSICIAN: BOBY CABAN TECHNOLOGIST: Location: [facility] [place] Patient: Mala Villela : 1935 Visit/Account:[id number] Date of Sevice: 03/08/2018 CHEST SINGLE AP Indication: Chest pain.. Comparison: 03/06/2018. Findings: Cardiac silhouettes upper limits normal for size for the technique and unchanged. Mediastinal silhouette and pulmonary vessels within normal limits. Right Port-A-Cath is in place with the tip in SVC and unchanged. There is no focal infiltrate or lobar consolidation. No pneumothorax or pleural effusion. No nodule. Upper abdomen is unremarkable. No acute bony abnormality. Bilateral old rib fractures. IMPRESSION: 1. No acute cardiopulmonary process. Report Dictated By: Yordy Mckee at 03/08/2018 7:03 PM Report E-Signed By: Yordy Mckee at 03/08/2018 7:04 PM WSN:[id number] ED Course/Re-evaluation Clinical Indication for ER IV: IV Access ED Course 03/08/2018 6:27:34 pm patient has a complex medical history specifically both pulmonary and cardiac-hernandez. Patient was just seen in the emergency department 2 days ago for almost a similar type episode was discharged home on diltiazem which the patient did not take. Blood sugars have been running over 300+ for weeks. Patient does live by herself. She states that with exertion she's been feeling dizzy and exertionally short of breath. Plan at this time will be cardiac workup. We will perform a single troponin we will check a BNP. Patient's last hemoglobin was 9.3 on March 06. Today it is 8.0. We'll perform Hemoccult of stool at this time. Concern is that patient although well very pleasant and oriented did not follow through with her medical plan on the she also lives by herself and blood sugars have been uncontrolled for some time now. We will complete the workup and I will call for possible admission. 03/08/2018 6:51:19 pm I spoke with Dr. Anand Pascal who is the on-call hospitalist. History physical exam all pertinent lab data imaging studies and ED course were reviewed. It was decided to bring the patient in for admission secondary to A. fib with rapid ventricular response along with hyperglycemia. Patient is agreeable to disposition Decision to Disposition Date: Mar 08, 2018 Decision to Disposition Time: 18:51 Depart Departure Latest Vital Signs Vital Signs Date Time Temp Pulse Resp B/P (MAP) Pulse Ox O2 Delivery O2 Flow Rate FiO2 03/08/18 19:00 122 0 101/64 (76) 100 03/08/18 17:50 98.5 Nasal Cannula Impression: Primary Impression: Hyperglycemia Additional Impression: Atrial fibrillation with RVR Condition: Condition Unchanged Disposition: Admitted from ER (to Kumar Pascal) Referrals: ISABEL MOYA MD (PCP) Problem Qualifiers BOBY CABAN MD Mar 08, 2018 18:07
[2018-03-08] MEDS ORDERED: DILTIAZEM HCL* 100 MG ADDVIAL 100 MG in NS(*) 0.9% 100 ML ADDVANT BAG 100 ML IV SCH (18:10)
[2018-03-08] MEDS ORDERED: NS(*) 0.9% 500 ML BAG 500 ML IV ONE (18:10)
[2018-03-08] MEDS ORDERED: DILTIAZEM 5 MG/ML 5ML IVPUSH IVP ONE (18:10)
--- NOTE | 2018-03-08 18:16 | EKG ---
FACILITY: [facility] PATIENT NAME: FRANCOIS LLAMAS : [id number] MR: [id number] V: [id number] EXAM DATE: ORDERING PHYSICIAN: BOBY CABAN TECHNOLOGIST: PRINCESS Test Reason : HIGH BLOOD SUGAR Blood Pressure : / mmHG Vent. Rate : 153 BPM Atrial Rate : 111 BPM P-R Int : 000 ms QRS Dur : 084 ms QT Int : 288 ms P-R-T Axes : 000 001 186 degrees QTc Int : 459 ms Atrial fibrillation with rapid ventricular response ST and T wave abnormality, consider inferolateral ischemia Abnormal ECG Confirmed by AMARJIT GODOY ([id number] on 03/08/2018 9:18:11 PM Referred By: NAVIN Confirmed By:AMARJIT GODOY
[2018-03-08 18:25] LABS: PLATELET COUNT, AUTOMATED 138 K/uL (150-450)
[2018-03-08 18:38] LABS: INR 1.96
[2018-03-08] MEDS ORDERED: INSU HUM REG 100 U/ML(ER ONLY) 10 ML VIAL SUBQ ONE (18:40)
--- NOTE | 2018-03-08 19:08 | RADIOLOGY IMAGING REPORT ---
FACILITY: [facility] PATIENT NAME: Mala Villela : 1935 MR: [id number] V: [id number] EXAM DATE: ORDERING PHYSICIAN: BOBY CABAN TECHNOLOGIST: Location: [facility] - [place] Patient: Mala Villela : 1935 Visit/Account:[id number] Date of Sevice: 03/08/2018 CHEST SINGLE AP Indication: Chest pain.. Comparison: 03/06/2018. Findings: Cardiac silhouettes upper limits normal for size for the technique and unchanged. Mediastinal silhoue tte and pulmonary vessels within normal limits. Right Port-A-Cath is in place with the tip in SVC and unchanged. There is no focal infiltrate or lobar consolidation. No pneumothorax or pleural effusion. No nodule. Upper abdomen is unremarkable. No acute bony abnormality. Bilateral old rib fractures. IMPRESSION: 1. No acute cardiopulmonary process. Report Dictated By: Yordy Mckee at 03/08/2018 7:03 PM Report E-Signed By: Yordy Mckee at 03/08/2018 7:04 PM WSN:[id number]
[2018-03-08 19:45] VITALS: BP 99/66
[2018-03-08] MEDS ORDERED: NS(*) 0.9% 500 ML BAG 500 ML ONE (19:55)
[2018-03-08 20:20] VITALS: BP 95/54
[2018-03-08] MEDS ORDERED: DIGOXIN 0.5 MG/2 ML AMP IVP ONE (20:25)
--- NOTE | 2018-03-08 20:43 | History & Physical ---
History of Present Illness Chief Complaint Short of breath History of Present Illness 82yo female with PMHx significant for PE, CAD, CHF with reported EF 40%, a-fib, myelodysplasia with anemia requiring frequent transfusion, type 2 DM. She report s increasing dyspnea over the past several days. She has had awareness of her heart racing at times. She was found to be in atrial fibrillation in the ER a few days ago and started on oral diltiazem. She did not, however, start the medication as of yet. This evening she noted she was more dyspneic and intolerant of activities. She denied CP. She did notice increased edema of her legs/feet. She denied cough or sputum production. She denied fevers or chills. She was evaluated in the ER and found to have worsening anemia, elevated glucoses, and was also in a-fib with RVR. She was recommended for admission. History Problems: (1) Hyperlipidemia Status: Chronic (2) Pulmonary embolism Status: Chronic (3) Cardiomyopathy Status: Chronic (4) Atrial fibrillation with RVR Status: Acute (5) Myelodysplastic syndrome, unspecified Status: Chronic (6) Hypothyroidism Status: Chronic (7) Esophageal reflux Status: Chronic (8) Iron overload due to repeated red blood cell transfusions Status: Chronic (9) Hypertension Status: Chronic (10) Hypothyroidism Status: Chronic (11) Type II diabetes mellitus Status: Chronic (12) BIJAL on CPAP Status: Chronic (13) Constipation Status: Chronic (14) DJD (degenerative joint disease), lumbar Status: Chronic (15) Osteopenia Status: Chronic (16) Coronary artery disease of [place] artery of [place] heart with stable angina pectoris Status: Chronic Home Meds Active Scripts Insulin Degludec (Tresiba Flextouch U-100) 100 Unit/Ml (3 Ml) Insuln.pen, 10 UNITS SUBQ DAILY, #1 BOX 0 Refills Prov:ISABEL MOYA MD 03/08/18 Diltiazem Hcl (DILTIAZEM 24HR CD) 120 Mg Cap.er.24h, 120 MG PO DAILY for atrial fibrillation control, #30 Prov:GILBERTO LYON DO 03/06/18 Lisinopril (LISINOPRIL) 5 Mg Tablet, 5 MG PO DAILY, #90 TAB 1 Refill Prov:ISABEL MOYA MD 02/26/18 Glimepiride (GLIMEPIRIDE) 2 Mg Tablet, 3 TAB PO QDAY, #270 TAB 1 Refill Prov:ISABEL MOYA MD 02/26/18 Furosemide (FUROSEMIDE) 20 Mg Tablet, 1 TAB PO DAILY, #90 TAB 3 Refills Prov:ISABEL MOYA MD 02/25/18 Atorvastatin Calcium (ATORVASTATIN CALCIUM) 10 Mg Tablet, 1 TAB PO QDAY, #90 TAB 3 Refills Prov:ISABEL MOYA MD 02/21/18 Folic Acid (FOLIC ACID) 1 Mg Tablet, 1 MG PO QDAY for low hgb, #90 TAB 3 Refills Prov:ISABEL MOYA MD 09/13/17 Levothyroxine Sodium (LEVOTHYROXINE SODIUM) 75 Mcg Tablet, 1 TAB PO QDAY, #90 TAB 4 Refills Prov:ISABEL MOYA MD 08/30/17 Linaclotide (LINZESS) 145 Mcg Capsule, 1 CAP PO DAILY, #90 CAPSULE 3 Refills Prov:ISABEL MOYA MD 06/29/17 Reported Medications Polyethylene Glycol 8000 (POLYETHYLENE GLYCOL) 500 Gm Powder, 17 GM PO DAILY 02/14/18 Bisacodyl (DULCOLAX) 5 Mg Tablet.dr, 10 MG PO DAILY 02/14/18 Apixaban (ELIQUIS) 5 Mg Tablet, 10 MG PO BID 02/14/18 Saline (AYR SALINE NASAL GEL) 14.1 Gm Gel, 14.1 GM NA DAILY, GEL 07/30/17 [place]on-3 Fatty Acids/Fish Oil (OMEGA 3 1,000 MG SOFTGEL) 1 Each Capsule, 2 EACH PO QDAY, CAPSULE 07/30/17 Nitroglycerin (NITROGLYCERIN) 0.4 Mg Tab.subl, 1 TAB SL Q5MIN PRN for PAIN Max 3 doses. Call 911 if pain is not relieved. 11/09/16 Cyanocobalamin (Vitamin B-12) (Vitamin B12) 2,500 Mcg Tablet, 1 TAB PO DAILY 02/22/16 Guaifenesin (MUCINEX) 600 Mg Tablet.er, PO PRN 04/15/15 Calcium Carbonate (Calcium) 600 Mg Tablet, 1 TAB PO DAILY, 0 Refills 08/11/10 Multivitamins W-Minerals (Multiple Vitamin) 1 Tab Tablet, 1 TAB PO DAILY, 0 Refills 4/14/11 Allergies: Coded Allergies: meclizine (Verified Allergy, Intermediate, Dizziness, 03/06/18) chlorpheniramine (Verified Allergy, Unknown, 03/06/18) pseudoephedrine (Verified Allergy, Unknown, 03/06/18) Patient History: FH: HTN (hypertension) MOTHER, , Age:81 FH: diabetes mellitus FATHER, , Age:49 BROTHER OR SISTER, FH: leukemia TWIN SISTER FH: prostate cancer FATHER, , Age:49 BROTHER OR SISTER, FH: stroke MOTHER, , Age:81 Hx Smoking: No Smoking Status: Never Smoker Exposure to Second Hand Smoke?: Yes (ALL HER LIFE.) Caffeine Intake: Tea Caffeine/Cups Per Day: 1-2 Hx Alcohol Use: No Hx Substance Use Disorder: No Social Drug Use: Never Review of Systems Constitutional: No Fever, No Chills Neurological: Weakness Eyes: No Vision Change, No Loss of Vision Cardiovascular: Palpitations; No Chest Pain Respiratory: Shortness of Breath; No Cough Gastrointestinal: No Nausea, No Vomiting, No Diarrhea, No Hematemesis, No Hematochezia, No Melena Exam Vital Signs Vital Signs Date Time Temp Pulse Resp B/P (MAP) Pulse Ox O2 Delivery O2 Flow Rate FiO2 03/08/18 19:25 131 22 100 03/08/18 19:15 103/40 (61) 03/08/18 17:50 98.5 Nasal Cannula General Appearance: Alert, Awake Neuro: No Gross deficits Eyes: PERRLA ENT: Oropharynx Clear Neck: No Masses Cardiovascular: Other (Irregular tachycardic with distant tones) Respiratory: Clear to Auscultation Chest: No Tenderness, Other (Port right upper chest) GI: Abd Soft and Non-Tender : No CVA Tenderness Extremities: Warm, Perfused, Edema (2+ both LE below the knees) Integumentary: Generalized Fragile Skin Psych: Alert & Oriented X3 Medical Decision Making Data Points Result Diagram: 03/08/18180403/08/181804 Item Value Date Time Albumin 3.6 g/dl 03/08/181804 Total Protein 5.5 g/dl L 03/08/181804 B-Type Natriuretic Peptide 669 pg/ml H 03/08/181804 Troponin I 0.027 ng/ml 03/08/181804 Alkaline Phosphatase 82 U/L 11/9/18 1805 Alanine Aminotransferase (ALT/SGPT) 55 U/L 03/08/18 1805 Aspartate Amino Transf (AST/SGOT) 29 U/L 03/08/18 180 Total Bilirubin 2.3 mg/dl H 03/08/18 180 Calcium Level 9.4 mg/dl 03/08/18 180 Stool Occult Blood (IFOB) Negative 03/08/18 1845 Activated Partial Thromboplast Time 62 seconds H 03/08/18 180 Prothromb Time International Ratio 1.96 03/08/18 180 Prothrombin Time 22.7 seconds H 03/08/18 180 EKG / Imaging Imaging PATIENT NAME: Mala Villela : 1935 MR: [id number] V: [id number] EXAM DATE: [id number] ORDERING PHYSICIAN: BOBY CABAN TECHNOLOGIST: Location: [facility] [place] Patient: Mala Villela : 1935 Visit/Account:[id number] Date of Sevice: 03/08/2018 CHEST SINGLE AP Indication: Chest pain.. Comparison: 03/06/2018. Findings: Cardiac silhouettes upper limits normal for size for the technique and unchanged. Mediastinal silhouette and pulmonary vessels within normal limits. Right Port-A-Cath is in place with the tip in SVC and unchanged. There is no focal infiltrate or lobar consolidation. No pneumothorax or pleural effusion. No nodule. Upper abdomen is unremarkable. No acute bony abnormality. Bilateral old rib fractures. IMPRESSION: 1. No acute cardiopulmonary process. Report Dictated By: Yordy Mckee at 03/08/2018 7:03 PM Report E-Signed By: Yordy Mckee at 03/08/2018 7:04 PM [id number] Assessment and Plan Problems: (1) Atrial fibrillation with RVR Status: Acute Assessment & Plan: She has had recurrent atrial fibrillation with rapid ventri cular response. She wa sstarted on IV diltiazem in the ER, but has been modestly hypotensive with it. Will stop it in favor of digoxin. Will give IV loading tonight to get better rate control and hopefully avoid any further hypotension. She is currently on Eliquis at 10mg PO BID, but should be able to decrease to 5mg PO BID. I suspect she may have been on the higher dose as she was diagnosed with PE about 3-4 weeks ago. Will check echocardiogram as well as TSH. Monitor closely on telemetry. (2) Cardiomyopathy Status: Chronic Assessment & Plan: She has been diagnosed with reduced EF (40%) heart failure, but we do not have a recent echocardiogram. Will check echo. We may need further modification of her medication regimen based on her results. (3) Pulmonary embolism Status: Chronic Assessment & Plan: It appears she had at least one week of the higher dose El iquis (10mg BID). Will now change to 5mg BID. (4) Myelodysplastic syndrome, unspecified Status: Chronic Assessment & Plan: She has been requiring fairly frequent transfusion (about every 2-3 weeks). Her Hgb is now at 8.0 and this may be exacerbating the CHF and a-fib as well. Will transfuse 2 units today. (5) Hypothyroidism Status: Chronic Assessment & Plan: Continue replacement. Check TSH. (6) BIJAL on CPAP Status: Chronic Assessment & Plan: Continue CPAP. (7) Type II diabetes mellitus Status: Chronic Assessment & Plan: Her glucoses have been somewhat uncontrolled. She did receive some insulin in the ER. Will continue her Amaryl 6mg PO daily. Will switch from Tresiba (not on formulary) to Lantus while she is here. Continue ADA diet. Monitor glucoses. Use SSI as needed. Copies to: ISABEL MOYA MD ; Venous Thromboembolism Antithrombotics Is Pt On Any Antithrombotics?: Yes Exam Sepsis Risk: No Definite Risk AMARJIT GODOY MD Mar 08, 2018 20:43
[2018-03-08] MEDS ORDERED: INFLUENZA VIRUS VAC 0.5ML SYR IM ONLY ONE (21:00)
[2018-03-08] MEDS ORDERED: FLUSH 10 ML SYR IVP PRN (21:00)
[2018-03-08] MEDS: APIXABAN 2.5 MG TABLET PO SCH (22:01)
[2018-03-08 22:32] VITALS: BP 96/60
[2018-03-08 22:48] VITALS: BP 100/50
[2018-03-08 23:08] VITALS: BP 100/52
[2018-03-09] VITALS (8 sets, daily range): BP systolic 94–144; BP diastolic 56–72; BMI 27.4
[2018-03-09] MEDS: DIGOXIN 0.5 MG/2 ML AMP IVP SCH ×2 (02:43→08:52)
[2018-03-09 05:41] LABS: PLATELET COUNT, AUTOMATED 112 K/uL (150-450)
[2018-03-09] MEDS: LEVOTHYROXINE SOD 0.075 MG TAB PO SCH (05:59)
[2018-03-09] MEDS ORDERED: MAGNESIUM SUL* 2 GM/50 ML IVPB 50 ML IVPB ONE (07:50)
[2018-03-09] MEDS ORDERED: BISACODYL 10 MG SUPP PR PRN (08:15)
[2018-03-09] MEDS ORDERED: MAGNESIUM HYDROXIDE* 30ML UDCP PO PRN (08:15)
[2018-03-09] MEDS: GLIMEPIRIDE 2 MG TAB PO SCH (08:52)
[2018-03-09] MEDS: APIXABAN 2.5 MG TABLET PO SCH ×2 (08:53→20:44)
[2018-03-09] MEDS: POLYETHYLENE GLYCOL 17 GM PKT PO SCH (08:53)
[2018-03-09] MEDS: PATIENT'S OWN MED PO SCH (08:53)
[2018-03-09] MEDS: FOLIC ACID 1 MG TAB PO SCH (08:53)
[2018-03-09] MEDS ORDERED: INSULIN GLARGINE 100 U/ML 3 ML PEN SUBQ SCH (09:00)
--- NOTE | 2018-03-09 09:09 | Hospitalist Progress Note ---
Subjective Progress Notes Subjective The patient c/o constipation. She has chronic issues and has been on Linzess at home. Per Dr. Curtis's note it is still listed as an active med, but the patient states she is not taking it because it hasn't helped much. She states she has been impacted many times before. Physical Exam Vital Signs Date Time Temp Pulse Resp B/P (MAP) Pulse Ox O2 Delivery O2 Flow Rate FiO2 03/09/18 05:22 76 20 111/63 (79) 98 Nasal Cannula 1.0 03/09/18 03:19 97.8 Intake and Output 03/09/18 06:59 Intake Total 1604.9 ml Balance 1604.9 ml Intake Oral 800 ml IV Total 9.9 ml Blood Product 795 ml # Voids 5 General Appearance: Awake, No Acute Distress, Afebrile Neuro: No Gross deficits Cardiovascular: Regular Rate and Rhythm Respiratory: Clear to Auscultation (Anteriorly.) Chest: Other (Port in place right upper chest without redness or drainage. ) GI: Other (Soft, BS +, tender in the LLQ to palpation.) Extremities: Warm, Perfused, Edema (3+ to mid-hernandez. ) Integumentary: Skin Intact without Lesion / Mass Psych: Alert & Oriented X3, Appropriate Mood & Affect Result Diagram: 03/09/1818 03/09/18517 Item Value Date Time Calcium Level 9.1 mg/dl 03/09/18517 Magnesium Level 1.4 mg/dl L 03/09/18517 Total Bilirubin 3.7 mg/dl H 03/09/18517 Aspartate Amino Transf (AST/SGOT) 31 U/L 03/09/18517 Alanine Aminotransferase (ALT/SGPT) 54 U/L 03/09/18517 Alkaline Phosphatase 54 U/L 03/09/18517 Troponin I 0.037 ng/ml 03/09/18517 Total Protein 4.9 g/dl L 03/09/18517 Albumin 3.0 g/dl L 03/09/18517 Monitor Interpretation: Normal Sinus Rhythm Assessment and Plan Problems: (1) Atrial fibrillation with RVR Status: Acute Assessment & Plan: She has had recurrent atrial fibrillation with rapid ventricular response. She was started on IV diltiazem in the ER, but has been modestly hypotensive with it. Will stop it in favor of digoxin. Was given IV loading overnight to get better rate control and she is no longer hypotensive. She is currently on Eliquis at 10mg PO BID, but should be able to decrease to 5mg PO BID. I suspect she may have been on the higher dose as she was diagnosed with PE about 3-4 weeks ago. Echocardiogram results as below (done at [facility] one mo. ago). TSH has been ordered. Monitor closely on telemetry. (2) Cardiomyopathy Status: Chronic Assessment & Plan: She has been diagnosed with reduced EF (40%) heart failure. Recent echocardiogram done at [facility] shows EF of 40% with global decreased s ystolic function globally. Right sided pressure was 55-60mmHg. She has 3/4 diastolic dysfunction. Severe mitral regurgitation was noted as well. She has severe biatrial enlargement. (Echo report in EMR). Will check echo. We may need further modification of her medication regimen based on her results. (3) Pulmonary embolism Status: Chronic Assessment & Plan: It appears she had at least one week of the higher dose Eliquis (10mg BID). Will now change to 5mg BID. (4) Myelodysplastic syndrome, unspecified Status: Chronic Assessment & Plan: She has been requiring fairly frequent transfusion (about every 2-3 weeks). Her Hgb was 8.0 on admission and she was transfused 2 units PRBCs. (5) Hypothyroidism Status: Chronic Assessment & Plan: Continue replacement. TSH pending. (6) BIJAL on CPAP Status: Chronic Assessment & Plan: Continue CPAP. (7) Type II diabetes mellitus Status: Chronic Assessment & Plan: Her glucoses have been somewhat uncontrolled. She did receive some insulin in the ER. Will continue her Amaryl 6mg PO daily. Dr. Curtis had recently ordered Tresiba (not on formulary) but the patient states she had not yet started it. Will monitor how much insulin needed per SSI, and can add Lantus if needed here. Continue ADA diet. Monitor glucoses. Time Spent on Plan of Care: < 30 min Exam Sepsis Risk: No Definite Risk CLARISSA GODOY MD Mar 09, 2018 09:09
[2018-03-09] MEDS: DOCUSATE SODIUM 100 MG CAP PO SCH ×2 (09:17→20:44)
[2018-03-09] MEDS ORDERED: NS(*) 0.9% 250 ML BAG 250 ML ONE (09:25)
[2018-03-09] MEDS: INSULIN HUM LISPRO 100 UN/ML 3 ML VIAL SUBQ PRN ×3 (12:27→20:44)
[2018-03-10 03:25] VITALS: BP 114/80
[2018-03-10] MEDS: LEVOTHYROXINE SOD 0.075 MG TAB PO SCH (06:05)
[2018-03-10 06:11] LABS: PLATELET COUNT, AUTOMATED 126 K/uL (150-450)
[2018-03-10 07:17] VITALS: BP 116/66
[2018-03-10] MEDS: FUROSEMIDE 20 MG TAB PO SCH ×3 (09:00→09:23)
[2018-03-10] MEDS ORDERED: DIGOXIN 0.125 MG TAB PO SCH (09:00)
[2018-03-10] MEDS ORDERED: CALCIUM CARBONATE 600 MG TAB PO SCH (09:00)
[2018-03-10] MEDS: PATIENT'S OWN MED PO SCH (09:00)
[2018-03-10] MEDS: DOCUSATE SODIUM 100 MG CAP PO SCH (09:12)
[2018-03-10] MEDS: FOLIC ACID 1 MG TAB PO SCH (09:12)
[2018-03-10] MEDS: GLIMEPIRIDE 2 MG TAB PO SCH (09:13)
[2018-03-10] MEDS: POLYETHYLENE GLYCOL 17 GM PKT PO SCH (09:13)
[2018-03-10] MEDS: APIXABAN 2.5 MG TABLET PO SCH (09:13)
[2018-03-10 09:22] VITALS: BP 108/52
[2018-03-10] MEDS ORDERED: HEPARIN FLSH (PORT) 500 UN/5ML IVP ONE (10:25)
[2018-03-10 11:48] VITALS: Ht 154.9 cm; Wt 65.9 kg
[2018-03-10] MEDS: INSULIN HUM LISPRO 100 UN/ML 3 ML VIAL SUBQ PRN (12:01)
[2018-03-10] MEDS ORDERED: DIGO125T90 PO (12:22)
--- NOTE | 2018-03-10 12:27 | Hospitalist Depart ---
Discharge Summary Reason for Hosp/Final Diag: (1) Atrial fibrillation with RVR Status: Acute Hospital Course & Plan: She has had recurrent atrial fibrillation with rapid ventricular response. She was started on IV diltiazem in the ER, but has been modestly hypotensive with it. Stopped in favor of digoxin. Was given IV loading overnight to get better rate control and she is no longer hypotensive. She is currently on Eliquis at 10mg PO BID, but should be able to decrease to 5mg PO BID. I suspect she may have been on the higher dose as she was diagnosed with PE about 3-4 weeks ago. Echocardiogram results as below (done at [facility] one mo. ago). Recommend recheck TSH outpatient. Decreased Eliquis dose and started digoxin. (2) Cardiomyopathy Status: Chronic Hospital Course & Plan: She has been diagnosed with reduced EF (40%) heart failure. Recent echocardiogram done at [facility] shows EF of 40% with global decreased systolic function globally. Right sided pressure was 55-60mmHg. She has 3/4 diastolic dysfunction. Severe mitral regurgitation was noted as well. She has severe biatrial enlargement. (Echo report in EMR). (3) Pulmonary embolism Status: Chronic Hospital Course & Plan: It appears she had at least one week of the higher dose Eliquis (10mg BID). Decreased to 5mg BID. (4) Myelodysplastic syndrome, unspecified Status: Chronic Hospital Course & Plan: She has been requiring fairly frequent transfusion (about every 2-3 weeks). Her Hgb was 8.0 on admission and she was transfused 2 units PRBCs. [facility]. (5) Hypothyroidism Status: Chronic Hospital Course & Plan: Continue replacement. (6) BIJAL on CPAP Status: Chronic Hospital Course & Plan: Continue CPAP. (7) Type II diabetes mellitus Status: Chronic Hospital Course & Plan: Her glucoses have been somewhat uncontrolled. She did receive some insulin in the ER. Will continue her Amaryl 6mg PO daily. Dr. Curtis had recently ordered Tresiba (not on formulary) but the patient states she had not yet started it. ADA diet, follow up tomorrow with PCP as previously scheduled. Departure Weight (Pounds): 145 Weight (Ounces): 6.0 Result Diagram: 03/10/1844 03/10/18543 Condition: Improved Discharge Instructions Home Meds Active Scripts Lisinopril (LISINOPRIL) 5 Mg Tablet, 5 MG PO DAILY, #90 TAB 1 Refill Prov:ISABEL CURTIS MD 02/26/18 Glimepiride (GLIMEPIRIDE) 2 Mg Tablet, 3 TAB PO QDAY, #270 TAB 1 Refill Prov:ISABEL CURTIS MD 02/26/18 Furosemide (FUROSEMIDE) 20 Mg Tablet, 1 TAB PO DAILY, #90 TAB 3 Refills Prov:ISABEL CURTIS MD 02/25/18 Atorvastatin Calcium (ATORVASTATIN CALCIUM) 10 Mg Tablet, 1 TAB PO QDAY, #90 TAB 3 Refills Prov:ISABEL CURTIS MD 02/21/18 Folic Acid (FOLIC ACID) 1 Mg Tablet, 1 MG PO QDAY for low hgb, #90 TAB 3 Refills Prov:ISABEL CURTIS MD 09/13/17 Levothyroxine Sodium (LEVOTHYROXINE SODIUM) 75 Mcg Tablet, 1 TAB PO QDAY, #90 TAB 4 Refills Prov:ISABEL CURTIS MD 08/30/17 Linaclotide (LINZESS) 145 Mcg Capsule, 1 CAP PO DAILY, #90 CAPSULE 3 Refills Prov:ISABEL CURTIS MD 06/29/17 Reported Medications Polyethylene Glycol 8000 (POLYETHYLENE GLYCOL) 500 Gm Powder, 17 GM PO DAILY 02/14/18 Bisacodyl (DULCOLAX) 5 Mg Tablet.dr, 10 MG PO DAILY 02/14/18 Apixaban (ELIQUIS) 5 Mg Tablet, 10 MG PO BID 02/14/18 Saline (AYR SALINE NASAL GEL) 14.1 Gm Gel, 14.1 GM NA DAILY, GEL 07/30/17 Roland-3 Fatty Acids/Fish Oil (OMEGA 3 1,000 MG SOFTGEL) 1 Each Capsule, 2 EACH PO QDAY, CAPSULE 07/30/17 Cyanocobalamin (Vitamin B-12) (Vitamin B12) 2,500 Mcg Tablet, 1 TAB PO DAILY 02/22/16 Guaifenesin (MUCINEX) 600 Mg Tablet.er, PO PRN 04/15/15 Calcium Carbonate (Calcium) 600 Mg Tablet, 1 TAB PO DAILY, 0 Refills 08/11/10 Multivitamins W-Minerals (Multiple Vitamin) 1 Tab Tablet, 1 TAB PO DAILY, 0 Refills 08/11/10 Discontinued Reported Medications Nitroglycerin (NITROGLYCERIN) 0.4 Mg Tab.subl, 1 TAB SL Q5MIN PRN for PAIN Max 3 doses. Call 911 if pain is not relieved. 11/09/16 Discontinued Scripts Insulin Degludec (Tresiba Flextouch U-100) 100 Unit/Ml (3 Ml) Insuln.pen, 10 UNITS SUBQ DAILY, #1 BOX 0 Refills Prov:ISABEL CURTIS MD 03/08/18 Diltiazem Hcl (DILTIAZEM 24HR CD) 120 Mg Cap.er.24h, 120 MG PO DAILY for atrial fibrillation control, #30 Prov:GILBERTO LYON DO 03/06/18 Diet: Diabetic Activity: As Tolerated Copies to: DORA SIMON MD; ISABEL CURTIS MD ; Venous Thromboembolism Antithrombotics Is Pt On Any Antithrombotics?: Yes KEVIN CULLEN DO Mar 10, 2018 12:27
[2018-03-10 13:25] VITALS: BP 126/59
[2018-03-10] MEDS ORDERED: ATORVASTATIN 10 MG TAB PO SCH (21:00)
[2018-03-11] MEDS ORDERED: INSU100I8 SUBQ ×2 (11:35→13:03)
[2018-03-12] MEDS ORDERED: NEED-498 MC (14:50)
[2018-03-12] MEDS ORDERED: LANI SUBQ (14:50)
== END 2018-03-10 14:36 | disposition home or self-care (01) | DRG 309 ==
LOC: ER 17:58 → MED 19:03
PROVIDERS: ADMIT Internal Medicine; ATTEND Internal Medicine
PROC: 5A09357 Assistance with Respiratory Ventilation, Less than 24 Consecutive Hours, Continuous Positive Airway Pressure (ICD-10-PCS; 2018-03-09)
PROC: 30233N1 Transfusion of Nonautologous Red Blood Cells into Peripheral Vein, Percutaneous Approach (ICD-10-PCS; principal; 2018-03-10)
DX: I48.0 Paroxysmal atrial fibrillation (principal); I50.22 Chronic systolic (congestive) heart failure; G47.33 Obstructive sleep apnea (adult) (pediatric); E11.65 Type 2 diabetes mellitus with hyperglycemia; T46.1X5A Adverse effect of calcium-channel blockers, initial encounter; I42.9 Cardiomyopathy, unspecified; I34.0 Nonrheumatic mitral (valve) insufficiency; D46.9 Myelodysplastic syndrome, unspecified; E03.9 Hypothyroidism, unspecified; I95.2 Hypotension due to drugs; I25.10 Atherosclerotic heart disease of native coronary artery without angina pectoris; I11.0 Hypertensive heart disease with heart failure; E78.5 Hyperlipidemia, unspecified; K21.9 Gastro-esophageal reflux disease without esophagitis; K59.09 Other constipation; M85.80 Other specified disorders of bone density and structure, unspecified site; Y92.230 Patient room in hospital as the place of occurrence of the external cause; Z86.711 Personal history of pulmonary embolism; Z79.01 Long term (current) use of anticoagulants; Z79.4 Long term (current) use of insulin; Z88.8 Allergy status to other drugs, medicaments and biological substances
CPT/HCPCS: 36416; 71045; 80162; 82040; 82247; 82274; 82310; 82374; 82435; 82565; 82947; 82948; 83036; 83735; 83880; 84075; 84132; 84155; 84295; 84443; 84450; 84460; 84484; 84520; 85025; 85610; 85730; 86850; 86900; 86901; 86920; 93005; 96361; 96365; 96374; 96375; 96376; 99284; J0153; J1160; J1642; J1815; J2405; J3475; J3490; J7030; J7040; J7050; P9016

== ENCOUNTER → 2018-03-20 | Outpatient (CLI) | payer MEDICARE, OTHER ==
[2018-03-10 11:48] VITALS: BMI 27.4
[~2018-03-20] MED LIST changes: +DIGO125T90 PO; +LANI SUBQ; +NEED-498 MC
[2018-03-20 11:27] VITALS: BP 133/62
== END ==
LOC: SPU 11:17
PROVIDERS: ATTEND Emergency Medicine
DX: Z51.81 Encounter for therapeutic drug level monitoring (principal); R53.83 Other fatigue
CPT/HCPCS: 36591; 80162

== ENCOUNTER → 2018-04-01 | Outpatient (CLI) | payer MEDICARE, OTHER ==
[2018-03-10 11:48] VITALS: BMI 27.4
--- NOTE | 2018-04-01 16:14 | RADIOLOGY IMAGING REPORT ---
FACILITY: [facility] PATIENT NAME: Mala Villela : 1935 MR: [id number] V: [id number] EXAM DATE: ORDERING PHYSICIAN: LISETTE BRIZUELA TECHNOLOGIST: Location: [facility] [place] Patient: Mala Villela : 1935 Visit/Account:[id number] Date of Sevice: 04/01/2018 Exam type: CHEST PA AND LAT History: Shortness of breath Comparison: March 08, 2018. And February 07, 2018 Findings: There is flattening the hemidiaphragms bilaterally consistent with hyperinflation. There is mild chr onic blunting left costophrenic angle. There is slight increase in bibasilar airspace consolidation which may represent atelectasis and or developing infiltrates. Cardiac silhouette is unchanged. The re is an implanted right IJ port with the distal tip projecting over the superior vena cava IMPRESSION: 1. Flattening the hemidiaphragms consistent with hyperinflation Slight increase in bibasal airspace consolidation which may represent atelectasis and/or developing i nfiltrates Report Dictated By: Jennifer Guzman MD at 04/01/2018 4:07 PM Report E-Signed By: Jennifer Guzman MD at 04/01/2018 4:10 PM [id number]
== END ==
LOC: RAD 15:27
PROVIDERS: ATTEND Internal Medicine
DX: R91.8 Other nonspecific abnormal finding of lung field (principal); Z95.828 Presence of other vascular implants and grafts
CPT/HCPCS: 71046

== ENCOUNTER 2018-04-04 10:35 | Outpatient (RCR) | payer MEDICARE, OTHER ==
[2016-12-21 07:58] VITALS: BMI 31.6
[2018-01-09] MEDS: LIDOCAINE/SOD BICARB 8.4% SYR ID PRN (09:32)
[2018-01-09 09:46] VITALS: BP 117/58
[2018-01-09 09:50] LABS: PLATELET COUNT, AUTOMATED 183 K/uL (150-450)
[2018-01-09] MEDS: HEPARIN FLSH (PORT) 500 UN/5ML IVP PRN (10:48)
[2018-01-09] MEDS: NS(*) 0.9% 500 ML BAG 500 ML IV PRN (13:13)
[2018-01-09 13:14] VITALS: BP 121/52
[2018-01-09 13:32] VITALS: BP 111/58
[2018-01-09 15:04] VITALS: BP 122/75
[2018-01-16 09:17] VITALS: BP 129/78
[2018-01-16 09:29] LABS: PLATELET COUNT, AUTOMATED 157 K/uL (150-450)
[2018-01-16] MEDS: HEPARIN FLSH (PORT) 500 UN/5ML IVP PRN (09:50)
[2018-01-16] MEDS: LIDOCAINE/SOD BICARB 8.4% SYR ID PRN (09:50)
[2018-01-23 10:19] VITALS: BP 126/72
[2018-01-23] MEDS: LIDOCAINE/SOD BICARB 8.4% SYR ID PRN (10:30)
[2018-01-23 10:35] LABS: PLATELET COUNT, AUTOMATED 150 K/uL (150-450)
[2018-01-23] MEDS: HEPARIN FLSH (PORT) 500 UN/5ML IVP PRN (10:46)
[2018-01-30 10:09] LABS: PLATELET COUNT, AUTOMATED 196 K/uL (150-450)
[2018-01-30 10:28] VITALS: BP 145/63
[2018-01-30 10:39] VITALS: BP 130/85
[2018-01-30] MEDS: LIDOCAINE/SOD BICARB 8.4% SYR ID PRN (10:49)
[2018-01-30] MEDS: HEPARIN FLSH (PORT) 500 UN/5ML IVP PRN (10:49)
--- NOTE | 2018-01-30 14:36 | ONCOLOGY FOLLOW UP NOTE ---
EVENT DATE: January 30, 2018 REASON FOR FOLLOWUP 1. Myelodysplastic syndrome, chronic anemia. 2. Fatigue. 3. Dizziness. 4. Hereditary hemochromatosis heterozygosity. CHIEF COMPLAINT Fatigue, problems with memory. INTERIM HISTORY Mala returns to clinic for a followup visit today. She is here about six weeks early. [facility]. She has required periodic packed red blood cell transfusion but in general she has no new complaints. She does have ongoing reports of memory issues. She reports no new pain but she does get winded with exertion, as is her norm. REVIEW OF SYSTEMS Otherwise negative and all systems were reviewed. PAST MEDICAL HISTORY 1. Hemochromatosis carrier. 2. 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 3. Myelodysplastic syndrome. HEMATOLOGY/ONCOLOGY HISTORY Myelodysplastic syndrome diagnosed December 25, 2012. Bone marrow biopsy performed at that time revealed findings consistent with low-grade myelodysplastic syndrome, mildly hypercellular marrow for age with trilineage dysplasia, adequate storage iron, and no evidence of lymphoma or plasma cell dyscrasia. Since that time, she has been receiving transfusions periodically (driven by symptoms) as well as Desferal. SOCIAL HISTORY The patient is a nonsmoker and nondrinker. There is no history of illicit drug use. She lives here in [place]. FAMILY HISTORY There is a history of hypertension as well as history of leukemia in her twin sister. Her father had prostate cancer at age 49, and her mother had history of stroke. MEDICATIONS 1. Pantoprazole. 2. Guaifenesin. 3. Echinacea. 4. Zantac. 5. Aspirin. 6. Nitroglycerin. 7. Amlodipine. 8. Clopidogrel. 9. Folic acid. 10. Levothyroxine. 11. Linzess. 12. Vitamin B12. 13. Calcium. 14. Multivitamin. ALLERGIES 1. PSEUDOEPHEDRINE. 2. CHLORPHENIRAMINE. 3. MECLIZINE. VITAL SIGNS Temperature is 98.4, blood pressure 143/63, heart rate is 89, respirations 16, oxygen saturation is 100% on 3L. PHYSICAL EXAMINATION GENERAL: Patient is alert and oriented x3, in no apparent distress, sitting in the infusion chair. She is interactive and pleasant. Memory is impaired. She appears somewhat pale. HEENT: Anicteric sclerae. NEUROLOGIC: Grossly nonfocal. SKIN: No concerning rash or lesions. Pallor is present. EXTREMITIES: Slight edema of the bilateral lower extremities. LABORATORY STUDIES Reviewed per the [facility] record. ASSESSMENT AND PLAN Myelodysplastic syndrome, hereditary hemochromatosis heterozygosity. Mala continues to do about the same clinically. We discussed that we had originally planned for her to visit about three months from her past visit. As such, we are visiting a bit early. She seems to be holding her own but she will continue to require transfusions support with her underlying MDS. Her ferritin has gone up and is now greater than 1000. We will continue with Desferal but it is unlikely that iron overload will be particularly problematic in the long run. Also, we will check with staff to see what progress has been made in terms of getting her some help at home with her failing memory. Home Health had been discussed previously. I will plan to see Mala back in three months or sooner if there are questions or concerns. GEETA
[2018-02-06] VITALS (8 sets, daily range): BP systolic 110–135; BP diastolic 54–99
[2018-02-06] MEDS: HEPARIN FLSH (PORT) 500 UN/5ML IVP PRN (09:39)
[2018-02-06] MEDS: LIDOCAINE/SOD BICARB 8.4% SYR ID PRN (09:39)
[2018-02-06 09:45] LABS: PLATELET COUNT, AUTOMATED 199 K/uL (150-450)
[2018-02-06] MEDS: NS(*) 0.9% 500 ML BAG 500 ML IV PRN (14:06)
[2018-02-13 09:11] VITALS: BP 117/62
[2018-02-13 09:25] LABS: PLATELET COUNT, AUTOMATED 128 K/uL (150-450)
[2018-02-13] MEDS: HEPARIN FLSH (PORT) 500 UN/5ML IVP PRN (09:42)
[2018-02-13] MEDS: LIDOCAINE/SOD BICARB 8.4% SYR ID PRN (09:42)
[2018-02-21 09:48] VITALS: BP 114/63
[2018-02-21 10:06] LABS: PLATELET COUNT, AUTOMATED 194 K/uL (150-450)
[2018-02-21] MEDS: LIDOCAINE/SOD BICARB 8.4% SYR ID PRN (10:27)
[2018-02-21] MEDS: HEPARIN FLSH (PORT) 500 UN/5ML IVP PRN (10:27)
[2018-02-28 08:48] VITALS: BP 114/56
[2018-02-28 09:05] LABS: PLATELET COUNT, AUTOMATED 203 K/uL (150-450)
[2018-02-28 12:19] VITALS: BP 97/55
[2018-02-28] MEDS: NS(*) 0.9% 500 ML BAG 500 ML IV PRN (12:25)
[2018-02-28] MEDS: HEPARIN FLSH (PORT) 500 UN/5ML IVP PRN (12:25)
[2018-02-28] MEDS: LIDOCAINE/SOD BICARB 8.4% SYR ID PRN (12:25)
[2018-02-28 12:38] VITALS: BP 94/52
[2018-02-28 12:40] VITALS: BP 94/52
[2018-02-28 14:37] VITALS: BP 113/63
[2018-03-14 09:18] VITALS: BP 116/61
[2018-03-14 09:36] LABS: PLATELET COUNT, AUTOMATED 119 K/uL (150-450)
[2018-03-14] MEDS: HEPARIN FLSH (PORT) 500 UN/5ML IVP PRN (10:25)
[2018-03-14] MEDS: LIDOCAINE/SOD BICARB 8.4% SYR ID PRN (10:25)
[2018-03-20 11:23] VITALS: BP 133/62
[2018-03-20] MEDS: LIDOCAINE/SOD BICARB 8.4% SYR ID PRN (11:35)
[2018-03-20] MEDS: HEPARIN FLSH (PORT) 500 UN/5ML IVP PRN (11:35)
[2018-03-20 11:46] LABS: PLATELET COUNT, AUTOMATED 154 K/uL (150-450)
[2018-03-28 10:57] VITALS: BP 138/82
[2018-03-28 11:15] LABS: PLATELET COUNT, AUTOMATED 152 K/uL (150-450)
[2018-03-28] MEDS: HEPARIN FLSH (PORT) 500 UN/5ML IVP PRN (11:33)
[2018-03-28] MEDS: LIDOCAINE/SOD BICARB 8.4% SYR ID PRN (11:33)
[~2018-04-04 10:35] MED LIST changes: +ALTEPLASE RECOMB 2 MG VIAL IVP PRN; +DEXTROSE 5%(*) 100 ML BAG 100 ML IVPB PRN; +DILT120C12 PO; -DILT120C18 PO; -GEMF600T92 PO; +GEMF600T96 PO; +INFLUENZA VIRUS VAC 0.5ML SYR IM ONLY ONE; -LOSA50TA74 PO; +LOSA50TA80 PO; +NS(*) 0.9% 100 ML BAG 100 ML IVPB PRN; +SODIUM CHLORIDE 0.9% IVPB ONE; +WATER FOR INJ,STERILE 20 ML IVP PRN; +[UNRECOGNIZED DRUG - OTHER] IVPB ONE
[2018-04-04 10:47] VITALS: BP 113/51
[2018-04-04 11:01] LABS: PLATELET COUNT, AUTOMATED 180 K/uL (150-450)
[2018-04-04] MEDS: LIDOCAINE/SOD BICARB 8.4% SYR ID PRN (11:23)
[2018-04-04] MEDS: HEPARIN FLSH (PORT) 500 UN/5ML IVP PRN (11:23)
[2018-04-08] MEDS ORDERED: DIGO125T90 PO (08:47)
== END 2018-04-08 ==
LOC: SPU 10:35
PROVIDERS: ATTEND Internal Medicine Medical Oncology
DX: D46.9 Myelodysplastic syndrome, unspecified (principal); D53.9 Nutritional anemia, unspecified; Z28.9 Immunization not carried out for unspecified reason; R53.83 Other fatigue; R42 Dizziness and giddiness; E83.110 Hereditary hemochromatosis; Z23 Encounter for immunization
CPT/HCPCS: 36430; 36591; 80162; 82728; 83540; 83550; 83615; 85025; 86850; 86900; 86901; 86920; 90471; 96365; 96366; J0895; J1642; J7040; J7050; P9016; Q2037; 82040; 82247; 82310; 82374; 82435; 82565; 82947; 84075; 84132; 84155; 84295; 84450; 84460; 84520; 90674

== ENCOUNTER 2018-04-10 10:14 | Inpatient (IN) | payer MEDICARE, OTHER ==
[~2018-04-10] VITALS: Ht 154.9 cm; Wt 63.5 kg
[~2018-04-10 10:14] MED LIST changes: -ALTEPLASE RECOMB 2 MG VIAL IVP PRN; -DEXTROSE 5%(*) 100 ML BAG 100 ML IVPB PRN; -INFLUENZA VIRUS VAC 0.5ML SYR IM ONLY ONE; -NS(*) 0.9% 100 ML BAG 100 ML IVPB PRN; -SODIUM CHLORIDE 0.9% IVPB ONE; -WATER FOR INJ,STERILE 20 ML IVP PRN; -[UNRECOGNIZED DRUG - OTHER] IVPB ONE
--- NOTE | 2018-04-10 10:18 | ER Report ---
History and Physical Time Seen By MD: 10:18 HPI/ROS CHIEF COMPLAINT: Shortness breath, exertional dyspnea HISTORY OF PRESENT ILLNESS: Patient is an 82-year-old female here with the above complaints. She was noted to have desaturations into the 70s at home on mild exertion. In the emergency department she was noted to be 80% with exertion, inc reased shortness breath. REVIEW OF SYSTEMS: Constitutional: No fever, no chills. Eyes: No discharge. ENT: No sore throat. Cardiovascular: No chest pain, no palpitations. Respiratory: + increased dyspnea on exertion Gastrointestinal: No abdominal pain, no vomiting. Genitourinary: No hematuria. Musculoskeletal: + lower extremity edema Skin: No rashes. Neurological: No headache. Allergies: Coded Allergies: meclizine (Verified Allergy, Intermediate, Dizziness, 04/10/18) chlorpheniramine (Verified Allergy, Unknown, 04/10/18) pseudoephedrine (Verified Allergy, Unknown, 04/10/18) Home Meds Active Scripts Furosemide (FUROSEMIDE) 20 Mg Tablet, 40 MG PO QDAY for 30 Days, #60 TAB Prov:KEVIN YANES 04/13/18 Digoxin (Digox) 125 Mcg Tablet, 0.125 MG PO QDAY for 10 Days, #90 TAB 3 Refills Prov:ISABEL MOYA MD 04/08/18 [place], Insulin Disposable (INSULIN PEN NEEDLE) 1 Each Dis.needle, EACH MC DAILY, #1 Prov:ISABEL MOYA MD 03/12/18 Insulin Glargine (LANTUS) 100 Unit/Ml Soln, 10 UNIT SUBQ DAILY, #1 BOX 0 Refills Prov:ISABEL MOYA MD 03/12/18 Lisinopril (LISINOPRIL) 5 Mg Tablet, 5 MG PO DAILY, #90 TAB 1 Refill Prov:ISABEL MOYA MD 02/26/18 Glimepiride (GLIMEPIRIDE) 2 Mg Tablet, 3 TAB PO QDAY, #270 TAB 1 Refill Prov:ISABEL MOYA MD 02/26/18 Atorvastatin Calcium (ATORVASTATIN CALCIUM) 10 Mg Tablet, 1 TAB PO QDAY, #90 TAB 3 Refills Prov:ISABEL MOYA MD 02/21/18 Folic Acid (FOLIC ACID) 1 Mg Tablet, 1 MG PO QDAY for low hgb, #90 TAB 3 Refills Prov:ISABEL MOYA MD 09/13/17 Levothyroxine Sodium (LEVOTHYROXINE SODIUM) 75 Mcg Tablet, 1 TAB PO QDAY, #90 TAB 4 Refills Prov:ISABEL MOYA MD 08/30/17 Linaclotide (LINZESS) 145 Mcg Capsule, 1 CAP PO DAILY, #90 CAPSULE 3 Refills Prov:ISABEL MOYA MD 06/29/17 Reported Medications Aspirin (ASPIRIN) 81 Mg Tab.chew, 81 MG PO QDAY, TAB.CHEW 04/10/18 Polyethylene Glycol 8000 (POLYETHYLENE GLYCOL) 500 Gm Powder, 17 GM PO DAILY 02/14/18 Bisacodyl (DULCOLAX) 5 Mg Tablet.dr, 10 MG PO DAILY PRN for CONSTIPATION 02/14/18 Apixaban (ELIQUIS) 5 Mg Tablet, 5 MG PO BID, #60 TAB 02/14/18 Saline (AYR SALINE NASAL GEL) 14.1 Gm Gel, 14.1 GM NA DAILY, GEL 07/30/17 [place]-3 Fatty Acids/Fish Oil (OMEGA 3 1,000 MG SOFTGEL) 1 Each Capsule, 2 EACH PO QDAY, CAPSULE 07/30/17 Cyanocobalamin (Vitamin B-12) (Vitamin B12) 2,500 Mcg Tablet, 1 TAB PO DAILY 02/22/16 Guaifenesin (MUCINEX) 600 Mg Tablet.er, PO PRN 04/15/15 Calcium Carbonate (Calcium) 600 Mg Tablet, 1 TAB PO DAILY, 0 Refills 08/11/10 Multivitamins W-Minerals (Multiple Vitamin) 1 Tab Tablet, 1 TAB PO DAILY, 0 Refills 08/11/10 Discontinued Scripts Furosemide (FUROSEMIDE) 20 Mg Tablet, 1 TAB PO DAILY, #90 TAB 3 Refills Prov:ISABEL MOYA MD 02/25/18 Hx Smoking: No Smoking Status: Never Smoker Exposure to Second Hand Smoke?: Yes (ALL HER LIFE.) Hx Substance Use Disorder: No Hx Alcohol Use: No Physical Exam General Appearance: The patient is alert, has no immediate need for airway protection and no signs of toxicity. exertional dyspnea Eyes: Pupils equal and round no pallor or injection. ENT, Mouth: Mucous membranes are moist. Respiratory: There are no retractions, lungs are clear to auscultation. Cardiovascular: Regular rate and rhythm. Gastrointestinal: Abdomen is soft and non tender, no masses, bowel sounds normal. Neurological: No focal deficits Skin: Warm and dry, no rashes. Musculoskeletal: Neck is supple non tender. + lower extremity edema b/l DIFFERENTIAL DIAGNOSIS: After history and physical exam differential diagnosis was considered for pulmonary edema, CHF exacerbation, pneumonia, dehydration Medical Decision Making Data Points Result Diagram: 04/13/18 0528 04/13/18 0528 Laboratory Hematology Test 06/17/15 00:00 04/10/18 11:00 Neutrophils # 2.6 th/mm3 Hematocrit 9.0 g/dl Hemoglobin 27.4 g/dl Platelet Count 306 th/mm3 White Blood Count 4.2 th/mm3 Albumin 4.7 g/dl Alkaline Phosphatase 77 IU/L Alanine Aminotransferase (ALT/SGPT) 25 u/L Aspartate Amino Transf (AST/SGOT) 19 gloria/L Blood Urea Nitrogen 16 mg/dl Calcium Level 9.5 mg/dl Chloride Level 96 mmol/L Carbon Dioxide Level 26 mmol/L Creatinine 0.72 mg/dl Glucose Level 86 mg/dl Potassium Level 4.1 mmol/L Sodium Level 138 mmol/L Total Protein 6.4 g/dl Total Bilirubin 0.9 mg/dl Prothrombin Time 25.3 seconds (12.0-14.4) Prothromb Time International Ratio 2.26 Activated Partial Thromboplast Time > 180 seconds (23-35) Troponin I 0.029 ng/ml B-Type Natriuretic Peptide 1210 pg/ml (0-100) Chemistry Test 06/17/15 00:00 04/10/18 11:00 Neutrophils # 2.6 th/mm3 Hematocrit 9.0 g/dl Hemoglobin 27.4 g/dl Platelet Count 306 th/mm3 White Blood Count 4.2 th/mm3 Albumin 4.7 g/dl Alkaline Phosphatase 77 IU/L Alanine Aminotransferase (ALT/SGPT) 25 u/L Aspartate Amino Transf (AST/SGOT) 19 gloria/L Blood Urea Nitrogen 16 mg/dl Calcium Level 9.5 mg/dl Chloride Level 96 mmol/L Carbon Dioxide Level 26 mmol/L Creatinine 0.72 mg/dl Glucose Level 86 mg/dl Potassium Level 4.1 mmol/L Sodium Level 138 mmol/L Total Protein 6.4 g/dl Total Bilirubin 0.9 mg/dl Prothrombin Time 25.3 seconds (12.0-14.4) Prothromb Time International Ratio 2.26 Activated Partial Thromboplast Time > 180 seconds (23-35) Troponin I 0.029 ng/ml B-Type Natriuretic Peptide 1210 pg/ml (0-100) Coagulation Test 04/10/18 11:00 Prothrombin Time 25.3 seconds Prothromb Time International Ratio 2.26 Activated Partial Thromboplast Time > 180 seconds EKG/Imaging EKG Interpretation PATIENT NAME: FRANCOIS LLAMAS : [id number] MR: [id number] V: [id number] EXAM DATE: ORDERING PHYSICIAN: HAYDEE HOLDEN TECHNOLOGIST: Test Reason : SOB Blood Pressure : / mmHG Vent. Rate : 068 BPM Atrial Rate : 068 BPM P-R Int : 162 ms QRS Dur : 088 ms QT Int : 398 ms P-R-T Axes : 054 047 208 degrees QTc Int : 423 ms Normal sinus rhythm Possible Left atrial enlargement T wave abnormality, consider anterolateral ischemia Abnormal ECG When compared with ECG of 08-MAR-2018 17:54, Sinus rhythm has replaced Atrial fibrillation T wave inversion now evident in Anterior leads Confirmed by Kevin Yanes ([id number]) on 04/10/2018 4:50:18 PM Referred By: Confirmed By:Kevin Woods Imaging Location: [facility] - [place] Patient: Francois Llamas : 1935 Visit/Account:[id number] Date of Sevice: 04/10/2018 Exam type: CHEST PA AND LAT History: RESP DISTRESS Comparison: April 01, 2018. Findings: There has been further increase in the interstitial and peribronchial markings throughout the lungs. No lobar infiltrates are identified. There is no evidence of pleural effusions. The cardiac silhouette is enlarged but unchanged. There is a implanted right IJ port that appears unchanged in position. IMPRESSION: 1. Further increase in the interstitial peribronchial markings of the lungs likely related to an acute infectious/inflammatory process. Other considerations would include pulmonary edema although no evidence of pleural e ffusions identified ED Course/Re-evaluation ED Course Patient is an 82-year-old female here with CHF exacerbation, increased dyspnea on exertion, desaturations documented on exertion. Patient was given IV Lasix and was subsequently admitted to the hospital service for diuresis. Patient is hemodynamically stable at time of admission. Decision to Disposition Date: Apr 10, 2018 Decision to Disposition Time: 12:00 Depart Departure Impression: Primary Impression: Acute and chronic respiratory failure with hypoxia Additional Impression: Acute diastolic (congestive) heart failure Condition: Condition Unchanged Disposition: Admitted from ER Referrals: ISABEL MOYA MD (PCP) New Scripts Furosemide (FUROSEMIDE) 20 Mg Tablet 40 MG PO QDAY for 30 Days, #60 TAB Prov: KEVIN YANES DO 04/13/18 Problem Qualifiers HAYDEE HOLDEN DO Apr 10, 2018 10:18
[2018-04-10] MEDS ORDERED: ALBUTEROL/IPRATROPIUM 3 ML NEB NEB ONE (10:40)
--- NOTE | 2018-04-10 11:09 | EKG ---
FACILITY: [facility] - [place] PATIENT NAME: FRANCOIS LLAMAS : [id number] MR: [id number] V: [id number] EXAM DATE: ORDERING PHYSICIAN: HAYDEE HOLDEN TECHNOLOGIST: Test Reason : SOB Blood Pressure : / mmHG Vent. Rate : 068 BPM Atrial Rate : 068 BPM P-R Int : 162 ms QRS Dur : 088 ms QT Int : 398 ms P-R-T Axes : 054 047 208 degrees QTc Int : 423 ms Normal sinus rhythm Possible Left atrial enlargement T wave abnormality, consider anterolateral ischemia Abnormal ECG When compared with ECG of 08-MAR-2018 17:54, Sinus rhythm has replaced Atrial fibrillation T wave inversion now evident in Anterior leads Confirmed by Phong Yanes ([id number]) on 04/10/2018 4:50:18 PM Referred By: Confirmed By:Phong Woods
[2018-04-10 11:10] LABS: PLATELET COUNT, AUTOMATED 200 K/uL (150-450)
[2018-04-10 11:16] LABS: INR 2.26
[2018-04-10] MEDS ORDERED: FUROSEMIDE 40 MG/4 ML VIAL IVP ONE (11:40)
--- NOTE | 2018-04-10 12:00 | RADIOLOGY IMAGING REPORT ---
FACILITY: [facility] - [place] PATIENT NAME: Mala Villela : 1935 MR: [id number] V: [id number] EXAM DATE: ORDERING PHYSICIAN: HAYDEE HOLDEN TECHNOLOGIST: [place] [facility] [place] Mala V[place]la : 1935 Visit/Account:[id number] Date of Sevice: 04/10/2018 Exam type: CHEST PA AND LAT History: RESP DISTRESS Comparison: April 01, 2018. Findings: There has been further increase in the interstitial and peribronchial markings throughout the lungs. No lobar infiltrates are identified. There is no evidence of pleural effusions. The cardiac silhou ette is enlarged but unchanged. There is a implanted right IJ port that appears unchanged in positio n. IMPRESSION: 1. Further increase in the interstitial peribronchial markings of the lungs likely related to an acu te infectious/inflammatory process. Other considerations would include pulmonary edema although no e vidence of pleural effusions identified Report Dictated By: Jennifer Guzman MD at 04/10/2018 11:52 AM Report E-Signed By: Jennifer Guzman MD at 04/10/2018 11:54 AM WSN:[email or web address]
[2018-04-10 12:56] VITALS: BP 115/59
[2018-04-10] MEDS ORDERED: ASPI81TA94 PO (14:10)
[2018-04-10] MEDS ORDERED: ACETAMINOPHEN 325 MG TAB PO PRN (14:15)
[2018-04-10] MEDS ORDERED: FLUSH 10 ML SYR IVP PRN (14:15)
[2018-04-10] MEDS ORDERED: ONDANSETRON 4 MG/2 ML VIAL IVP PRN (14:15)
[2018-04-10 15:43] VITALS: BP 118/59
--- NOTE | 2018-04-10 16:31 | History & Physical ---
History of Present Illness Chief Complaint dyspnea on exertion History of Present Illness 82F with PMHx significant for HFrEF, mitral regurgitation, myelodysplastic syndrome, presented to [facility] ER with conmplaint of increased dyspnea on exertion and oxygen demands. Usually on 3L baseline and has been turning it up to at least 4. Became concerned after she felt dyspneic and pulse oximeter showed in 70s . While in ER walking noted to desaturate to 80 with ambulation, increased lower extremity edema. Admitted for IV diuresis and monitoring. Denies any fever, chills, productive cough, CP, palpitation. 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 Status: Chronic (3) Hypertension Status: Chronic (4) Chronic respiratory failure with hypoxia (5) Myelodysplastic syndrome, unspecified Status: Chronic (6) Type II diabetes mellitus Status: Chronic (7) BIJAL on CPAP Status: Chronic Home Meds Active Scripts Digoxin (Digox) 125 Mcg Tablet, 0.125 MG PO QDAY for 10 Days, #90 TAB 3 Refills Prov:LUCY CURTIS MD 04/08/18 [place], Insulin Disposable (INSULIN PEN NEEDLE) 1 Each Dis.needle, EACH MC DAILY, #1 Prov:LUYC CURTIS MD 03/12/18 Insulin Glargine (LANTUS) 100 Unit/Ml Soln, 10 UNIT SUBQ DAILY, #1 BOX 0 Refills Prov:LUCY CURTIS MD 03/12/18 Lisinopril (LISINOPRIL) 5 Mg Tablet, 5 MG PO DAILY, #90 TAB 1 Refill Prov:LUCY CURTIS MD 02/26/18 Glimepiride (GLIMEPIRIDE) 2 Mg Tablet, 3 TAB PO QDAY, #270 TAB 1 Refill Prov:LUCY CURTIS MD 02/26/18 Furosemide (FUROSEMIDE) 20 Mg Tablet, 1 TAB PO DAILY, #90 TAB 3 Refills Prov:LUCY CURTIS MD 02/25/18 Atorvastatin Calcium (ATORVASTATIN CALCIUM) 10 Mg Tablet, 1 TAB PO QDAY, #90 TAB 3 Refills Prov:LUCY CURTIS MD 02/21/18 Folic Acid (FOLIC ACID) 1 Mg Tablet, 1 MG PO QDAY for low hgb, #90 TAB 3 Refills Prov:LUCY CURTIS MD 09/13/17 Levothyroxine Sodium (LEVOTHYROXINE SODIUM) 75 Mcg Tablet, 1 TAB PO QDAY, #90 TAB 4 Refills Prov:LUCY CURTIS MD 08/30/17 Linaclotide (LINZESS) 145 Mcg Capsule, 1 CAP PO DAILY, #90 CAPSULE 3 Refills Prov:LUCY CURTIS MD 06/29/17 Reported Medications Aspirin (ASPIRIN) 81 Mg Tab.chew, 81 MG PO QDAY, TAB.CHEW 04/10/18 Polyethylene Glycol 8000 (POLYETHYLENE GLYCOL) 500 Gm Powder, 17 GM PO DAILY 02/14/18 Bisacodyl (DULCOLAX) 5 Mg Tablet.dr, 10 MG PO DAILY PRN for CONSTIPATION 02/14/18 Apixaban (ELIQUIS) 5 Mg Tablet, 5 MG PO BID, #60 TAB 02/14/18 Saline (AYR SALINE NASAL GEL) 14.1 Gm Gel, 14.1 GM NA DAILY, GEL 07/30/17 [place]-3 Fatty Acids/Fish Oil (OMEGA 3 1,000 MG SOFTGEL) 1 Each Capsule, 2 EACH PO QDAY, CAPSULE 07/30/17 Cyanocobalamin (Vitamin B-12) (Vitamin B12) 2,500 Mcg Tablet, 1 TAB PO DAILY 02/22/16 Guaifenesin (MUCINEX) 600 Mg Tablet.er, PO PRN 04/15/15 Calcium Carbonate (Calcium) 600 Mg Tablet, 1 TAB PO DAILY, 0 Refills 08/11/10 Multivitamins W-Minerals (Multiple Vitamin) 1 Tab Tablet, 1 TAB PO DAILY, 0 Refills 08/11/10 Allergies: Coded Allergies: meclizine (Verified Allergy, Intermediate, Dizziness, 04/10/18) chlorpheniramine (Verified Allergy, Unknown, 04/10/18) pseudoephedrine (Verified Allergy, Unknown, 04/10/18) Patient History: FH: HTN (hypertension) MOTHER, , Age:81 FH: diabetes mellitus FATHER, , Age:49 BROTHER OR SISTER, FH: leukemia TWIN SISTER FH: prostate cancer FATHER, , Age:49 BROTHER OR SISTER, FH: stroke MOTHER, , Age:81 Hx Smoking: No Smoking Status: Never Smoker Exposure to Second Hand Smoke?: Yes (ALL HER LIFE.) Caffeine Intake: Tea Caffeine/Cups Per Day: 1-2 Hx Alcohol Use: No Hx Substance Use Disorder: No Social Drug Use: Never Review of Systems Constitutional: Weight Gain; No Fever Cardiovascular: No Chest Pain, No Palpitations Respiratory: Shortness of Breath; No Cough, No Wheezing Exam Vital Signs Vital Signs Date Time Temp Pulse Resp B/P (MAP) Pulse Ox O2 Delivery O2 Flow Rate FiO2 04/10/18 15:43 98.7 73 20 118/59 (78) 94 Nasal Cannula 2.5 General Appearance: Alert, Awake, No Acute Distress Neuro: No Gross deficits Eyes: PERRLA ENT: Normal Neck: No Masses Cardiovascular: Other (2/6 diastolic murmur.) Respiratory: No Respiratory Distress GI: Abd Soft and Non-Tender : Normal (+ mclean) Extremities: Soft and Non Tender, Warm, Pulses, Perfused, Edema (severe pitting edema b/l LE to above knee) Integumentary: Skin Intact without Lesion / Mass Psych: Alert & Oriented X3 Medical Decision Making Data Points Result Diagram: 04/10/18 1100 04/10/18 1100 EKG / Imaging EKG Interpretation NSR Monitor Interpretation: Normal Sinus Rhythm Assessment and Plan Problems: (1) Acute on chronic heart failure with reduced ejection fraction and diastolic dysfunction Assessment & Plan: Elevated BNP and CXR showing pulmonary edema. 68.5 kg on admission. Reports compliance with diuretic regimen. Will begin IV diuresis, monitor I/O, daily weight, 2g sodium restriction, 1.5L fluid restriction. (2) Acute and chronic respiratory failure with hypoxia Assessment & Plan: Baseline 3L O2, currently needing 4L. Treatment as above, if no improvement will investigate possible worsening of chronic heart failure, MDS, severe mitral regurgitation. (3) Pulmonary embolism *Optional Permanent Comment*: 02/14: subsegmental Last Edited By: Lucy Curtis MD on Apr 08, 2018 08:49 Status: Chronic Assessment & Plan: Continue chronic Eliquis. (4) Myelodysplastic syndrome, unspecified Status: Chronic Assessment & Plan: Hgb stable on admission, was transfused 2 weeks ago and is transfusion dependent. If no improvement with diuresis consider discussing with oncology. (5) Type II diabetes mellitus Status: Chronic Assessment & Plan: On chronic Lantus 10U daily. Currently holding Linzess and glimepiride. Will use [facility] level one for additional coverage while inpatient. Venous Thromboembolism Antithrombotics Is Pt On Any Antithrombotics?: Yes Exam Sepsis Risk: No Definite Risk GASTELUM EKVIN ARRIETA DO Apr 10, 2018 16:31
[2018-04-10 18:41] VITALS: BP 109/54
[2018-04-10] MEDS: APIXABAN 2.5 MG TABLET PO SCH (20:41)
[2018-04-10] MEDS: ATORVASTATIN 10 MG TAB PO SCH (20:41)
[2018-04-10] MEDS: INSULIN HUM LISPRO 100 UN/ML 3 ML VIAL SUBQ PRN (20:43)
[2018-04-10] MEDS: INSULIN GLARGINE 100 U/ML 3 ML PEN SUBQ SCH (20:45)
[2018-04-10] MEDS ORDERED: FUROSEMIDE 40 MG/4 ML VIAL IVP SCH (21:00)
[2018-04-11] VITALS (9 sets, daily range): BP systolic 103–127; BP diastolic 51–63; Ht 154.9 cm; Wt 63.5 kg
[2018-04-11] MEDS: LEVOTHYROXINE SOD 0.075 MG TAB PO SCH (05:35)
[2018-04-11] MEDS: FUROSEMIDE 40 MG/4 ML VIAL IVP SCH ×2 (09:30→13:34)
[2018-04-11] MEDS: BISACODYL 5 MG TABEC PO SCH (09:30)
[2018-04-11] MEDS: LISINOPRIL 5 MG TAB PO SCH (09:30)
[2018-04-11] MEDS: CYANOCOBALAMIN 1000 MCG TAB PO SCH (09:30)
[2018-04-11] MEDS: DIGOXIN 0.125 MG TAB PO SCH (09:31)
[2018-04-11] MEDS: ASPIRIN 81 MG CHEW PO SCH (09:31)
[2018-04-11] MEDS: POLYETHYLENE GLYCOL 17 GM PKT PO SCH (09:31)
[2018-04-11] MEDS: CALCIUM CARBONATE 600 MG TAB PO SCH (09:31)
[2018-04-11] MEDS: APIXABAN 2.5 MG TABLET PO SCH ×2 (09:31→21:30)
[2018-04-11] MEDS: FOLIC ACID 1 MG TAB PO SCH (09:31)
--- NOTE | 2018-04-11 10:21 | Hospitalist Progress Note ---
Subjective Progress Notes Subjective She reports mild improvements. Still dyspneic with activities. Hgb/Hct have dropped further. Physical Exam Vital Signs Date Time Temp Pulse Resp B/P (MAP) Pulse Ox O2 Delivery O2 Flow Rate FiO2 04/11/18 09:31 71 04/11/18 07:39 93 Nasal Cannula 4.0 04/11/18 07:28 97.8 18 113/53 (73) Intake and Output 04/11/18 06:59 Intake Total 840 ml Output Total 5050 ml Balance -4210 ml Intake Oral 840 ml Output Urine Total 5050 ml General Appearance: Alert, Awake Cardiovascular: Other (Regular with systolic murmur) Respiratory: Other (few rales at bases) GI: Soft and Non-Tender Extremities: Warm, Perfused, Edema Psych: Alert & Oriented X3 Result Diagram: 04/11/18 0550 04/11/18 0550 Monitor Interpretation: Normal Sinus Rhythm Assessment and Plan Problems: (1) Acute on chronic heart failure with reduced ejection fraction and diastolic dysfunction Assessment & Plan: Elevated BNP and CXR showing pulmonary edema. 68.5 kg on admission. She reports compliance with diuretic regimen. We started IV diuresis (Lasix 40mg IV TID). I suspect her anemia has contributed to the exacerbation as well. Will continue the diuresis and transfuse today. (2) Acute and chronic respiratory failure with hypoxia Assessment & Plan: Baseline is 3L O2, but she is currently needing 4L. Treatment as above, if no improvement will check echocardiogram for possible worsening of chronic heart failure, severe mitral regurgitation. Will transfuse 2 units PRBC as noted above. (3) Pulmonary embolism *Optional Permanent Comment*: 02/14: subsegmental Last Edited By: Lucy Curtis MD on Apr 08, 2018 08:49 Status: Chronic Assessment & Plan: Continue Eliquis. (4) Myelodysplastic syndrome, unspecified Status: Chronic Assessment & Plan: Hgb/Hct have dropped further. Will transfuse 2 units PRBC. Will also set up for her chelation therapy (Desferal). (5) Type II diabetes mellitus Status: Chronic Assessment & Plan: On chronic Lantus 10U daily. Currently holding Linzess and glimepiride. Will use [facility] level one for additional coverage while inpatient. Exam Sepsis Risk: No Definite Risk AMARJIT GODOY MD Apr 11, 2018 10:21
[2018-04-11] MEDS ORDERED: NS(*) 0.9% 500 ML BAG 500 ML ONE (10:27)
[2018-04-11] MEDS: INSULIN HUM LISPRO 100 UN/ML 3 ML VIAL SUBQ PRN ×3 (11:19→21:28)
[2018-04-11] MEDS ORDERED: [UNRECOGNIZED DRUG - OTHER] IVPB ONE (16:00)
[2018-04-11] MEDS ORDERED: SODIUM CHLORIDE 0.9% IVPB ONE (16:00)
[2018-04-11] MEDS ORDERED: NS(*) 0.9% 250 ML BAG 250 ML ONE (16:40)
[2018-04-11] MEDS: ATORVASTATIN 10 MG TAB PO SCH (21:30)
[2018-04-11] MEDS: INSULIN GLARGINE 100 U/ML 3 ML PEN SUBQ SCH (21:30)
[2018-04-12 02:57] VITALS: BP 107/59
[2018-04-12] MEDS: LEVOTHYROXINE SOD 0.075 MG TAB PO SCH (05:22)
[2018-04-12 06:00] LABS: PLATELET COUNT, AUTOMATED 175 K/uL (150-450)
[2018-04-12 07:14] VITALS: BP 107/51
[2018-04-12] MEDS: POLYETHYLENE GLYCOL 17 GM PKT PO SCH (08:33)
[2018-04-12] MEDS: LISINOPRIL 5 MG TAB PO SCH (08:33)
[2018-04-12] MEDS: FUROSEMIDE 20 MG TAB PO SCH (08:33)
[2018-04-12] MEDS: APIXABAN 2.5 MG TABLET PO SCH ×2 (08:33→20:53)
[2018-04-12] MEDS: CYANOCOBALAMIN 1000 MCG TAB PO SCH (08:33)
[2018-04-12] MEDS: FOLIC ACID 1 MG TAB PO SCH (08:34)
[2018-04-12] MEDS: ASPIRIN 81 MG CHEW PO SCH (08:34)
[2018-04-12] MEDS: CALCIUM CARBONATE 600 MG TAB PO SCH (08:34)
[2018-04-12] MEDS: BISACODYL 5 MG TABEC PO SCH (08:34)
[2018-04-12] MEDS: DIGOXIN 0.125 MG TAB PO SCH (08:34)
--- NOTE | 2018-04-12 09:24 | Hospitalist Progress Note ---
Subjective Progress Notes Subjective This patient was admitted for heart failure. She had no acute events overnight. Patient Complains of: Cardiovascular: No: Chest Pain Respiratory: No: Shortness of Breath Physical Exam Vital Signs Date Time Temp Pulse Resp B/P (MAP) Pulse Ox O2 Delivery O2 Flow Rate FiO2 04/12/18 08:34 68 04/12/18 07:20 90 Nasal Cannula 4.0 04/12/18 07:14 98.1 20 107/51 (69) Intake and Output 04/12/18 07:00 Intake Total 2030 ml Output Total 3720 ml Balance -1690 ml Intake Oral 1010 ml IV Total 520 ml Blood Product 500 ml Output Urine Total 3720 ml Cardiovascular: Regular Rate and Rhythm, No JVD Respiratory: Clear to Auscultation Extremities: No Edema Result Diagram: 04/12/18 0516 04/12/18 0516 Monitor Interpretation: Normal Sinus Rhythm Assessment and Plan Problems: (1) Acute diastolic (congestive) heart failure Assessment & Plan: She did present with increased shortness of breath. Her BNP was elevated and her chest x-ray showed pulmonary edema. Her most recent echocardiogram (2013) showed an ejection fraction of 60%, She has improved with IV Lasix and her daily weight is decreased 5kg since admission. We have placed her back on oral Lasix today. An echocardiogram is pending. (2) Acute and chronic respiratory failure with hypoxia Assessment & Plan: Baseline is 3L O2, but she is currently needing 4L. (3) Pulmonary embolism *Optional Permanent Comment*: 02/14: subsegmental Last Edited By: Lucy Curtis MD on Apr 08, 2018 08:49 Status: Chronic Assessment & Plan: She is on chronic treatment with Eliquis. (4) Myelodysplastic syndrome, unspecified Status: Chronic Assessment & Plan: Hgb/Hct have dropped further. She did receive 2 units of red cells and also required chelation treatment secondary to her previous transfusion history. (5) Type II diabetes mellitus Status: Chronic Assessment & Plan: She is on chronic treatment with Lantus, Linzess, and glimepiride. She is currently receiving Lantus and sliding scale level #1 Exam Sepsis Risk: No Definite Risk ARASH YATES DO Apr 12, 2018 09:24
[2018-04-12] MEDS: INSULIN HUM LISPRO 100 UN/ML 3 ML VIAL SUBQ PRN ×3 (11:25→20:59)
--- NOTE | 2018-04-12 11:58 | Medical Nutrition Therapy ---
Nutrition Anthropometrics Height (Inches): 61.00 Height (Calculated Centimeters: 154.250049 Weight (Pounds): 140 Weight (Calculated Kilograms): 63.673 BMI: 26.5 Charles Nutrition Score: Adequate Charles Nutrition Risk Score: 19 Dietary Referral Nutrition Risk Factors: Special Diet Nutrition Risk Comment: diabetes Physical Findings Physical Appearance: Overweight BMI 25-29 Skin Appearance Skin Appearance: Edema Edema Location Modifier: Both Edema Location: Lower Extremity Type of Edema: Degree of Edema: 1+ Gastrointestinal Symptoms GI Symtoms: Constipation Tube Present: Bowel Sounds: Recent Bowel Pattern: Stool Characteristics: Nutrition/Food History No Significant Nutr. HX Nutritional Diagnosis Nutritional Risk Acuity 2: CHF w/Complication, Blood Glucose > 300mg/dl Nutritional Risk Acuity 3: Fair Appetite Past Medical History: Hx of dysphagia, restless leg syndrome, asthma, GERD, cholecystectomy, kidney stones, myelodysplasia, hemochromatosis, hypothyroid, CAD, HTN, T2DM. Nutritional Acuity: 2-Moderate Nutrition Diagnosis: Decreased Nutrient Needs Nutrition Etiology: Physiological Causes Nutrition Problem/Etiology/Sym: Decreased Nutrient Needs r/t heart failure AEB Conditions associated with a diagnosis or treatment that require a specific type and/or amount of nutrient, e.g., heart failure (sodium, fluid) Energy Requirement: 1655 ([place]-St Jeor: Actual BW X 1.6) Protein Requirement: 64 (Actual BW Kg X 1.0) Diet Type: 2 Gram Sodium (NA), Fluid Restricted Nutrition Intervention: Change diet Drug: Diuretics Nutrition Monitoring & Eval Nutrition Goals: Eat 75-100% Meal RD Patient Assessment Time: [address] Assessment Type: RD Assessment Patient Nutrition Acuity: 2-Moderate Follow Up Date: Apr 15, 2018 Nutritional Comment: 04/11 Pt admitted with CHF and BNP of 1210. Pt has 2+ edema LE. Anticipate wt loss when edema resolved. Pt is recieving 2gm Na, fluid rest diet and eating 75-100% of meals. Recommend add diabetic diet r/t elevated BG up to 322. Pt is recieving insulin. Pt is on K+ depleting duiretic. Current K+ is WNR at 3.5. Will cont to monitor and encourage intake. BK 04/12/18 Alb 2.5, Glu 191. Continues to consume 75-100% of meals. Follow labs, intake, etc. -ANDRE VALERIO Apr 12, 2018 11:58
[2018-04-12] MEDS ORDERED: INFLUENZA VIRUS VAC 0.5ML SYR IM ONLY ONE (14:15)
[2018-04-12 16:40] VITALS: BP 120/61
[2018-04-12 19:07] VITALS: BP 113/60
[2018-04-12] MEDS: ATORVASTATIN 10 MG TAB PO SCH (20:52)
[2018-04-12] MEDS: INSULIN GLARGINE 100 U/ML 3 ML PEN SUBQ SCH (20:53)
[2018-04-12 23:00] VITALS: BP 103/63
[2018-04-13 03:09] VITALS: BP 109/53
[2018-04-13] MEDS: LEVOTHYROXINE SOD 0.075 MG TAB PO SCH (05:28)
[2018-04-13 05:44] LABS: PLATELET COUNT, AUTOMATED 177 K/uL (150-450)
[2018-04-13 07:32] VITALS: BP 113/74
[2018-04-13] MEDS: CYANOCOBALAMIN 1000 MCG TAB PO SCH (08:25)
[2018-04-13] MEDS: CALCIUM CARBONATE 600 MG TAB PO SCH (08:25)
[2018-04-13] MEDS: ASPIRIN 81 MG CHEW PO SCH (08:25)
[2018-04-13] MEDS: BISACODYL 5 MG TABEC PO SCH (08:25)
[2018-04-13] MEDS: FUROSEMIDE 20 MG TAB PO SCH (08:25)
[2018-04-13] MEDS: POLYETHYLENE GLYCOL 17 GM PKT PO SCH (08:25)
[2018-04-13] MEDS: FOLIC ACID 1 MG TAB PO SCH (08:25)
[2018-04-13] MEDS: LISINOPRIL 5 MG TAB PO SCH (08:25)
[2018-04-13] MEDS: DIGOXIN 0.125 MG TAB PO SCH (08:25)
[2018-04-13] MEDS: APIXABAN 2.5 MG TABLET PO SCH (08:26)
[2018-04-13] MEDS ORDERED: FUROSEMIDE 20 MG TAB PO ONE (10:10)
[2018-04-13 11:24] VITALS: BP 121/49
[2018-04-13] MEDS: INSULIN HUM LISPRO 100 UN/ML 3 ML VIAL SUBQ PRN (11:49)
[2018-04-13] MEDS ORDERED: FURO-45 PO (13:53)
--- NOTE | 2018-04-13 14:03 | Hospitalist Depart ---
Discharge Summary Reason for Hosp/Final Diag: (1) Acute diastolic (congestive) heart failure Hospital Course & Plan: She did present with increased shortness of breath. Her BNP was elevated and her chest x-ray showed pulmonary edema. Her most recent echocardiogram (2013) showed an ejection fraction of 60%, She has improved with IV Lasix and her daily weight is decreased 5kg since admission. We have placed her back on oral Lasix today. An echocardiogram shows EF 40%, elevated RVSP, severe mitral regurgitation, moderate tricuspid regurgitation, this is what patient reported as she did have outside imaging since 2013 that had demonstrated this. Her home dose of Lasix was increased to 40mg once daily. Weight at d/c 63.5kg. (2) Acute and chronic respiratory failure with hypoxia Hospital Course & Plan: Baseline is 3L O2, but she is currently needing 4L. She is less hypoxic with ambulation. Likely represents worsening of chronic medical conditions. (3) Pulmonary embolism *Optional Permanent Comment*: 02/14: subsegmental Last Edited By: Lucy Moya MD on Apr 08, 2018 08:49 Status: Chronic Hospital Course & Plan: She is on chronic treatment with Eliquis. (4) Myelodysplastic syndrome, unspecified Status: Chronic Hospital Course & Plan: Hgb/Hct had dropped further. She did receive 2 units of red cells and also required chelation treatment secondary to her previous transfusion history. Symptoms improved. (5) Type II diabetes mellitus Status: Chronic Hospital Course & Plan: She is on chronic treatment with Lantus, Linzess, and glimepiride. Resume medications on discharge. Departure Weight (Pounds): 140 Weight (Ounces): 6.0 Result Diagram: 04/13/1828 04/13/18527 Condition: Improved Discharge: Home Health Home Health RN Follow Up For: Medication Management, Other ([facility] on 04.16 or 04.17 to monitor renal function on new dose Lasix, result to Dr Moya's office) Discharge Instructions Home Meds Active Scripts Digoxin (Digox) 125 Mcg Tablet, 0.125 MG PO QDAY for 10 Days, #90 TAB 3 Refills Prov:LUCY MOYA MD 04/08/18 [place], Insulin Disposable (INSULIN PEN NEEDLE) 1 Each Dis.needle, EACH MC DAILY, #1 Prov:LUCY MOYA MD 03/12/18 Insulin Glargine (LANTUS) 100 Unit/Ml Soln, 10 UNIT SUBQ DAILY, #1 BOX 0 Refills Prov:LUCY MOYA MD 03/12/18 Lisinopril (LISINOPRIL) 5 Mg Tablet, 5 MG PO DAILY, #90 TAB 1 Refill Prov:LUCY MOYA MD 02/26/18 Glimepiride (GLIMEPIRIDE) 2 Mg Tablet, 3 TAB PO QDAY, #270 TAB 1 Refill Prov:LUCY MOYA MD 02/26/18 Furosemide (FUROSEMIDE) 20 Mg Tablet, 1 TAB PO DAILY, #90 TAB 3 Refills Prov:LUCY MOYA MD 02/25/18 Atorvastatin Calcium (ATORVASTATIN CALCIUM) 10 Mg Tablet, 1 TAB PO QDAY, #90 TAB 3 Refills Prov:LUCY MOYA MD 02/21/18 Folic Acid (FOLIC ACID) 1 Mg Tablet, 1 MG PO QDAY for low hgb, #90 TAB 3 Refills Prov:LUCY MOYA MD 09/13/17 Levothyroxine Sodium (LEVOTHYROXINE SODIUM) 75 Mcg Tablet, 1 TAB PO QDAY, #90 TAB 4 Refills Prov:LUCY MOYA MD 08/30/17 Linaclotide (LINZESS) 145 Mcg Capsule, 1 CAP PO DAILY, #90 CAPSULE 3 Refills Prov:LUCY MOYA MD 06/29/17 Reported Medications Aspirin (ASPIRIN) 81 Mg Tab.chew, 81 MG PO QDAY, TAB.CHEW 04/10/18 Polyethylene Glycol 8000 (POLYETHYLENE GLYCOL) 500 Gm Powder, 17 GM PO DAILY 02/14/18 Bisacodyl (DULCOLAX) 5 Mg Tablet.dr, 10 MG PO DAILY PRN for CONSTIPATION 02/14/18 Apixaban (ELIQUIS) 5 Mg Tablet, 5 MG PO BID, #60 TAB 02/14/18 Saline (AYR SALINE NASAL GEL) 14.1 Gm Gel, 14.1 GM NA DAILY, GEL 07/30/17 [place]-3 Fatty Acids/Fish Oil (OMEGA 3 1,000 MG SOFTGEL) 1 Each Capsule, 2 EACH PO QDAY, CAPSULE 07/30/17 Cyanocobalamin (Vitamin B-12) (Vitamin B12) 2,500 Mcg Tablet, 1 TAB PO DAILY 02/22/16 Guaifenesin (MUCINEX) 600 Mg Tablet.er, PO PRN 04/15/15 Calcium Carbonate (Calcium) 600 Mg Tablet, 1 TAB PO DAILY, 0 Refills 08/11/10 Multivitamins W-Minerals (Multiple Vitamin) 1 Tab Tablet, 1 TAB PO DAILY, 0 Refills 08/11/10 Venous Thromboembolism Antithrombotics Is Pt On Any Antithrombotics?: Yes Heart Failure Ejection Fraction %: 40 Is Patient on HERIBERTO Inhibitor?: Yes Weight (Pounds): 140 [id number] Certification Face to Face Home Health Certification Institutional Provider conducted the [id number] encounter. Electronic Undersigning Physician Certifies Home Health. I certify that the patient has been under my care and that I had a [id number] encounter that meets the physician [id number] encounter requirements with this patient. This patient is home-bound due to safety issues and continues to require assistance with ADL's. I certify that based on my findings, that Nursing, Aides and the following Home Health services are medically necessary: Medication management and compliance, heart failure monitoring. BMP to be drawn and resulted to PCP Dr Moya's office on Sunday or 04.16 or Medical Necessity: Nursing Date Face to Face Conducted: Apr 13, 2018 KEVIN CULLEN DO Apr 13, 2018 14:03
[2018-04-13] MEDS ORDERED: HEPARIN FLSH (PORT) 500 UN/5ML ONE (14:38)
[2018-04-14] MEDS ORDERED: FUROSEMIDE 20 MG TAB PO SCH (09:00)
== END 2018-04-13 16:05 | disposition home health service (06) | DRG 291 ==
LOC: ER 10:27 → MED 12:18
PROVIDERS: ADMIT Internal Medicine; ATTEND Internal Medicine
PROC: 5A09357 Assistance with Respiratory Ventilation, Less than 24 Consecutive Hours, Continuous Positive Airway Pressure (ICD-10-PCS; principal; 2018-04-10)
PROC: 30233N1 Transfusion of Nonautologous Red Blood Cells into Peripheral Vein, Percutaneous Approach (ICD-10-PCS; 2018-04-11)
DX: I11.0 Hypertensive heart disease with heart failure (principal); J96.21 Acute and chronic respiratory failure with hypoxia; I50.43 Acute on chronic combined systolic (congestive) and diastolic (congestive) heart failure; I34.0 Nonrheumatic mitral (valve) insufficiency; I07.1 Rheumatic tricuspid insufficiency; D46.9 Myelodysplastic syndrome, unspecified; I25.119 Atherosclerotic heart disease of native coronary artery with unspecified angina pectoris; E11.9 Type 2 diabetes mellitus without complications; G47.33 Obstructive sleep apnea (adult) (pediatric); Z23 Encounter for immunization; Z79.4 Long term (current) use of insulin; Z86.711 Personal history of pulmonary embolism; Z88.8 Allergy status to other drugs, medicaments and biological substances
CPT/HCPCS: 36416; 71046; 82040; 82247; 82310; 82374; 82435; 82565; 82947; 82948; 83880; 84075; 84132; 84155; 84295; 84450; 84460; 84484; 84520; 85014; 85018; 85025; 85610; 85730; 86850; 86900; 86901; 86920; 90674; 93005; 93306; 94640; 96374; 97162; 97166; 99284; J0895; J1815; J1940; J7040; J7050; P9016

== ENCOUNTER 2018-04-10 15:49 | Outpatient (RCR) | payer MEDICARE, OTHER ==
[2018-03-10 11:48] VITALS: BMI 27.4
[~2018-04-10 15:49] MED LIST changes: +ASPI81TA94 PO
== END 2018-04-11 11:53 | disposition home or self-care (01) ==
LOC: SPU 15:49
PROVIDERS: ATTEND Internal Medicine Medical Oncology
DX: D46.9 Myelodysplastic syndrome, unspecified (principal); D53.9 Nutritional anemia, unspecified; Z28.9 Immunization not carried out for unspecified reason; R53.83 Other fatigue; R42 Dizziness and giddiness; E83.110 Hereditary hemochromatosis; Z23 Encounter for immunization

== ENCOUNTER 2018-05-02 11:58 | Inpatient (IN) | payer MEDICARE, OTHER ==
[2018-03-10 11:48] VITALS: Ht 157.5 cm; Wt 59.6 kg
[~2018-05-02] VITALS: Ht 157.5 cm; Wt 59.6 kg
[2018-05-02] VITALS (26 sets, daily range): BP systolic 60–145; BP diastolic 43–92
--- NOTE | 2018-05-02 12:32 | ER Report ---
History and Physical Time Seen By MD: 12:15 Hx. of Stated Complaint: PT REPORTS DIZZINESS, CHEST TIGHTNESS, [facility]ENTER REPORTS TACHYCARDIA HPI/ROS CHIEF COMPLAINT: Chest pain HISTORY OF PRESENT ILLNESS: Patient is currently under treatment for myelodysplastic syndrome. She notes that she has had 2 days of constant epigastric pain that radiates to the chest. Pain feels like a pressure and is moderate. It is worsened by eating and by activity though she notes she did light a bit of activity around the house yesterday and did not have increased pain. The discomfort is associated with lightheadedness but not shortness of breath, does not radiate to the back, no diaphoresis or vomiting. Patient has not had similar pain in the past. Patient has not had history of [place]. Patient does have CHF and is on oxygen. Patient has also had history of blood clots and is on Elequis. She has atrial fibrillation and is on digoxin. She has actually needed less of her home O2 and has titrated this down over the past couple days. She also notes that given her fluid intake is low, her peripheral edema has diminished. Patient was at oncology center today to get blood draw and determine if she needed transfusion when she was noted to be tachycardic and have chest pain and was thus sent here. REVIEW OF SYSTEMS: Constitutional: No fever, no chills. Eyes: No discharge. ENT: No sore throat. Cardiovascular: above Respiratory: mild nonproductive cough today. No notable shortness of breath Gastrointestinal: epigastric pain as above Genitourinary: no dysuria Musculoskeletal: No back pain. Skin: No rashes. Neurological: No headache. Remainder of the 14 system rev: Yes Allergies: Coded Allergies: meclizine (Verified Allergy, Intermediate, Dizziness, 04/10/18) chlorpheniramine (Verified Allergy, Unknown, 04/10/18) pseudoephedrine (Verified Allergy, Unknown, 04/10/18) Home Meds Active Scripts [place], Insulin Disposable (INSULIN PEN NEEDLE) 1 Each Dis.needle, EACH MC DAILY, #11 3 Refills Prov:LUCY MOYA MD 04/18/18 Furosemide (FUROSEMIDE) 20 Mg Tablet, 40 MG PO QDAY for 30 Days, #60 TAB Prov:KEVIN CULLEN DO 04/13/18 Digoxin (Digox) 125 Mcg Tablet, 0.125 MG PO QDAY for 10 Days, #90 TAB 3 Refills Prov:LUCY MOYA MD 04/08/18 Insulin Glargine (LANTUS) 100 Unit/Ml Soln, 10 UNIT SUBQ DAILY, #1 BOX 0 Refills Prov:LUCY MOYA MD 03/12/18 Lisinopril (LISINOPRIL) 5 Mg Tablet, 5 MG PO DAILY, #90 TAB 1 Refill Prov:LUCY MOYA MD 02/26/18 Glimepiride (GLIMEPIRIDE) 2 Mg Tablet, 3 TAB PO QDAY, #270 TAB 1 Refill Prov:LUCY MOYA MD 02/26/18 Atorvastatin Calcium (ATORVASTATIN CALCIUM) 10 Mg Tablet, 1 TAB PO QDAY, #90 TAB 3 Refills Prov:LUCY MOYA MD 02/21/18 Folic Acid (FOLIC ACID) 1 Mg Tablet, 1 MG PO QDAY for low hgb, #90 TAB 3 Refills Prov:LUCY MOYA MD 09/13/17 Levothyroxine Sodium (LEVOTHYROXINE SODIUM) 75 Mcg Tablet, 1 TAB PO QDAY, #90 TAB 4 Refills Prov:LUCY MOYA MD 08/30/17 Linaclotide (LINZESS) 145 Mcg Capsule, 1 CAP PO DAILY, #90 CAPSULE 3 Refills Prov:LUCY MOYA MD 06/29/17 Reported Medications Aspirin (ASPIRIN) 81 Mg Tab.chew, 81 MG PO QDAY, TAB.CHEW 04/10/18 Polyethylene Glycol 8000 (POLYETHYLENE GLYCOL) 500 Gm Powder, 17 GM PO DAILY 02/14/18 Bisacodyl (DULCOLAX) 5 Mg Tablet.dr, 10 MG PO DAILY PRN for CONSTIPATION 02/14/18 Apixaban (ELIQUIS) 5 Mg Tablet, 5 MG PO BID, #60 TAB 02/14/18 Saline (AYR SALINE NASAL GEL) 14.1 Gm Gel, 14.1 GM NA DAILY, GEL 07/30/17 [place]-3 Fatty Acids/Fish Oil (OMEGA 3 1,000 MG SOFTGEL) 1 Each Capsule, 2 EACH PO QDAY, CAPSULE 07/30/17 Cyanocobalamin (Vitamin B-12) (Vitamin B12) 2,500 Mcg Tablet, 1 TAB PO DAILY 02/22/16 Guaifenesin (MUCINEX) 600 Mg Tablet.er, PO PRN 04/15/15 Calcium Carbonate (Calcium) 600 Mg Tablet, 1 TAB PO DAILY, 0 Refills 08/11/10 Multivitamins W-Minerals (Multiple Vitamin) 1 Tab Tablet, 1 TAB PO DAILY, 0 Refills 08/11/10 Reviewed Nurses Notes: Yes Old Medical Records Reviewed: Yes Hx Smoking: No Smoking Status: Never Smoker Exposure to Second Hand Smoke?: Yes (ALL HER LIFE.) Hx Substance Use Disorder: No Hx Alcohol Use: No Constitutional Vital Sign - Last 24 Hours 05/02/18 05/02/18 05/02/18 05/02/18 11:58 12:06 12:08 12:13 Temp 98.1 Pulse ??? 142 115 Resp 18 9 B/P (MAP) 93/71 (78) 93/71 Pulse Ox 99 99 O2 Delivery Nasal Cannula 05/02/18 05/02/18 05/02/18 05/02/18 12:15 12:15 12:20 12:28 Pulse 111 Resp 37 B/P (MAP) 77/59 (65) 72/53 (59) Pulse Ox 89 O2 Flow Rate 2.5 05/02/18 05/02/18 05/02/18 05/02/18 12:40 12:43 12:50 12:58 Pulse 126 106 Resp 25 12 B/P (MAP) 110/56 (74) 76/50 (59) Pulse Ox 88 97 05/02/18 05/02/18 05/02/18 05/02/18 13:00 13:10 13:13 13:20 Pulse ??? B/P (MAP) 89/54 (66) ???/??? (1665) 94/56 (69) 05/02/18 05/02/18 05/02/18 05/02/18 13:28 13:30 13:40 13:43 Pulse 105 92 Resp 20 19 B/P (MAP) 89/51 (64) 100/75 (83) Pulse Ox 99 100 05/02/18 05/02/18 05/02/18 05/02/18 13:50 13:55 14:00 14:10 Pulse 101 118 Resp ? B/P (MAP) 97/87 (90) 81/62 (68) 106/90 (95) Pulse Ox ? Physical Exam General Appearance: The patient is alert, has no immediate need for airway protection and no signs of toxicity. Eyes: Pupils equal and round no pallor or injection. ENT, Mouth: Mucous membranes are moist. Respiratory: There are no retractions, lungs are clear to auscultation. Cardiovascular: tachycardic, irregular rhythm Gastrointestinal: epgastric and luq ttp without masses or peritoneal sgs Neurological: alert, no focal deficits Skin: Warm and dry, no rashes. Musculoskeletal: Extremities are nontender; mild peripheral edema bilaterally and have full range of motion. DIFFERENTIAL DIAGNOSIS: After history and physical exam differential diagnosis was considered for chest pain including but not limited to myocardial ischemia, pericarditis pulmonary embolus, chest wall pain, pleural inflammation and pulmonary infectious causes.shortness of breath including but not limited to pulmonary infectious process, COPD, asthma, pulmonary embolus and congestive heart failure. Arrhythmia Medical Decision Making Data Points Laboratory Hematology Test 06/17/15 00:00 05/02/18 12:42 05/02/18 13:10 Neutrophils # 2.6 th/mm3 Hematocrit 9.0 g/dl Hemoglobin 27.4 g/dl Platelet Count 306 th/mm3 White Blood Count 4.2 th/mm3 Albumin 4.7 g/dl Alkaline Phosphatase 77 IU/L Alanine Aminotransferase (ALT/SGPT) 25 u/L Aspartate Amino Transf (AST/SGOT) 19 gloria/L Blood Urea Nitrogen 16 mg/dl Calcium Level 9.5 mg/dl Chloride Level 96 mmol/L Carbon Dioxide Level 26 mmol/L Creatinine 0.72 mg/dl Glucose Level 86 mg/dl Potassium Level 4.1 mmol/L Sodium Level 138 mmol/L Total Protein 6.4 g/dl Total Bilirubin 0.9 mg/dl B-Type Natriuretic Peptide 727 pg/ml (0-100) Lipase 13 U/L (23-300) Digoxin Level 0.9 ng/ml Digoxin Last Dose Date 05/01/18 Digoxin Last Dose Time 1999 Urine Color Yellow Urine Clarity Clear Urine pH 7.0 pH (4.8-9.5) Urine Specific Reading 1.006 Urine Protein Negative mg/dL (NEGATIVE) Urine Glucose (UA) Negative mg/dL (NEGATIVE) Urine Ketones Negative mg/dL (NEGATIVE) Urine Blood Negative (NEGATIVE) Urine Nitrite Negative (NEGATIVE) Urine Bilirubin Negative (NEGATIVE) Urine Urobilinogen Negative mg/dL (0.2-1.9) Urine Leukocyte Esterase Negative (NEGATIVE) Urine RBC None /HPF (0-2/HPF) Urine WBC <1 /HPF (0-5/HPF) Urine Squamous Epithelial Cells Few /LPF (</=FEW) Urine Bacteria Negative /HPF (NONE-FEW) Urine Hyaline Casts Few /LPF (NONE-FEW) Urine Mucus None /HPF (NONE-FEW) Chemistry Test 06/17/15 00:00 05/02/18 12:42 05/02/18 13:10 Neutrophils # 2.6 th/mm3 Hematocrit 9.0 g/dl Hemoglobin 27.4 g/dl Platelet Count 306 th/mm3 White Blood Count 4.2 th/mm3 Albumin 4.7 g/dl Alkaline Phosphatase 77 IU/L Alanine Aminotransferase (ALT/SGPT) 25 u/L Aspartate Amino Transf (AST/SGOT) 19 gloria/L Blood Urea Nitrogen 16 mg/dl Calcium Level 9.5 mg/dl Chloride Level 96 mmol/L Carbon Dioxide Level 26 mmol/L Creatinine 0.72 mg/dl Glucose Level 86 mg/dl Potassium Level 4.1 mmol/L Sodium Level 138 mmol/L Total Protein 6.4 g/dl Total Bilirubin 0.9 mg/dl B-Type Natriuretic Peptide 727 pg/ml (0-100) Lipase 13 U/L (23-300) Digoxin Level 0.9 ng/ml Digoxin Last Dose Date 05/01/18 Digoxin Last Dose Time 2000 Urine Color Yellow Urine Clarity Clear Urine pH 7.0 pH (4.8-9.5) Urine Specific Reading 1.006 Urine Protein Negative mg/dL (NEGATIVE) Urine Glucose (UA) Negative mg/dL (NEGATIVE) Urine Ketones Negative mg/dL (NEGATIVE) Urine Blood Negative (NEGATIVE) Urine Nitrite Negative (NEGATIVE) Urine Bilirubin Negative (NEGATIVE) Urine Urobilinogen Negative mg/dL (0.2-1.9) Urine Leukocyte Esterase Negative (NEGATIVE) Urine RBC None /HPF (0-2/HPF) Urine WBC <1 /HPF (0-5/HPF) Urine Squamous Epithelial Cells Few /LPF (</=FEW) Urine Bacteria Negative /HPF (NONE-FEW) Urine Hyaline Casts Few /LPF (NONE-FEW) Urine Mucus None /HPF (NONE-FEW) Toxicology Test 05/02/18 12:42 Digoxin Level 0.9 ng/ml Digoxin Last Dose Date 05/01/18 Digoxin Last Dose Time 1999 Urinalysis Test 05/02/18 13:10 Urine Color Yellow Urine Clarity Clear Urine pH 7.0 pH (4.8-9.5) Urine Specific Reading 1.006 Urine Protein Negative mg/dL (NEGATIVE) Urine Glucose (UA) Negative mg/dL (NEGATIVE) Urine Ketones Negative mg/dL (NEGATIVE) Urine Blood Negative (NEGATIVE) Urine Nitrite Negative (NEGATIVE) Urine Bilirubin Negative (NEGATIVE) Urine Urobilinogen Negative mg/dL (0.2-1.9) Urine Leukocyte Esterase Negative (NEGATIVE) Urine RBC None /HPF (0-2/HPF) Urine WBC <1 /HPF (0-5/HPF) Urine Squamous Epithelial Cells Few /LPF (</=FEW) Urine Bacteria Negative /HPF (NONE-FEW) Urine Hyaline Casts Few /LPF (NONE-FEW) Urine Mucus None /HPF (NONE-FEW) EKG/Imaging EKG Interpretation 12 lead EKG: Rhythm: atrial fibillation Creole: normal QRS: normal ST segments: normal st elevation v2, flipped t's, 1, ii, avl,v5, v6 Monitor Interpretation: Atrial Fibrillation ED Course/Re-evaluation ED Course Pt presents with afib with rvr and hypotension in face of chf reported last EF 40%; Last hospitalization; discharged Apr 13 showed: (1) Acute diastolic (congestive) heart failure Hospital Course & Plan: She did present with increased shortness of breath. Her BNP was elevated and her chest x-ray showed pulmonary edema. Her most recent echocardiogram (2013) showed an ejection fraction of 60%, She has improved with IV Lasix and her daily weight is decreased 5kg since admission. We have placed her back on oral Lasix today. An echocardiogram shows EF 40%, elevated RVSP, severe mitral regurgitation, moderate tricuspid regurgitation, this is what patient reported as she did have outside imaging since 2013 that had demonstrated this. Her home dose of Lasix was increased to 40mg once daily. Weight at d/c 63.5kg. (2) Acute and chronic respiratory failure with hypoxia Hospital Course & Plan: Baseline is 3L O2, but she is currently needing 4L. She is less hypoxic with ambulation. Likely represents worsening of chronic medical conditions. (3) Pulmonary embolism *Optional Permanent Comment*: 02/14: subsegmental Last Edited By: Lucy Moya MD on Apr 08, 2018 08:49 Status: Chronic Hospital Course & Plan: She is on chronic treatment with Eliquis. (4) Myelodysplastic syndrome, unspecified Status: Chronic Hospital Course & Plan: Hgb/Hct had dropped further. She did receive 2 units of red cells and also required chelation treatment secondary to her previous transfusion history. Symptoms improved. (5) Type II diabetes mellitus Status: Chronic Hospital Course & Plan: She is on chronic treatment with Lantus, Linzess, and glimepiride. Resume medications on discharge. Given EF 40%, increased BNP, will await dig level and attempt to manage with dig, reassess. Decision to Disposition Date: May 02, 2018 Decision to Disposition Time: 14:00 Depart Departure Latest Vital Signs Vital Signs Date Time Temp Pulse Resp B/P (MAP) Pulse Ox O2 Delivery O2 Flow Rate FiO2 05/02/18 14:10 118 ??? 106/90 (95) ??? 05/02/18 12:15 2.5 05/02/18 12:08 98.1 Nasal Cannula Impression: Primary Impression: Atrial fibrillation with RVR Condition: Stable Disposition: Admitted from ER Referrals: LUCY MOYA MD (PCP) BOBY ALY MD May 02, 2018 12:32
--- NOTE | 2018-05-02 14:04 | EKG ---
FACILITY: [facility] - [place] PATIENT NAME: FRANCOIS LLAMAS : [id number] MR: [id number] V: [id number] EXAM DATE: ORDERING PHYSICIAN: BOBY ALY TECHNOLOGIST: TERE Moody Reason : Blood Pressure : / mmHG Vent. Rate : 137 BPM Atrial Rate : 308 BPM P-R Int : 000 ms QRS Dur : 090 ms QT Int : 310 ms P-R-T Axes : 000 035 199 degrees QTc Int : 468 ms Atrial fibrillation/flutter with rapid ventricular response T wave abnormality, consider inferolateral ischemia Abnormal ECG Confirmed by AMARJIT GODOY ([id number] on 05/02/2018 3:51:49 PM Referred By: Confirmed By:AMARJIT GODOY
--- NOTE | 2018-05-02 14:23 | RADIOLOGY IMAGING REPORT ---
FACILITY: [facility] PATIENT NAME: Mala Villela : 1935 MR: [id number] V: [id number] EXAM DATE: ORDERING PHYSICIAN: BOBY ALY TECHNOLOGIST: Location: [facility] [place] Patient: Mala Villela : 1935 Visit/Account:[id number] Date of Sevice: 05/02/2018 Exam type: CHEST SINGLE AP History: chest pain Comparison: April 10, 2018. Findings: There is mild interstitial process upper lungs although appears less prominent when compared to Decem 2017. There is no evidence of focal infiltrates or pleural effusions. The cardiac silhouett e appears enlarged but unchanged. This calcination the aortic knob. There are old bilateral rib fra ctures present implanted right IJ port distal tip projects over this. Vena cava. IMPRESSION: 1. Mild interstitial prominence seen throughout the lungs although is likely prominent azygos actual ly appears less prominent when compared to April 10, 2018 Cardiomegaly unchanged Report Dictated By: Jennifer Guzman MD at 05/02/2018 2:17 PM Report E-Signed By: Jennifer Guzman MD at 05/02/2018 2:19 PM WSN:[email or web address]
[2018-05-02] MEDS ORDERED: DIGOXIN 0.5 MG/2 ML AMP IVP ONE (15:05)
[2018-05-02] MEDS ORDERED: ACETAMINOPHEN 325 MG TAB PO PRN (15:05)
[2018-05-02] MEDS ORDERED: FLUSH 10 ML SYR IVP PRN (15:05)
--- NOTE | 2018-05-02 15:33 | History & Physical ---
History of Present Illness Chief Complaint "My chest is tight" History of Present Illness 82yo female with PMHx significant for transfusion dependent myelodysplasia, episodic a-fib, PE, mitral regurgitation, type 2 DM, CAD, CHF. She reports onset of chest tightness over the past 2-3 days. She denied chest pain, but has had some mild dyspnea. She was aware of elevated heart rate. She had difficulty sleeping/laying flat. Her chronic LE edema is reported to be improved lately. [facility] and noted to have elevated HR and borderline low BPs. She was referred to the ER and found to be in rapid a-fib with HR in 130-150 range. Her SBPs have been in 90-100s. She denies any dizziness/lighthe adedness currently. Her troponin was slightly elevated at 0.039 and BNP elevated at 727. She is on digoxin with a current level of 0.9. She is also on Eliquis 5mg BID. She was recommended for admission. 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 (9) Iron overload due to repeated red blood cell transfusions Status: Chronic (10) Severe mitral regurgitation Status: Chronic (11) Atrial fibrillation with RVR Status: Acute (12) Congestive heart failure Status: Chronic (13) DJD (degenerative joint disease), lumbar Status: Chronic (14) Degenerative joint disease of knee, left Status: Chronic Home Meds Active Scripts [place], Insulin Disposable (INSULIN PEN NEEDLE) 1 Each Dis.needle, EACH MC DAILY, #11 3 Refills Prov:LUCY CURTIS MD 04/18/18 Furosemide (FUROSEMIDE) 20 Mg Tablet, 40 MG PO QDAY for 30 Days, #60 TAB Prov:KEVIN CULLEN DO 04/13/18 Digoxin (Digox) 125 Mcg Tablet, 0.125 MG PO QDAY for 10 Days, #90 TAB 3 Refills Prov:LUCY CURTIS MD 04/08/18 Insulin Glargine (LANTUS) 100 Unit/Ml Soln, 10 UNIT SUBQ DAILY, #1 BOX 0 Refills Prov:LUCY CURTIS MD 03/12/18 Lisinopril (LISINOPRIL) 5 Mg Tablet, 5 MG PO DAILY, #90 TAB 1 Refill Prov:LUCY CURTIS MD 02/26/18 Glimepiride (GLIMEPIRIDE) 2 Mg Tablet, 3 TAB PO QDAY, #270 TAB 1 Refill Prov:LUCY CURTIS MD 02/26/18 Atorvastatin Calcium (ATORVASTATIN CALCIUM) 10 Mg Tablet, 1 TAB PO QDAY, #90 TAB 3 Refills Prov:LUCY CURTIS MD 02/21/18 Folic Acid (FOLIC ACID) 1 Mg Tablet, 1 MG PO QDAY for low hgb, #90 TAB 3 Refills Prov:LUCY CURTIS MD 09/13/17 Levothyroxine Sodium (LEVOTHYROXINE SODIUM) 75 Mcg Tablet, 1 TAB PO QDAY, #90 TAB 4 Refills Prov:LUCY CURTIS MD 08/30/17 Linaclotide (LINZESS) 145 Mcg Capsule, 1 CAP PO DAILY, #90 CAPSULE 3 Refills Prov:LUCY CURTIS MD 06/29/17 Reported Medications Aspirin (ASPIRIN) 81 Mg Tab.chew, 81 MG PO QDAY, TAB.CHEW 04/10/18 Polyethylene Glycol 8000 (POLYETHYLENE GLYCOL) 500 Gm Powder, 17 GM PO DAILY 02/14/18 Bisacodyl (DULCOLAX) 5 Mg Tablet.dr, 10 MG PO DAILY PRN for CONSTIPATION 02/14/18 Apixaban (ELIQUIS) 5 Mg Tablet, 5 MG PO BID, #60 TAB 02/14/18 Saline (AYR SALINE NASAL GEL) 14.1 Gm Gel, 14.1 GM NA DAILY, GEL 07/30/17 [place]-3 Fatty Acids/Fish Oil (OMEGA 3 1,000 MG SOFTGEL) 1 Each Capsule, 2 EACH PO QDAY, CAPSULE 07/30/17 Cyanocobalamin (Vitamin B-12) (Vitamin B12) 2,500 Mcg Tablet, 1 TAB PO DAILY 02/22/16 Guaifenesin (MUCINEX) 600 Mg Tablet.er, PO PRN 04/15/15 Calcium Carbonate (Calcium) 600 Mg Tablet, 1 TAB PO DAILY, 0 Refills 08/11/10 Multivitamins W-Minerals (Multiple Vitamin) 1 Tab Tablet, 1 TAB PO DAILY, 0 Refills 08/11/10 Allergies: Coded Allergies: meclizine (Verified Allergy, Intermediate, Dizziness, 04/10/18) chlorpheniramine (Verified Allergy, Unknown, 04/10/18) pseudoephedrine (Verified Allergy, Unknown, 04/10/18) Patient History: FH: HTN (hypertension) MOTHER, , Age:81 FH: diabetes mellitus FATHER, , Age:49 BROTHER OR SISTER, FH: leukemia TWIN SISTER FH: prostate cancer FATHER, , Age:49 BROTHER OR SISTER, FH: stroke MOTHER, , Age:81 Hx Smoking: No Smoking Status: Never Smoker Exposure to Second Hand Smoke?: Yes (ALL HER LIFE.) Caffeine Intake: Tea Caffeine/Cups Per Day: 1-2 Hx Alcohol Use: No Hx Substance Use Disorder: No Social Drug Use: Never Review of Systems Constitutional: No Fever, No Chills Neurological: Weakness; No Syncope Eyes: No Vision Change, No Loss of Vision ENT: No Hearing Loss Cardiovascular: Palpitations; No Chest Pain Respiratory: Shortness of Breath Gastrointestinal: No Nausea, No Vomiting, No Diarrhea, No Hematemesis, No Hematochezia, No Melena, No Abdominal Pain Genitourinary: No Dysuria, No Hematuria Exam Vital Signs Vital Signs Date Time Temp Pulse Resp B/P (MAP) Pulse Ox O2 Delivery O2 Flow Rate FiO2 05/02/18 13:50 97/87 (90) 05/02/18 13:43 92 19 100 05/02/18 12:15 2.5 05/02/18 12:08 98.1 Nasal Cannula General Appearance: Alert, Awake Neuro: No Gross deficits Eyes: PERRLA ENT: Oropharynx Clear Neck: No Masses Cardiovascular: Other (Irregular tachycardic with systolic murmur) Respiratory: Other (Essentially clear ) Chest: No Tenderness, Other (Port right upper chest) GI: Abd Soft and Non-Tender : No CVA Tenderness Extremities: Warm, Perfused, Edema (trace both lower extremities) Integumentary: Generalized Fragile Skin Psych: Alert & Oriented X3 Medical Decision Making Data Points Item Value Date Time Sodium Level 135 mmol/L L 05/02/18 1100 Potassium Level 4.6 mmol/L 05/02/18 1100 Chloride Level 96 mmol/L L 05/02/18 1100 Carbon Dioxide Level 33 mmol/L H 05/02/18 1100 Blood Urea Nitrogen 26 mg/dl H 05/02/18 1100 Creatinine 0.60 mg/dl 05/02/18 1100 Glomerular Filtration Rate Calc > 60.0 05/02/18 1100 Random Glucose 421 mg/dl H 05/02/18 1100 Calcium Level 9.5 mg/dl 05/02/18 1100 Total Bilirubin 2.3 mg/dl H 05/02/18 1100 Aspartate Amino Transf (AST/SGOT) 30 U/L 05/02/18 1100 Alanine Aminotransferase (ALT/SGPT) 45 U/L 05/02/18 1100 Alkaline Phosphatase 117 U/L 05/02/18 1100 Total Protein 6.1 g/dl L 05/02/18 1100 Albumin 3.7 g/dl 05/02/18 1100 B-Type Natriuretic Peptide 727 pg/ml H 05/02/18 1242 Troponin I 0.039 ng/ml 05/02/18 1242 Lipase 13 U/L L 05/02/18 1242 White Blood Count 4.9 k/uL 05/02/18 1100 Hemoglobin 10.6 g/dL L 05/02/18 1100 Hematocrit 33.6 % L 05/02/18 1100 Platelet Count 198 K/uL 05/02/18 1100 Urine Color Yellow 05/02/18 1310 Urine Clarity Clear 05/02/18 1310 Urine pH 7.0 pH 05/02/18 1310 Urine Specific Walker 1.006 05/02/18 1310 Urine Protein Negative mg/dL 05/02/18 1310 Urine Glucose (UA) Negative mg/dL 05/02/18 1310 Urine Ketones Negative mg/dL 05/02/18 1310 Urine Blood Negative 05/02/18 1310 Urine Nitrite Negative 05/02/18 1310 Urine Bilirubin Negative 05/02/18 1310 Urine Urobilinogen Negative mg/dL 05/02/18 1310 Urine Leukocyte Esterase Negative 05/02/18 1310 Urine RBC None /HPF 05/02/18 1310 Urine WBC <1 /HPF 05/02/18 1310 Urine Squamous Epithelial Cells Few /LPF 05/02/18 1310 Urine Bacteria Negative /HPF 05/02/18 1310 Urine Hyaline Casts Few /LPF 05/02/18 1310 Urine Mucus None /HPF 05/02/18 1310 Digoxin Level 0.9 ng/ml 05/02/18 1242 Digoxin Last Dose Date 05/01/18 05/02/18 124 Digoxin Last Dose Time 199905/02/18 124 EKG / Imaging EKG Interpretation PATIENT NAME: FRANCOIS LLAMAS : [id number] MR: [id number] V: [id number] EXAM DATE: ORDERING PHYSICIAN: BOBY ALY TECHNOLOGIST: TERE Test Reason : Blood Pressure : / mmHG Vent. Rate : 137 BPM Atrial Rate : 308 BPM P-R Int : 000 ms QRS Dur : 090 ms QT Int : 310 ms P-R-T Axes : 000 035 199 degrees QTc Int : 468 ms Atrial fibrillation/flutter with rapid ventricular response T wave abnormality, consider inferolateral ischemia Abnormal ECG Confirmed by AMARJIT GODOY ([id number]) on 05/02/2018 3:51:49 PM Referred By: Confirmed By:AMARJIT GODOY Imaging PATIENT NAME: Francois Llamas : 1935 MR: [id number] V: [id number] EXAM DATE: ORDERING PHYSICIAN: BOBY ALY TECHNOLOGIST: Location: [facility] [place] Patient: Francois Llamas : 1935 Visit/Account:[id number] Date of Sevice: 05/02/2018 Exam type: CHEST SINGLE AP History: chest pain Comparison: April 10, 2018. Findings: There is mild interstitial process upper lungs although appears less prominent when compared to April 10, 2018. There is no evidence of focal infiltrates or pleural effusions. The cardiac silhouette appears enlarged but unchanged. This calcination the aortic knob. There are old bilateral rib fractures present implanted right IJ port distal tip projects over this. Vena cava. IMPRESSION: 1. Mild interstitial prominence seen throughout the lungs although is likely prominent azygos actually appears less prominent when compared to April 10, 2018 Cardiomegaly unchanged Report Dictated By: Jennifer Guzman MD at 05/02/2018 2:17 PM Report E-Signed By: Jennifer Guzman MD at 05/02/2018 2:19 PM WSN:[email or web address] Assessment and Plan Problems: (1) Atrial fibrillation with RVR Status: Acute Assessment & Plan: She has had several episodes of atrial fibrillation in the past 2 months. Will admit to the ICU as she is modestly hypotensive. Will try to get rate control with digoxin as her digoxin level is low therapeutic. If necessary will add either low dose diltiazem or metoprolol, but she may not tolerate due to low BP. Will discuss with cardiology as she has severe MR on echocardiogram - question if she is a candidate for "repair". Will continue her Eliquis. Monitor closely. Would consider cardioversion if she is unstable at all. (2) Severe mitral regurgitation Status: Chronic Assessment & Plan: Will discuss with cardiology. Question if causing LAE and contributing to her a-fib. (3) Congestive heart failure Status: Chronic Assessment & Plan: She actually does not appear to be in acute failure at this time. The diuresis may have contributed to her hypotension. Will watch closely. (4) Hypothyroidism Status: Chronic Assessment & Plan: Continue replacement therapy. Check TSH. (5) Type II diabetes mellitus Status: Chronic Assessment & Plan: Continue low dose Lantus. ADA diet. Monitor glucoses and use SSI as needed. (6) Pulmonary embolism *Optional Permanent Comment*: 02/14: subsegmental Last Edited By: Lucy Curtis MD on Apr 08, 2018 08:49 Status: Chronic Assessment & Plan: She is on chronic Eliquis therapy. (7) Myelodysplastic syndrome, unspecified Status: Chronic Assessment & Plan: She is followed in [facility]. Her Hgb/Hct are fairly stable. Monitor. Copies to: LUCY CURTIS MD; ARLEY AGUIRRE MD ; Venous Thromboembolism Antithrombotics Is Pt On Any Antithrombotics?: Yes (Eliquis) Exam Sepsis Risk: No Definite Risk AMARJIT GODOY MD May 02, 2018 15:33
[2018-05-02] MEDS: INSULIN HUM LISPRO 100 UN/ML 3 ML VIAL SUBQ PRN ×2 (17:59→21:27)
[2018-05-02] MEDS ORDERED: ATORVASTATIN 10 MG TAB PO SCH (21:00)
[2018-05-02] MEDS ORDERED: INSULIN GLARGINE 100 U/ML 3 ML PEN SUBQ SCH (21:00)
[2018-05-02] MEDS: APIXABAN 2.5 MG TABLET PO SCH (21:28)
[2018-05-03] VITALS (28 sets, daily range): BP systolic 77–129; BP diastolic 44–95
[2018-05-03] MEDS ORDERED: LEVOTHYROXINE SOD 0.075 MG TAB PO SCH (06:00)
[2018-05-03] MEDS: APIXABAN 2.5 MG TABLET PO SCH (08:45)
[2018-05-03] MEDS ORDERED: DIGOXIN 0.125 MG TAB PO SCH (09:00)
[2018-05-03] MEDS ORDERED: POLYETHYLENE GLYCOL 17 GM PKT PO SCH (09:00)
[2018-05-03] MEDS ORDERED: ASPIRIN 81 MG CHEW PO SCH (09:00)
[2018-05-03] MEDS ORDERED: INSULIN GLARGINE 100 U/ML 3 ML PEN SUBQ SCH (09:00)
[2018-05-03] MEDS: INSULIN HUM LISPRO 100 UN/ML 3 ML VIAL SUBQ PRN (12:18)
--- NOTE | 2018-05-03 13:33 | Hospitalist Depart ---
Discharge Summary Reason for Hosp/Final Diag: (1) Atrial fibrillation with RVR Status: Acute Hospital Course & Plan: She has had several episodes of atrial fibrillation in the past 2 months. She was admitted to the ICU as she was modestly hypotensive. She was given a dose of IV digoxin 0.25mg for rate control. She converted out of atrial fibrillation last night. She reports continued mild chest tightness. Repeat troponin this afternoon, shows a continual trending down from the "simon region". Will continue her Eliquis. Because of concern that LAE is contributing to the atrial fibrillation, she has close follow up with cardiology (see below) to evaluate the severe MR for a mitral clip. (2) Severe mitral regurgitation Status: Chronic Hospital Course & Plan: Dr. Michael Pascal spoke with Cardiology. They have scheduled a GA next week and then close follow up in the clinic. (3) Congestive heart failure Status: Chronic Hospital Course & Plan: She actually does not appear to be in acute failure at this time. (4) Hypothyroidism Status: Chronic Hospital Course & Plan: Continue replacement therapy. Check TSH. (5) Type II diabetes mellitus Status: Chronic Hospital Course & Plan: Continue low dose Lantus. ADA diet. (6) Pulmonary embolism *Optional Permanent Comment*: 02/14: subsegmental Last Edited By: Lucy Curtis MD on Apr 08, 2018 08:49 Status: Chronic Hospital Course & Plan: She is on chronic Eliquis therapy. (7) Myelodysplastic syndrome, unspecified Status: Chronic Hospital Course & Plan: She is followed in [facility]. Her Hgb/Hct are fairly stable. Monitor. Departure Weight (Pounds): 131 Weight (Ounces): 8.0 Item Value Date Time White Blood Count 4.2 th/mm3 06/17/15 0000 Hemoglobin 27.4 g/dl 06/17/15 0000 Hematocrit 9.0 g/dl 06/17/15 0000 Platelet Count 306 th/mm3 06/17/15 0000 Neutrophils # 2.6 th/mm3 06/17/15 0000 B-Type Natriuretic Peptide 727 pg/ml H 05/02/18 1242 Troponin I 0.039 ng/ml 05/02/18 1242 Lipase 13 U/L L 05/02/18 1242 Whole Blood Glucose 210 mg/DL H 05/02/18 1655 Troponin I 0.065 ng/ml 05/02/18 1812 Whole Blood Glucose 191 mg/DL H 05/02/18 2122 Urine RBC None /HPF 05/02/18 1310 Urine WBC <1 /HPF 05/02/18 1310 Urine Squamous Epithelial Cells Few /LPF 05/02/18 1310 Urine Bacteria Negative /HPF 05/02/18 1310 Urine Hyaline Casts Few /LPF 05/02/18 1310 Urine Mucus None /HPF 05/02/18 1310 Digoxin Level 0.9 ng/ml 05/02/18 1242 Imaging 05/02/17 CXR - 1. Mild interstitial prominence seen throughout the lungs although is likely prominent azygos actually appears less prominent when compared to April 10, 2018 Cardiomegaly unchanged EKG Vent. Rate : 137 BPM Atrial Rate : 308 BPM P-R Int : 000 ms QRS Dur : 090 ms QT Int : 310 ms P-R-T Axes : 000 035 199 degrees QTc Int : 468 ms Atrial fibrillation/flutter with rapid ventricular response T wave abnormality, consider inferolateral ischemia Abnormal ECG Confirmed by AMARJIT PASCAL ([id number]) on 05/02/2018 3:51:49 PM Condition: Improved Discharge: Home Discharge Instructions Home Meds Active Scripts [place], Insulin Disposable (INSULIN PEN NEEDLE) 1 Each Dis.needle, EACH MC DAILY, #11 3 Refills Prov:LUCY CURTIS MD 04/18/18 Furosemide (FUROSEMIDE) 20 Mg Tablet, 40 MG PO QDAY for 30 Days, #60 TAB Prov:ORIANA ARRIETAKEVIN 04/13/18 Digoxin (Digox) 125 Mcg Tablet, 0.125 MG PO QDAY for 10 Days, #90 TAB 3 Refills Prov:LUCY CURTIS MD 04/08/18 Insulin Glargine (LANTUS) 100 Unit/Ml Soln, 10 UNIT SUBQ DAILY, #1 BOX 0 Refills Prov:LUCY CURTIS MD 03/12/18 Lisinopril (LISINOPRIL) 5 Mg Tablet, 5 MG PO DAILY, #90 TAB 1 Refill Prov:LUCY CURTIS MD 02/26/18 Glimepiride (GLIMEPIRIDE) 2 Mg Tablet, 3 TAB PO QDAY, #270 TAB 1 Refill Prov:LUCY CURTIS MD 02/26/18 Atorvastatin Calcium (ATORVASTATIN CALCIUM) 10 Mg Tablet, 1 TAB PO QDAY, #90 TAB 3 Refills Prov:LUCY CURTIS MD 02/21/18 Folic Acid (FOLIC ACID) 1 Mg Tablet, 1 MG PO QDAY for low hgb, #90 TAB 3 Refills Prov:LUCY CURTIS MD 09/13/17 Levothyroxine Sodium (LEVOTHYROXINE SODIUM) 75 Mcg Tablet, 1 TAB PO QDAY, #90 TAB 4 Refills Prov:LUCY CURTIS MD 08/30/17 Linaclotide (LINZESS) 145 Mcg Capsule, 1 CAP PO DAILY, #90 CAPSULE 3 Refills Prov:LUCY CURTIS MD 06/29/17 Reported Medications Aspirin (ASPIRIN) 81 Mg Tab.chew, 81 MG PO QDAY, TAB.CHEW 04/10/18 Polyethylene Glycol 8000 (POLYETHYLENE GLYCOL) 500 Gm Powder, 17 GM PO DAILY 02/14/18 Bisacodyl (DULCOLAX) 5 Mg Tablet.dr, 10 MG PO DAILY PRN for CONSTIPATION 02/14/18 Apixaban (ELIQUIS) 5 Mg Tablet, 5 MG PO BID, #60 TAB 02/14/18 Saline (AYR SALINE NASAL GEL) 14.1 Gm Gel, 14.1 GM NA DAILY, GEL 07/30/17 [place]-3 Fatty Acids/Fish Oil (OMEGA 3 1,000 MG SOFTGEL) 1 Each Capsule, 2 EACH PO QDAY, CAPSULE 07/30/17 Cyanocobalamin (Vitamin B-12) (Vitamin B12) 2,500 Mcg Tablet, 1 TAB PO DAILY 02/22/16 Guaifenesin (MUCINEX) 600 Mg Tablet.er, PO PRN 04/15/15 Calcium Carbonate (Calcium) 600 Mg Tablet, 1 TAB PO DAILY, 0 Refills 08/11/10 Multivitamins W-Minerals (Multiple Vitamin) 1 Tab Tablet, 1 TAB PO DAILY, 0 Refills 08/11/10 Diet: Diabetic Special Instructions: [facility] at [facility], then will see in [facility]. Address: [id number] [place] [address]. [place], [place] phone [phone] Go to the ER for worsening chest tightness or heart rate above 100 beats per minute. Copies to: LUCY CURTIS MD; ARLEY AGUIRRE MD; ARASH MIRANDA MD ; Venous Thromboembolism Antithrombotics Is Pt On Any Antithrombotics?: Yes (Eliquis) GONZALES ROBBINS MD May 03, 2018 13:33
[2018-05-03] MEDS ORDERED: HEPARIN FLSH (PORT) 500 UN/5ML IVP ONE (14:35)
[2018-05-05] MEDS ORDERED: INFLUENZA VIRUS VAC 0.5ML SYR IM ONLY ONE (15:05)
== END 2018-05-03 15:30 | disposition home or self-care (01) | DRG 308 ==
LOC: ER 12:10 → ICU 14:16
PROVIDERS: ADMIT Internal Medicine; ATTEND Internal Medicine
PROC: 5A09357 Assistance with Respiratory Ventilation, Less than 24 Consecutive Hours, Continuous Positive Airway Pressure (ICD-10-PCS; principal; 2018-05-02)
DX: I48.0 Paroxysmal atrial fibrillation (principal); J96.21 Acute and chronic respiratory failure with hypoxia; E11.9 Type 2 diabetes mellitus without complications; K21.9 Gastro-esophageal reflux disease without esophagitis; E83.111 Hemochromatosis due to repeated red blood cell transfusions; I34.0 Nonrheumatic mitral (valve) insufficiency; I50.9 Heart failure, unspecified; E03.9 Hypothyroidism, unspecified; I95.9 Hypotension, unspecified; D46.9 Myelodysplastic syndrome, unspecified; I07.1 Rheumatic tricuspid insufficiency; I11.0 Hypertensive heart disease with heart failure; G47.33 Obstructive sleep apnea (adult) (pediatric); E53.9 Vitamin B deficiency, unspecified; M51.36 Other intervertebral disc degeneration, lumbar region; M17.12 Unilateral primary osteoarthritis, left knee; Z86.711 Personal history of pulmonary embolism; Z88.8 Allergy status to other drugs, medicaments and biological substances; Z79.4 Long term (current) use of insulin; Z99.81 Dependence on supplemental oxygen
CPT/HCPCS: 36415; 36416; 71045; 80162; 81001; 82040; 82247; 82310; 82374; 82435; 82565; 82947; 82948; 83690; 83880; 84075; 84132; 84155; 84295; 84443; 84450; 84460; 84484; 84520; 85025; 93005; J1160; J1642; J1815

== ENCOUNTER 2018-05-23 10:45 | Outpatient (RCR) | payer MEDICARE, OTHER ==
[2018-03-10 11:48] VITALS: BMI 27.4
--- NOTE | 2018-04-18 11:21 | NUR ---
SW administered [place] Cognitive ASsessment to get a reading on patients cognitive status. Pt scored 24/30 (normal is > 26).
[2018-04-18 11:39] LABS: PLATELET COUNT, AUTOMATED 207 K/uL (150-450)
[2018-04-18] MEDS: HEPARIN FLSH (PORT) 500 UN/5ML IVP PRN (12:30)
[2018-04-18] MEDS: LIDOCAINE/SOD BICARB 8.4% SYR ID PRN (12:30)
--- NOTE | 2018-04-19 08:15 | NUR ---
BERNARD administered a HADS form. Pt scored severe in both categories. D:12, A:13. SW will follow up with the patient about these scores at her next appointment with us.
[2018-04-25 10:51] VITALS: BP 121/60
[2018-04-25 11:22] LABS: PLATELET COUNT, AUTOMATED 174 K/uL (150-450)
[2018-04-25] MEDS: LIDOCAINE/SOD BICARB 8.4% SYR ID PRN (11:59)
[2018-04-25] MEDS: HEPARIN FLSH (PORT) 500 UN/5ML IVP PRN (11:59)
[2018-05-02 11:13] LABS: PLATELET COUNT, AUTOMATED 198 K/uL (150-450)
[2018-05-02 12:00] VITALS: BP 105/85
[2018-05-02] MEDS: LIDOCAINE/SOD BICARB 8.4% SYR ID PRN (12:13)
[2018-05-02] MEDS: HEPARIN FLSH (PORT) 500 UN/5ML IVP PRN (12:13)
[2018-05-09 11:11] VITALS: BP 124/47
[2018-05-09] MEDS: HEPARIN FLSH (PORT) 500 UN/5ML IVP PRN (11:21)
[2018-05-09] MEDS: LIDOCAINE/SOD BICARB 8.4% SYR ID PRN (11:21)
[2018-05-09 11:30] LABS: PLATELET COUNT, AUTOMATED 192 K/uL (150-450)
[2018-05-16 10:58] VITALS: BP 122/81
[2018-05-16 11:09] LABS: PLATELET COUNT, AUTOMATED 149 K/uL (150-450)
[2018-05-16 15:39] VITALS: BP 121/54
[2018-05-16 15:55] VITALS: BP 104/91
[2018-05-16 16:44] VITALS: BP 113/64
[~2018-05-23 10:45] MED LIST changes: +ALTEPLASE RECOMB 2 MG VIAL IVP PRN; -AMLO-111 PO; +AMLO-125 PO; -AMLO2.5T76 PO; +AMLO2.5T78 PO; +DEXTROSE 5%(*) 100 ML BAG 100 ML IVPB PRN; +NS(*) 0.9% 100 ML BAG 100 ML IVPB PRN; +NS(*) 0.9% 500 ML BAG 500 ML IV PRN; +SODIUM CHLORIDE 0.9% IVPB ONE; +WATER FOR INJ,STERILE 20 ML IVP PRN; +[UNRECOGNIZED DRUG - OTHER] IVPB ONE
[2018-05-23] MEDS: LIDOCAINE/SOD BICARB 8.4% SYR ID PRN (10:58)
[2018-05-23] MEDS: HEPARIN FLSH (PORT) 500 UN/5ML IVP PRN (10:58)
[2018-05-23 10:59] VITALS: BP 128/65
[2018-05-23 11:02] LABS: PLATELET COUNT, AUTOMATED 147 K/uL (150-450)
== END 2018-07-16 ==
LOC: SPU 10:45
PROVIDERS: ATTEND Internal Medicine Medical Oncology
DX: D46.9 Myelodysplastic syndrome, unspecified (principal); D53.9 Nutritional anemia, unspecified; R53.83 Other fatigue; R42 Dizziness and giddiness; E83.110 Hereditary hemochromatosis
CPT/HCPCS: 36416; 36430; 36591; 82728; 82948; 83540; 83550; 83615; 85025; 86850; 86900; 86901; 86920; 96365; 96366; J0895; J1642; J7040; P9016; 82040; 82247; 82310; 82374; 82435; 82565; 82947; 84075; 84132; 84155; 84295; 84450; 84460; 84520

== ENCOUNTER → 2018-07-27 | Outpatient (CLI) | payer MEDICARE, OTHER ==
[2018-03-10 11:48] VITALS: BMI 27.4
[~2018-07-27] MED LIST changes: -ALTEPLASE RECOMB 2 MG VIAL IVP PRN; -DEXTROSE 5%(*) 100 ML BAG 100 ML IVPB PRN; +HYOS-22 PO; +INSU200I SUBQ; +LORA-630 PO; +MORP100S32 PO; -NS(*) 0.9% 100 ML BAG 100 ML IVPB PRN; -NS(*) 0.9% 500 ML BAG 500 ML IV PRN; -SODIUM CHLORIDE 0.9% IVPB ONE; -WATER FOR INJ,STERILE 20 ML IVP PRN; -[UNRECOGNIZED DRUG - OTHER] IVPB ONE
== END ==
LOC: AMB 12:34
PROVIDERS: ATTEND Nurse Practitioner
DX: R53.1 Weakness (principal); Z74.01 Bed confinement status
CPT/HCPCS: A0425; A0428

== ENCOUNTER → 2018-09-25 | Outpatient (REF) | payer MEDICARE, OTHER ==
[2018-03-10 11:48] VITALS: BMI 27.4
[~2018-09-25] MED LIST changes: +ACET-1966 PO; +BACL5TAB PO; +INSU100I30 SQ; +LEVI SUBQ; +NYST1POW27 MC; +ONDA4TAB9 PO; +OXYGENHOME INH; +SULF-198 PO; +[UNRECOGNIZED DRUG - CODE] RC
== END ==
LOC: ZZSENDIN 12:55
PROVIDERS: ATTEND Emergency Medicine
DX: R82.90 Unspecified abnormal findings in urine (principal)
CPT/HCPCS: 81001